=== PATIENT | male | born 1950 | race Caucasian/White ===

== ENCOUNTER → 2018-01-30 14:40 | Outpatient (CLI) | payer MEDICARE, SELFPAY ==
[2018-01-30 15:01] LABS: Absolute Lymphocyte Count 1.79 X10^3/ul (0.83-4.51); Basophil# 0.01 X10^3/uL; Basophil% 0.1 % (0-1); Eosinophil# 0.11 X10^3/uL; Eosinophils% 1.5 % (0-5); Hematocrit 45.7 % (40-54); Hemoglobin 15.2 g/dl (13.0-16.5); Lymphocyte # 1.79 X10^3/ul (4.0); Lymphocyte % 24.6 % (19-41); Mean Corp Hgb Conc 33.3 g/gl (32-36); Mean Corpuscular Hgb 29.6 pg (27.0-32.0); Mean Corpuscular Volume 88.9 fL (80-94); Mean Platelet Vol. 9.8 fl (6.2-12.0); Monocyte# 0.35 X10^3/uL; Monocyte% 4.8 % (0-10); Neutrophil # 5.01 X10^3/uL (2.7-7.7); Neutrophil % 68.9 % (47-70); Platelet Count 186 K/mm3 (150-450); RBC Distribution Width CV 13.7 % (11.6-14.6); RBC Distribution Width SD 44.7 fl (35.1-43.9); Red Blood Count 5.14 M/mm3 (4.6-6.2); White Blood Count 7.3 K/mm3 (4.4-11.0)
[2018-01-30 15:02] LABS: POSITIVE COUNT NO; POSITIVE DIFFERENTIAL NO; POSITIVE MORPHOLOGY NO
[2018-01-30 15:07] LABS: Erythrocyte Sedimentation Rate 17 mm/hr (0-20)
[2018-01-30 15:16] LABS: Anion Gap 5 (5-15); BUN 13 mg/dL (7-18); BUN/Creat Ratio 12.9 RATIO (10-20); Calcium,Total 8.4 mg/dL (8.5-10.1); Chloride 107 mmol/L (98-107); Creatinine, Serum 1.01 mg/dL (0.70-1.30); EST Glomerular Filtration Rate 78 mL/min (>60); Est Glom Filt Rate - Afr Amer 95 mL/min (>60); Glucose 102 mg/dL (74-106); Potassium 4.1 mmol/L (3.5-5.1); Sodium Level 141 mmol/L (136-145)
--- NOTE | 2018-01-30 17:00 | CT_ITS ---
CT Abdomen And Pelvis W/ Contrast INDICATION: LLQ PAIN, CHOLECYSTECTOMY, PARTIAL COLECTOMY D/T DIVERTICULITIS, ANAL FISSURE REPAIR COMPARISON: None TECHNIQUE: Axial CT imaging of the abdomen and pelvis with oral and intravenous contrast. Coronal and sagittal reformatted images. Radiation dose optimization technique applied. 100 mL of Isovue-300 were given intravenously. FINDINGS: Focal segmental atelectasis is noted at the left posterior lung base. Heart size is within normal limits. The left hemidiaphragm is elevated. The liver and spleen are normal in size. The gallbladder is surgically absent with mild intra-and extrahepatic biliary ductal dilatation. The adrenal glands and pancreas are grossly unremarkable. The kidneys enhance contrast symmetrically bilaterally and are without evidence of hydronephrosis. Small left cortical renal cyst is noted. Bowel loops are nondistended. Appendix is not seen. Postsurgical sutures are noted at the rectosigmoid. There is sigmoid diverticulosis without evidence of acute diverticulitis. Oral contrast material advances regularly throughout the nondistended small bowel loops and colon, seen at the level of the transverse colon at the time of the scan. No evidence of obstruction. Prostate gland is mildly heterogenous and measures 4.5 cm. Urinary bladder is decompressed. Bladder wall is mildly thickened. No evidence of free air or free fluid. The osseous structures demonstrate minimal lumbar scoliosis and early degenerative changes. Incidental note is made of a right-sided testicular hydrocele. CT/Abdomen/Pelvis WITH Contrast IMPRESSION: Sigmoid diverticulosis without evidence of acute diverticulitis at this time. No acute intra-abdominal pelvic pathology identified. at 1739 Reported and signed by: Zo Gomez MD Electronically Signed: Zo Gomez MD at 17:37 EDT Tel , Service support ,
--- NOTE | 2018-01-31 11:46 | EKG12_ITS ---
Test Reason : PRE-OP Blood Pressure : / mmHG Vent. Rate : 087 BPM Atrial Rate : 087 BPM P-R Int : 118 ms QRS Dur : 104 ms QT Int : 364 ms P-R-T Axes : 074 027 047 degrees QTc Int : 438 ms Normal sinus rhythm Possible Left atrial enlargement Borderline ECG Confirmed by MOISES MOONEY, DAVE ([id number]), book or script editor LEMUEL WASHINGTON ([id number]) on 02/03/2018 2:46:33 PM Referred By: Nilay Chino Confirmed By:DAVE DE LEON MD
== END ==
PROVIDERS: Family Provider Family Medicine; PCP Family Medicine; Visit Provider Surgery
DX: R10.32 Left lower quadrant pain (principal)
CPT/HCPCS: 36415; 74177; 80048; 85025; 85652; Q9967

== ENCOUNTER 2018-02-04 05:17 | Day surgery (SDC) | payer MEDICARE, SELFPAY ==
[2018-02-04] VITALS (9 sets, daily range): BP systolic 105–138; BP diastolic 67–86; PULSE 71–83; RESP 14–18; TEMP 36.1–36.6; O2SAT 94–98; BMI 28.5
--- NOTE | 2018-02-04 07:06 | PCM.DC.REC ---
Discharge Diet: No Restrictions Discharge Activity: Return to Normal Activity, May Not Drive - while you are taking narcotic pain medications. Do not drive, work with heavy equipment or sign legal documents for 24 hours after your surgery. Additional Activity Instructions:: Please eat a high-fiber diet and take a daily fiber supplementation. You may utilize 30 cc or 1 ounce of mineral oil in juice or food daily for 1 week. A sitz bath and warm soapy water every 4 hours or as needed for hygiene will be comfort. You may remove the Vaseline gauze tomorrow morning. Allergies/Adverse Reactions: Allergies No Known Allergies Allergy (Verified 01/28/18 13:23) Medications to take at Discharge aspirin 81 mg tablet,delayed release 81 mg PO DAILY 01/21/18 fluticasone 50 mcg/actuation nasal spray,suspension 2 spray INTRANASAL QDAY 01/21/18 hydrocortisone 2.5 % topical cream with perineal applicator 1 applic RC QD-BID PRN 01/21/18 lisinopril 10 mg tablet 10 mg PO QDAY 01/21/18 Citrucel 1 dose PO DAILY 01/28/18 Hydrocodone Bitart/Apap 5-325 [[place] 5MG-325MG] 1 tablet PO Q4H PRN PRN 4 Days #20 tablet 02/04/18 Metronidazole 250 mg PO TID #15 tab 02/04/18 The following prescriptions were given: Hydrocodone Bitart/Apap 5-325 [[place] 5MG-325MG] 1 tablet PO Q4H PRN PRN 4 Days #20 tablet PRN Reason: Pain Metronidazole 250 mg PO TID #15 tab Primary Care Physician: Abdoulaye Barber MD [Primary Care Provider] - Please Follow Up With: Nilay Chino MD - [phone] When: Plan to have a follow up approximately 3 weeks after surgery.
--- NOTE | 2018-02-04 07:15 | HEM_PTH ---
PATIENT: MEHRAN HALE LOC: [facility] [place] U#:[id number] AGE/SX: 67/M ROOM: RE02/04/[address]: Dr. Nilay Chino MD : 1950 BED: DIS: 02/04/2018 SPEC #: [id number] RECD: 02/04/18 08:10 STATUS: PEDRO JONH #: [id number] MARIE: 02/04/18 07:[address]: Nilay Chino DEPT: SURGICAL PATHOLOGY RECD BY: Tato Andrade ENTERED: 02/04/18 09:29 SP TYPE: HEMORRHOID OTHR DR: Dr. Abdoulaye Barber MD Tissues: HEMORRHOIDS Procedures: Surgery Specimen Level III HEADER OPERATION: Rectal exam under anesthesia, hemorrhoidectomy PRE-OP DIAGNOSIS: Grade III hemorrhoids TISSUE SUBMITTED: Hemorrhoids MICROSCOPIC DIAGNOSIS Hemorrhoids, hemorrhoidectomy: Submucosal vascular ectasia and thrombosis consistent with hemorrhoids. AM:jessica 02/05/18 MICROSCOPIC DESCRIPTION Slides are reviewed. GROSS DESCRIPTION Received in fixative is one container labeled with the patient's name and designated hemorrhoids. The specimen consists of two glistening fragments of garay mucosa with attached hemorrhagic submucosal tissue ranging in size from 2.6 to 4.5 cm in greatest dimension. No gross mass lesions are identified. Interventional Tech sections from both fragments are submitted in two cassettes. / AM:jessica 02/04/18 TC:5 CPT: 52745
[2018-02-04] MEDS: Bupivacaine 0.25% 30 ML Vial (07:19)
[2018-02-04] MEDS: BUPIVACAINE LIPOSOME/PF 20 ML VIAL OPERA.SITE (07:19)
[2018-02-04] MEDS: Dibucaine 30 GM Tube 1 APPLIC (07:57)
--- NOTE | 2018-02-04 08:02 | PCM.OPRPT ---
Problem List (1) Hemorrhoids Status: Acute Qualifiers: Report of Operation Date of Procedure: 02/04/18 Pre-Operative Diagnosis: Rectal bleeding, suspected grade 3 hemorrhoids Post-Operative Diagnosis: Grade 3 internal hemorrhoids, healed anterior fissure Surgery/Procedure Performed:: Examination under anesthesia. Extensive internal hemorrhoidectomy. Description of Surgical Findings:: Timeout and informed consent was obtained. 67-year-old gentleman was taken to the operating place prone on the table. 0.25% Marcaine was mixed with Exparel to total 40 cc. The perianal area was prepped. There was erythema excoriation around the anus. The locally she used as an anesthetic as he underwent monitored anesthesia care local anesthetic. In addition he received 2 g of cefotetan inspection revealed a remote fully healed anterior anal fissure. There was exuberant internal hemorrhoids both on the right and left lateral with friability and easy bleeding. Sequentially I placed an apical suture of 2-0 chromic I used harmonic scalpel to excise this and the excess external anal skin. I then approximated mucosa with a running locking 2-0 chromic. I placed an apical lzophc-[id number]-tqqlu suture of 0 chromic to secure the stalk. That was performed bilaterally in eradicated the vast majority of internal hemorrhoidal disease. Small amounts of remaining internal hemorrhoid was simply treated with harmonic scalpel. Hemostasis was intact. A vascular gauze saturated with dibucaine was placed. Sterile dressings placed. Sponge, instrument, needle counts reported the surgeon for correct. Specimens include the hemorrhoids. Drains none. Blood loss minimal. The specimens were submitted in formalin for analysis. No apparent complication. Nilay Chino M.D., F.A.C.S. Type of Anesthesia:: Local MAC Anesthesiologist: Rubia Romo
--- NOTE | 2018-02-04 08:09 | OP.PCM_ITS ---
Problem List (1) Hemorrhoids Status: Acute Qualifiers: Report of Operation Date of Procedure: 02/04/18 Pre-Operative Diagnosis: Rectal bleeding, suspected grade 3 hemorrhoids Post-Operative Diagnosis: Grade 3 internal hemorrhoids, healed anterior fissure Surgery/Procedure Performed:: Examination under anesthesia. Extensive internal hemorrhoidectomy. Description of Surgical Findings:: Timeout and informed consent was obtained. 67-year-old gentleman was taken to the operating place prone on the table. 0.25% Marcaine was mixed with Exparel to total 40 cc. The perianal area was prepped. There was erythema excoriation around the anus. The locally she used as an anesthetic as he underwent monitored anesthesia care local anesthetic. In addition he received 2 g of cefotetan inspection revealed a remote fully healed anterior anal fissure. There was exuberant internal hemorrhoids both on the right and left lateral with friability and easy bleeding. Sequentially I placed an apical suture of 2- 0 chromic I used harmonic scalpel to excise this and the excess external anal skin. I then approximated mucosa with a running locking 2-0 chromic. I placed an apical wzuapx-ts-hxaiv suture of 0 chromic to secure the stalk. That was performed bilaterally in eradicated the vast majority of internal hemorrhoidal disease. Small amounts of remaining internal hemorrhoid was simply treated with harmonic scalpel. Hemostasis was intact. A vascular gauze saturated with dibucaine was placed. Sterile dressings placed. Sponge, instrument, needle counts reported the surgeon for correct. Specimens include the hemorrhoids. Drains none. Blood loss minimal. The specimens were submitted in formalin for analysis. No apparent complication. Nilay Chino M.D., F.A.C.S. Type of Anesthesia:: Local MAC Anesthesiologist: Rubia Romo
== END 2018-02-04 09:39 | disposition home or self-care (01) ==
LOC: SDC 05:17 → AC 05:22
PROVIDERS: Family Provider Family Medicine; PCP Family Medicine; Visit Provider Surgery
PROC: (CPT 46260; principal; 2018-02-04 07:00)
DX: K64.2 Third degree hemorrhoids (principal); Z85.828 Personal history of other malignant neoplasm of skin; I10 Essential (primary) hypertension; Z87.891 Personal history of nicotine dependence; Z79.82 Long term (current) use of aspirin; Z79.899 Other long term (current) drug therapy; Z79.51 Long term (current) use of inhaled steroids
CPT/HCPCS: 46260; 88304; 93005; J7120; J2405

== ENCOUNTER 2018-02-07 05:00 | Emergency (ER) | payer MEDICARE, SELFPAY ==
[2018-02-07 05:01] VITALS: BP 142/98; PULSE 79; RESP 18; TEMP 36.3; O2SAT 97; BMI 29.5
--- NOTE | 2018-02-07 05:18 | ED.VISSUMM ---
- ER Visit Summary Date of Service: 02/07/18 Chief Complaint: Dizziness History of Present Illness: The patient is a 67 M who woke up early this morning and felt dizzy. He describes as a room spinning sensation. He did fall onto his bed because he was so dizzy. He denies a headache. He denies any chest pain. He does feel some slight nausea. He has never had anything like this before. Denies any weakness of his arms or legs. He did have a hemorrhoidectomy done on Saturday. He has been having some mild rectal plane and mild bleeding. He is currently on Flagyl as well. Physical Examination: Vital signs reviewed. HEENT exam unremarkable, except for bilateral nystagmus which does exacerbate symptoms. Heart is regular rate and rhythm without murmurs. Lungs are clear to auscultation. Abdomen is soft and nontender. Extremities reveal no edema. Skin exam normal. Neurologic exam normal. Test Results: Laboratory studies are unremarkable Emergency Department Course and Treatment: Patient was given Zofran, normal saline and meclizine. He feels better after this. This sounds like vertigo. I do not feel any imaging is necessary. I will treat him with meclizine and Zofran at home. He will follow-up with his PCP Treatment Plan: [] Disposition: Discharge Impression: Vertigo This note was generated with [employer] dictation software. It may contain incorrect words, spelling, and punctuation that were not noted in review of the chart prior to signing ED Disposition - Plan for ED Patient: Chief Complaint: Dizziness Referrals: Abdoulaye Barber MD [Primary Care Provider] -
[2018-02-07 05:53] LABS: Absolute Neutrophil Count 4.5 X10^3/uL (2.0-7.7); Basophil# 0.02 X10^3/uL; Basophil% 0.3 % (0-1); Eosinophil# 0.15 X10^3/uL; Eosinophils% 2.4 % (0-5); Hematocrit 42.9 % (40-54); Mean Corp Hgb Conc 32.6 g/gl (32-36); Mean Corpuscular Hgb 29.4 pg (27.0-32.0); Mean Corpuscular Volume 90.1 fL (80-94); Mean Platelet Vol. 9.9 fl (6.2-12.0); Monocyte# 0.44 X10^3/uL; Neutrophil % 71.3 % (47-70); Platelet Count 174 K/mm3 (150-450); RBC Distribution Width CV 13.9 % (11.6-14.6); RBC Distribution Width SD 45.9 fl (35.1-43.9); Red Blood Count 4.76 M/mm3 (4.6-6.2); White Blood Count 6.3 K/mm3 (4.4-11.0)
[2018-02-07] MEDS: 0.9% Normal Saline 1,000 ML 999 ML IV (05:57)
[2018-02-07] MEDS: Meclizine 12.5 MG Tablet 25 MG PO (05:57)
[2018-02-07] MEDS: Ondansetron 4 MG/2 ML Vial IV (05:57)
[2018-02-07 05:58] LABS: POSITIVE COUNT NO; POSITIVE DIFFERENTIAL NO; POSITIVE MORPHOLOGY NO
[2018-02-07 06:02] LABS: Anion Gap 4 (5-15); BUN 13 mg/dL (7-18); BUN/Creat Ratio 13.2 RATIO (10-20); Calcium,Total 8.5 mg/dL (8.5-10.1); Chloride 109 mmol/L (98-107); Creatinine, Serum 0.98 mg/dL (0.70-1.30); EST Glomerular Filtration Rate 81 mL/min (>60); Est Glom Filt Rate - Afr Amer 98 mL/min (>60); Estimated Creatinine Clearance 74.15 ml/min; Glucose 110 mg/dL (74-106); Potassium 3.5 mmol/L (3.5-5.1); Sodium Level 144 mmol/L (136-145)
--- NOTE | 2018-02-07 06:43 | ED.DEP ---
ED Disposition - Plan for ED Patient: Disposition: Home or Assisted Living Chief Complaint: Dizziness Instructions: ED BPV Vertigo Prescriptions: Ondansetron [Zofran Odt] 4 mg PO Q8H PRN PRN #10 tab PRN Reason: Nausea Meclizine HCl [Antivert] 25 mg PO 4X/DAY PRN PRN #20 tab PRN Reason: Dizziness Referrals: Abdoulaye Barber MD [Primary Care Provider] -
[2018-02-07 06:51] VITALS: BP 142/94; PULSE 69; RESP 15; O2SAT 98
== END 2018-02-07 06:51 | disposition home or self-care (01) ==
PROVIDERS: Emergency Provider Emergency Medicine; Family Provider Family Medicine; PCP Family Medicine
DX: R42 Dizziness and giddiness (principal); I10 Essential (primary) hypertension; Z87.19 Personal history of other diseases of the digestive system; Z79.2 Long term (current) use of antibiotics; Z79.82 Long term (current) use of aspirin; Z79.899 Other long term (current) drug therapy
CPT/HCPCS: 80048; 85025; 96374; 99284; J7030; A4216; J2405

== ENCOUNTER → 2018-05-07 09:33 | Outpatient (CLI) | payer MEDICARE, SELFPAY ==
[2018-05-07 10:58] LABS: PSA,Total- Diagnostic 3.76 ng/mL (0.0-4.0)
== END ==
PROVIDERS: Family Provider Family Medicine; PCP Family Medicine; Visit Provider Urology
DX: R97.20 Elevated prostate specific antigen [PSA] (principal)
CPT/HCPCS: 36415; 84153

== ENCOUNTER → 2018-08-21 08:09 | Outpatient (CLI) | payer MEDICARE, SELFPAY ==
--- NOTE | 2018-08-21 08:20 | CT_ITS ---
STUDY: CT SOFT TISSUE NECK WITH CONTRAST REASON FOR EXAM: Male, 68 years old. Diffuse neck pain. History of hypertension. RADIATION DOSAGE (If Supplied By Facility): CTDIvol = ( 19.90 ) mGy, DLP = ( 650.94 ) mGycm TECHNIQUE: The patient was scanned in a multi-detector CT scanner. High resolution transaxial imaging was performed following intravenous administration of 75 ml of Isovue 300 contrast material. Sagittal and coronal images were reconstructed. Individualized dose optimization techniques were used for this CT. COMPARISON: None. FINDINGS: Normal bilateral parotid glands. Normal bilateral dust collector spaces. Normal bilateral parapharyngeal spaces. Normal bilateral carotid spaces. Normal bilateral sublingual and submandibular glands and spaces. Normal visualized nasopharynx. Normal retropharyngeal space. Normal perivertebral space. Normal visualized bilateral faucial tonsils. The visualized tongue, tongue base and oropharynx are normal. The visualized cervical lymph nodes (levels I-) are within normal size limits, and maintain normal morphology. There is no demonstrated solid or cystic mass lesion. There is no abnormal contrast enhancement. Normal epiglottis, bilateral vallecula and hypopharynx. The pre-epiglottic and paraglottic adipose spaces are normal. Normal visualized bilateral piriform sinuses, aryepiglottic folds, vocal cords, and arytenoid-cricoid articulations. Normal subglottic trachea. Normal bilateral lobes of the thyroid gland. Normal visualized pulmonary apices. Small sized mucosal retention cyst in the right maxillary sinus. There is multilevel degenerative changes of the cervical spine. Great vessels of the neck are within normal limits. CT/Soft Tissue Neck WITH Contrast IMPRESSION: No acute findings. No evidence of abscess or bulky lymphadenopathy. Unremarkable salivary glands. Electronically Signed: Fede Urbano DO at 8:15 EST Tel , Service support ,
[2018-08-21 08:31] LABS: CREATININE FINGERSTICK 0.9 mg/dL (0.70-1.30)
== END ==
PROVIDERS: Family Provider Family Medicine; PCP Family Medicine; Referring Provider Otolaryngology; Visit Provider Otolaryngology
DX: M54.2 Cervicalgia (principal)
CPT/HCPCS: 70491; Q9967

== ENCOUNTER 2018-10-16 16:47 | Emergency (ER) | payer MEDICARE, SELFPAY ==
[2018-10-16 16:50] VITALS: BP 157/94; PULSE 72; RESP 14; TEMP 36.1; O2SAT 99; BMI 29.5
--- NOTE | 2018-10-16 17:14 | CT_ITS ---
STUDY: CT BRAIN WITHOUT CONTRAST REASON FOR EXAM: Male, 68 years old. Dizziness. RADIATION DOSAGE (If Supplied By Facility): CTDIvol = ( 44.99 ) mGy, DLP = ( 745.49 ) mGycm TECHNIQUE: Transaxial CT imaging of the brain was performed without administration of intravenous contrast material. Individualized dose optimization techniques were used for this CT. COMPARISON: None. FINDINGS: Normal soft tissue structures. Normal calvarium. Normal size ventricles and extra-axial spaces for the patient's age. Normal white matter tracts of the cerebral hemispheres. Normal basal ganglia and thalami. Normal brainstem. Normal cerebellum. There is no intracranial hemorrhage. There are no findings of an acute ischemic infarction. Normal visualized paranasal sinuses. CT/Brain/Head without Contrast IMPRESSION: Normal unenhanced CT scan of the brain. Electronically Signed: Lan Turner MD at 19:32 EST , Service support ,
--- NOTE | 2018-10-16 17:16 | ED.VISSUMM ---
- ER Visit Summary Date of Service: 10/16/18 Chief Complaint: Dizziness History of Present Illness: The patient is a 68 M who presents with dizziness for the past 3 weeks. Patient saw his ENT physician who did some positioning maneuvers and prescribed Flonase and meclizine. Patient states he does not feel any better. Patient describes his dizziness as a lightheaded. Patient denies any spinning sensation. Patient states it is worse with head movement and with laying down. Patient does admit to some tinnitus in both ears but worse on the right. Patient denies any fevers but admits to some subjective chills that have been intermittent. Patient admits to some nausea but denies any vomiting. Patient does admit to headache and neck pain that feels more like a pressure. Physical Examination: Vital signs are stable. Patient is afebrile. Patient is in no acute distress. Cranial nerves II through XII are intact. There are no focal motor or sensory deficits noted. Pupils are equal, round, and reactive to light bilaterally. Extraocular muscles are intact. There is no nystagmus noted. However, the patient did feel dizzy with extraocular movements. Tympanic membranes were clear bilaterally. Oral mucosa is pink and moist. Neck is supple. Trachea is midline. There is no JVD noted. Heart was regular rate and rhythm. Lungs are clear and equal bilateral. Abdomen is soft and nontender. The remaining physical exam is within normal limits. Test Results: CBC and basic metabolic profile were obtained and were within normal limits. CT scan of the brain was obtained. There is no acute intracranial abnormality noted. Emergency Department Course and Treatment: Patient was given IV fluids. Patient was given a dose of Benadryl here. Patient had no relief of his dizziness with this. Case was discussed with the hospitalist. He recommended discussing the case with the patient's ENT physician. Case was discussed with Dr. De Guzman who is covering for Dr. Leon. He recommended giving the patient a prescription for Valium and following up with Dr. Leon for outpatient MRI and vestibular rehab. Patient was given a prescription for Valium. Patient was instructed to follow-up in 5-7 days. Patient understood and was agreeable with the plan. All questions were answered. Disposition: Discharge home Impression: Dizziness This note was generated with [employer] software. It may contain incorrect words, spelling, and punctuation that were not noted in review of the chart prior to signing ED Disposition - Plan for ED Patient: Disposition: Home or Assisted Living Chief Complaint: Dizziness Diagnosis: Dizziness Instructions: ED Dizziness [facility] Prescriptions: Diazepam [Valium] 5 mg PO Q8H PRN PRN 3 Days #10 tab PRN Reason: Dizziness Referrals: Abdoulaye Barber MD [Primary Care Provider] -
[2018-10-16] MEDS: 0.9% Normal Saline 1,000 ML 1000 ML IV (17:36)
[2018-10-16 17:52] LABS: Absolute Lymphocyte Count 1.73 X10^3/ul (0.83-4.51); Absolute Neutrophil Count 7.4 X10^3/uL (2.0-7.7); Basophil# 0.02 X10^3/uL; Basophil% 0.2 % (0-1); Eosinophil# 0.04 X10^3/uL; Eosinophils% 0.4 % (0-5); Hematocrit 49.3 % (40-54); Hemoglobin 16.4 g/dl (13.0-16.5); Lymphocyte # 1.73 X10^3/ul (4.0); Lymphocyte % 17.5 % (19-41); Mean Corp Hgb Conc 33.3 g/gl (32-36); Mean Corpuscular Hgb 29.9 pg (27.0-32.0); Mean Platelet Vol. 9.9 fl (6.2-12.0); Monocyte# 0.64 X10^3/uL; Monocyte% 6.5 % (0-10); Neutrophil # 7.41 X10^3/uL (2.7-7.7); Neutrophil % 75.2 % (47-70); Platelet Count 176 K/mm3 (150-450); RBC Distribution Width CV 14.1 % (11.6-14.6); RBC Distribution Width SD 46.4 fl (35.1-43.9); Red Blood Count 5.48 M/mm3 (4.6-6.2); White Blood Count 9.9 K/mm3 (4.4-11.0)
[2018-10-16 17:54] LABS: POSITIVE COUNT NO; POSITIVE DIFFERENTIAL NO; POSITIVE MORPHOLOGY NO
[2018-10-16 18:00] LABS: Anion Gap 7 (5-15); BUN 12 mg/dL (7-18); BUN/Creat Ratio 12.4 RATIO (10-20); Calcium,Total 8.9 mg/dL (8.5-10.1); Chloride 103 mmol/L (98-107); Creatinine, Serum 0.96 mg/dL (0.70-1.30); EST Glomerular Filtration Rate 83 mL/min (>60); Est Glom Filt Rate - Afr Amer 100 mL/min (>60); Estimated Creatinine Clearance 74.67 ml/min; Glucose 99 mg/dL (74-106); Potassium 3.8 mmol/L (3.5-5.1); Sodium Level 142 mmol/L (136-145)
[2018-10-16 19:24] VITALS: BP 141/90; PULSE 80; RESP 14; O2SAT 98; BMI 29.5
--- NOTE | 2018-10-16 20:14 | PCM.HP.STD ---
History of Present Illness The patient is a 68 year old M [] Past Medical History Past Medical History (Chronic Problems): Chronic Problems (Last Reviewed 02/24/18 @ 08:49 by Marta Rosario) Hypertension (Chronic) Medical History: Medical History (Last Reviewed 02/24/18 @ 08:49 by Marta Rosario) Hemorrhoids (Acute) K64.9 Chest pain (Acute) R07.9 Hypertension (Chronic) I10 Allergies No Known Allergies Allergy (Verified 10/16/18 16:52) Home Medications: Ambulatory Orders Medication Instructions Recorded aspirin 81 mg tablet,delayed 81 mg PO DAILY 01/21/18 release fluticasone 50 mcg/actuation nasal 2 spray INTRANASAL QDAY 01/21/18 spray,suspension lisinopril 10 mg tablet 10 mg PO DAILY 01/21/18 Acetaminophen [Tylenol Extra 1,000 mg PO Q6H PRN PRN 10/16/18 Strength] MethylPREDNISolone DosePak [Medrol 4 mg PO UD 10/16/18 DosePak] Methylcellulose [Citrucel] 5 ml PO DAILY 10/16/18 Surgical History: Surgical History (Last Updated 02/24/18 @ 08:49 by Marta Rosario) H/O colonoscopy (Acute) Z98.890 2011 History of inguinal hernia repair (Acute) Z98.890, Z87.19 History of colon surgery (Acute) Z98.890 S/P laparoscopic cholecystectomy (Acute) Z90.49 S/P hemorrhoidectomy Z98.890, Z87.19 Surgical History: appendectomy, cholecystectomy, herniorrhaphy, - - Colon resection secondary to particular disease Psychiatric History: No pertinent psych hx Smoking Status: Never smoker Tobacco Use: Cigarettes - *Family History Maternal Family History: Family History (Last Reviewed 02/24/18 @ 08:49 by Marta Rosario) Mother Cancer History Items: Cancer - Lung cancer Paternal Family History: Family History (Last Reviewed 02/24/18 @ 08:49 by Marta Rosario) Mother Cancer History Items: No pertinent history - Physical Exam Vital Signs Temp Pulse Resp BP Pulse Ox 97 F L 80 14 141/90 H 98 10/16/18 16:50 10/16/18 19:24 10/16/18 19:24 10/16/18 19:24 10/16/18 19:24 Oxygen Delivery Method Room Air Weight: 90.718 kg Body Mass Index (BMI) 29.5 Laboratory Tests Past 24 Hrs 10/16/18 10/16/18 17:30 17:30 WBC 9.9 RBC 5.48 Hgb 16.4 Hct 49.3 MCV 90.0 MCH 29.9 MCHC 33.3 RDW 14.1 RDW Differential 46.4 H Plt Count 176 MPV 9.9 Immature Gran % (Auto) 0.200 Neut % (Auto) 75.2 H Lymph % (Auto) 17.5 L [place] % (Auto) 6.5 Eos % (Auto) 0.4 Baso % (Auto) 0.2 Absolute Neuts (auto) 7.4 Absolute Lymphs (auto) 1.73 Total Counted Not Reportable Sodium 142 Potassium 3.8 Chloride 103 Carbon Dioxide 32.0 Anion Gap 7 BUN 12 Creatinine 0.96 Estim Creat Clear Calc 74.67 Est GFR (MDRD) Af Amer 100 Est GFR (MDRD) Non-Af 83 BUN/Creatinine Ratio 12.4 Glucose 99 Calcium 8.9 Assessment/Plan All Active Problems (Last Reviewed 02/24/18 @ 08:49 by Marta Rosario) Hemorrhoids (Acute) H/O colonoscopy (Acute) History of inguinal hernia repair (Acute) History of colon surgery (Acute) S/P laparoscopic cholecystectomy (Acute) Chest pain (Acute)
[2018-10-16] MEDS: DiphenhydrAMINE 50 MG/ML Syringe 25 MG IV (20:29)
[2018-10-16 21:16] VITALS: BP 123/83; PULSE 78; RESP 16; O2SAT 95
== END 2018-10-16 21:23 | disposition home or self-care (01) ==
PROVIDERS: Emergency Provider Emergency Medicine; Family Provider Family Medicine; PCP Family Medicine
DX: R42 Dizziness and giddiness (principal); H93.13 Tinnitus, bilateral; R51 Headache; M54.2 Cervicalgia; R11.0 Nausea
CPT/HCPCS: 70450; 80048; 85025; 96361; 96374; 99283; J7030; A4216

== ENCOUNTER → 2018-10-23 07:04 | Outpatient (CLI) | payer MEDICARE, SELFPAY ==
[2018-10-16 16:50] VITALS: BMI 29.5
--- NOTE | 2018-10-23 07:17 | MRI_ITS ---
STUDY: MRI BRAIN WITH AND WITHOUT CONTRAST (ATTENTION INTERNAL AUDITORY CANALS - I.A.C.'s) REASON FOR EXAM: Male, 68 years old. dizziness, lightheaded x 4 wks, chronic tinnitus rt ear. TECHNIQUE: Standardized multiplanar fat and water weighted pulse sequences were obtained. 10 ml of Gadavist contrast material was administered intravenously for the contrast portion of the examination. COMPARISON: None. FINDINGS: Normal bilateral temporal bones. Normal bilateral internal auditory canals. There is no demonstrated intracanalicular or cisternal vestibular schwannoma (acoustic neuroma). There is no enhancement of the bilateral VIIth or VIIIth cranial nerves. Normal bilateral cochlea, vestibules and semicircular canals. Normal size of the ventricles and extra-axial spaces for the patient's age. Normal white matter tracts of the supratentorial brain. Normal bilateral basal ganglia. Normal thalami. Normal flow voids within the major intracranial circulation suggesting patency by spin echo criteria. Normal venous enhancement. There is no enhancing intra-axial or extra-axial abnormality. There is no extra-axial fluid accumulation. Normal sella turcica, pituitary gland, infundibular stalk, optic chiasm and hypothalamus. Normal tectal plate and pineal gland. Normal midbrain, lonnie and medulla. Normal cerebellum. Normal basal cisterns. No demonstrated orbital abnormality, within the constraints of a routine brain study. Normal visualized paranasal sinuses. Normal calvarium and skull base. Normal visualized soft tissue structures. Normal visualized upper cervical spine. MRI/Brain W/WO Contrast IMPRESSION: Normal unenhanced and enhanced MRI of the bilateral internal auditory canals (I.A.C's). Electronically Signed: Paola Pina MD at 8:06 EST Tel , Service support ,
== END ==
PROVIDERS: Family Provider Family Medicine; PCP Family Medicine; Referring Provider Otolaryngology; Visit Provider Otolaryngology
DX: R42 Dizziness and giddiness (principal)
CPT/HCPCS: 70553; A9585

== ENCOUNTER → 2018-11-14 16:18 | Outpatient (CLI) | payer MEDICARE, SELFPAY ==
[2018-11-14 15:12] VITALS: BMI 29.5
--- NOTE | 2018-11-14 15:15 | LES_PTH ---
PATIENT: MEHRAN HALE LOC: [facility] U#:[id number] AGE/SX: 75/M ROOM: RE11/14/[address]: Dr. Nilay Chino MD : 1950 BED: DIS: SPEC #: [id number] RECD: 11/14/18 16:12 STATUS: PEDRO JONH #: [id number] MARIE: 11/14/18 15:[address]: Nilay Chino DEPT: SURGICAL PATHOLOGY RECD BY: Tato Andrade ENTERED: 11/17/18 09:28 SP TYPE: Lesion OTHR DR: Dr. 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 AM:jessica 11/18/18 MICROSCOPIC DESCRIPTION Slides are reviewed. GROSS DESCRIPTION Received in fixative is one container labeled with the patient's name and designated right ear. The specimen consists of an irregular fragment of light garay soft tissue measuring 0.2 x 0.1 x 0.1 cm. The specimen is totally submitted in one cassette. / AM:jessica 11/17/18 TC:5 CPT: 52729
== END ==
PROVIDERS: Family Provider Family Medicine; PCP Family Medicine; Referring Provider Surgery; Visit Provider Surgery
DX: D48.5 Neoplasm of uncertain behavior of skin (principal)
CPT/HCPCS: 88305

== ENCOUNTER → 2018-11-18 09:35 | Outpatient (CLI) | payer MEDICARE, SELFPAY ==
[2018-11-14 15:12] VITALS: BMI 29.5
[2018-11-18 11:11] LABS: PSA,Total- Diagnostic 5.18 ng/mL (0.0-4.0)
== END ==
PROVIDERS: Family Provider Family Medicine; PCP Family Medicine; Referring Provider Urology; Visit Provider Urology
DX: R97.20 Elevated prostate specific antigen [PSA] (principal)
CPT/HCPCS: 36415; 84153

== ENCOUNTER 2018-12-14 09:34 | Emergency (ER) | payer MEDICARE, SELFPAY ==
[2018-11-14 15:12] VITALS: BMI 29.5
[2018-12-14 09:35] VITALS: BP 165/88; PULSE 92; RESP 16; TEMP 36.4; O2SAT 98; BMI 29.5
--- NOTE | 2018-12-14 10:16 | ED.VISSUMM ---
- ER Visit Summary Date of Service: 12/14/18 Chief Complaint: Allergic reaction History of Present Illness: The patient is a 68 M chief hypertension on lisinopril which she is been on for years. Recently was on fluoxetine for anxiety. On Saturday he started getting itching of his palm Saturday developed hives in his axilla chest and swelling of his lip. He is never had anything like this before. He denies any new soaps or colognes or detergents. He is on no other new medications. He denies feeling ill. He was seen in urgent care they told him to take Benadryl. He has been using children's Benadryl. However is not been improving. Physical Examination: Well-appearing older male. Vital signs are stable afebrile. H EENT exam unremarkable. Neck nontender no lymphadenopathy. Lungs clear to auscultation bilaterally. Heart regular rhythm no murmur. Abdomen soft nontender. Remedies moves all 4. He has had hives in both axilla. Rash along his neck that is red and blanches. Swelling of his lips mildly. Not his tongue. Posterior pharynx is unremarkable. No trouble swallowing or breathing. Neurologically is awake alert with no focal motor deficits. Test Results: None Emergency Department Course and Treatment: P.o. prednisone and Benadryl. Discharged home. Treatment Plan: This may or may not be a reaction to the lisinopril. I explained that to the patient and his . We will hold the lisinopril for now. He will be started on prednisone 40 mill grams a day for the next 7 days. Benadryl as needed. And follow-up with his primary care physician to be placed on a new antihypertensive medication. Disposition: Discharge Impression: Acute allergic reaction (concern for MELCHOR inhibitor reaction) This note was generated with [employer] dictation software. It may contain incorrect words, spelling, and punctuation that were not noted in review of the chart prior to signing ED Disposition - Plan for ED Patient: Referrals: Abdoulaye Barber MD [Primary Care Provider] -
--- NOTE | 2018-12-14 10:19 | ED.DEP ---
ED Disposition - Plan for ED Patient: Disposition: Home or Assisted Living Instructions: ED Allergic Reaction General Other Prescriptions: Prednisone [Deltasone] 40 mg PO DAILY 7 Days tab Referrals: Abdoulaye Barber MD [Primary Care Provider] - As soon as possible Additional Instructions: Stop your lisinopril for now. Discussed your primary care physician me and placed on a new blood pressure medication that is not in the same class as lisinopril (MELCHOR inhibitors). Prednisone 40 mg a day starting tomorrow. May stop 24-48 hours after rash is gone. Benadryl as needed for itching 25-50 mg up to 4 times a day.
[2018-12-14] MEDS: DiphenhydrAMINE 25 MG Capsule PO (10:22)
[2018-12-14] MEDS: predniSONE 20 MG Tablet 60 MG PO (10:22)
== END 2018-12-14 11:06 | disposition home or self-care (01) ==
LOC: ED 10:34
PROVIDERS: Emergency Provider Emergency Medicine; Family Provider Family Medicine; PCP Family Medicine
DX: T78.40XA Allergy, unspecified, initial encounter (principal); I10 Essential (primary) hypertension; Z79.899 Other long term (current) drug therapy; Z79.82 Long term (current) use of aspirin
CPT/HCPCS: 99283

== ENCOUNTER → 2019-01-21 14:47 | Outpatient (CLI) | payer MEDICARE, SELFPAY | PROVIDERS: Family Provider Family Medicine; PCP Family Medicine; Referring Provider Urology; Visit Provider Urology | DX: R97.20 Elevated prostate specific antigen [PSA] (principal) | CPT/HCPCS: 36415; 84153 ==

== ENCOUNTER 2019-03-15 09:05 | Emergency (ER) | payer MEDICARE, SELFPAY ==
[2019-03-15 09:07] VITALS: BP 161/91; PULSE 77; RESP 20; TEMP 36.6; O2SAT 96; BMI 29.5
--- NOTE | 2019-03-15 09:15 | RAD_ITS ---
STUDY: X-RAY - LEFT ELBOW REASON FOR EXAM: Male, [address] Kaye TECHNIQUE: 3 view(s) of the elbow. COMPARISON: None. FINDINGS: Normal visualized humerus, radius and ulna. There is degenerative arthrosis of the radiocapitellar and ulnotrochlear articulations. There is enthesopathy of the olecranon. There is also enthesopathy at the bilateral collateral ligaments of the elbow. The soft tissue structures are unremarkable. RAD/Elbow min 3 Views IMPRESSION: Degenerative change of the left elbow. No visualized acute fracture. If patient's pain or symptoms persist an MRI may be warranted to evaluate for any soft tissue injury. Electronically Signed: Shelby Babcock MD at 9:51 EDT Tel , Service support ,
[2019-03-15] MEDS: Naproxen 500 MG Tablet PO (09:30)
[2019-03-15] MEDS: HYDROcodone Bitartrate/Apap 5/325 Tablet PO (09:30)
--- NOTE | 2019-03-15 09:35 | ED.DCSUM_ITS ---
History of Present Illness Chief Complaint: Upper Extremity Injury Informant: Patient Occurred: Today Mechanism/Context: Injury Current Severity: Mild Maximum Severity: Severe Worsened by: Palpation or movement Relieved by: Better with rest Associated Symptoms: Loss of Funtion. Negative for: Parasthesia, Weakness Narrative: Patient is a 68-year-old [id number] male who presents with injury to his left elbow. He states he was working on his brakes prior to going to religion. He pulled on the ranch with his left upper extremity and felt a snap and pop which he localizes in the proximity of the left radial head. He is presently holding his left upper extremity adductor and internally rotated with the elbow flexed at 90 degrees. He denies paresthesia or anesthesia. He denies direct trauma. Prior similar symptoms: No Recent Illness/Hospitalization: No - Past Medical History (1) Hypertension Status: Chronic Past Medical History - Allergies and Home Meds Allergies/Adverse Reactions: Allergies lisinopril Allergy (Verified 03/15/19 09:10) Angioedema Primary Care Physician: Abdoulaye Barber MD [Primary Care Provider] - Surgical History: appendectomy, cholecystectomy, herniorrhaphy, - - Colon resection secondary to particular disease Lives: Spouse/ Significant Other Smoking Status: Former smoker Drugs: None - Family History Maternal Family History: Family History (Last Reviewed 11/19/18 @ 12:55 by Judy Quiroz) Mother Cancer Family History: Reports: Cancer - Lung cancer Paternal Family History: Family History (Last Reviewed 11/19/18 @ 12:55 by Judy Quiroz) Mother Cancer Family History: Reports: No pertinent history Review of Systems Musculoskeletal: Reports: Extremity Pain - Left elbow. Patient points to the region of over the radial head.. Denies: Myalgias, Arthralgias, Neck pain, Back pain, Swelling Skin: Denies: Rash, Wounds Neurological: Denies: Weakness, Parasthesia, Numbness Hematologic: Denies: Easy bruising, Easy bleeding Allergy: Denies: Uticaria, Swelling of the mouth Physical Exam Vital Signs/Narrative: Vital Signs Temp Pulse Resp BP Pulse Ox 03/15/19 09:07 98 F 77 20 H 161/91 H 96 Left Shoulder: Negative for: Abrasion, Contusion, Deformity, Edema, Hematoma, Limited ROM, - Left Humerus: Negative for: Abrasion, Contusion, Deformity, Edema, Hematoma, Limited ROM, - Left Elbow: Limited ROM. Negative for: Abrasion, Contusion, Deformity, Edema, Hematoma, - - Patient reluctant and hesitant to flex or extend. There is pain the patient over the radial head and pain is worse with supination pronation. There was no pain the patient over the lateral or medial epicondyle. There is no pain the patient over the olecranon process. Left Forearm: Negative for: Abrasion, Contusion, Deformity, Edema, Hematoma, Limited ROM, - Left Wrist: Negative for: Abrasion, Contusion, Deformity, Edema, Hematoma, Limited ROM, - - Radial pulses 2+. Left Hand: Negative for: Abrasion, Contusion, Deformity, Edema, Hematoma, Limited ROM, - Left Finger: Negative for: Abrasion, Contusion, Deformity, Edema, Hematoma, Limited ROM, - General: Well nourished, Well developed Head: Normocephalic, Atraumatic Eyes: Perrl, EOMI ENT: No Trauma, Moist Mucous Membranes Neck: Nontender, Full ROM Cardiovascular: Regular rate Respiratory: No distress Skin: Normal color, No rash, No Trauma. Negative for: Cyanosis, Diaphoresis, Jaundice Neurological: Alert, Oriented x3, Cranial nerves II-XII grossly intact, Normal Strength, Normal Sensation, - - Axillary, median, radial and ulnar function intact. Psychological: Normal affect Diagnostic/Tx/Re-eval Chest X-Ray - ED: Read by ED Physician, - - Three-view x-ray of the left elbow reveals no acute fracture. There is arthritic changes noted of the coronoid process. Negative anterior sail sign or posterior fat pad. - Medical Decision Making She received 500 mg Naprosyn and one Preston tablet for his discomfort. X-ray of the elbow was obtained to assess for fracture. Suspect radial head injury. With negative x-ray and negative anterior cell sign fat-pad patient has muscle skeletal injury. Will treat with sling and oral analgesia. We will have him follow-up with PCP in 1 week if not better. ED Disposition - Plan for ED Patient: Disposition: Home or Assisted Living Diagnosis: Unspecified sprain of left elbow, initial encounter Instructions: ED Sprain Elbow Prescriptions: Naproxen [Naprosyn] 500 mg PO BID #14 tab Referrals: Abdoulaye Barber MD [Primary Care Provider] - 1 Week if not improving
== END 2019-03-15 10:16 | disposition home or self-care (01) ==
PROVIDERS: Emergency Provider Emergency Medicine; Family Provider Family Medicine; PCP Family Medicine
DX: S53.402A Unspecified sprain of left elbow, initial encounter (principal); M19.022 Primary osteoarthritis, left elbow; X58.XXXA Exposure to other specified factors, initial encounter; Y93.9 Activity, unspecified; Y92.9 Unspecified place or not applicable; I10 Essential (primary) hypertension; Z79.82 Long term (current) use of aspirin; Z79.899 Other long term (current) drug therapy; Z87.891 Personal history of nicotine dependence
CPT/HCPCS: 73080; 99284

== ENCOUNTER 2019-10-05 07:19 | Emergency (ER) | payer MEDICARE, SELFPAY ==
[2019-10-05 07:20] VITALS: BP 142/85; PULSE 98; RESP 18; TEMP 36.8; O2SAT 99; BMI 29.5
--- NOTE | 2019-10-05 07:37 | ED.VIS.GEN ---
History of Present Illness Chief Complaint: Abd Pain Informant: Patient, Significant Other Onset: Month(s) - Onset approximately 1 month ago Context: Sudden Onset Timing: Intermittent Quality: Pain Location: Right side and sometimes moves to left Current Severity: - - Mild Maximum Severity: Moderate Worsened by: Nothing Relieved by: Nothing Associated Symptoms: No associated symptoms Narrative: Patient is 69-year-old male who presents with left lower quadrant bowel pain that has radiated to the left flank that started 1 month ago. The pain is not constant. There are no exacerbating, precipitating or alleviating factors. There is no associated nausea or vomiting. Patient reports 6 watery mushy stools since yesterday. 3 days ago he was placed on metronidazole and ciprofloxacin for presumed diverticulitis. He has a history of diverticulitis. He denies history of renal ureterolithiasis. He denies dysuria, frequency, urgency or hematuria presently. He states 1 month ago he had urinary symptoms. He did see urologist and was told he had prostatitis. He denied tender prostate on exam and denied testicular pain. He also denied tenesmus. 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 Denies: Visual changes - bilaterally, Blurred Vision - bilaterally, Diplopia ENT: Denies: Bilateral ear pain, Rhinorrhea, Sore throat Cardiovascular: Denies: Chest pain, Palpitations, Heart racing Respiratory: Denies: Dyspnea, Cough, Dyspnea on exertion, Orthopnea, Paroxysmal nocturnal dyspnea Gastrointestinal: Reports: Abdominal pain. Denies: Nausea, Vomiting, Diarrhea, Melena, Hematochezia Genitourinary: Denies: Dysuria, Hematuria, Frequency Musculoskeletal: Denies: Myalgias, Arthralgias, Neck pain, Back pain, Swelling, Extremity Pain Skin: Denies: Rash, Wounds Neurological: Denies: Headache, Weakness, Numbness Hematologic: Denies: Easy bruising, Easy bleeding Allergy: Denies: Uticaria Physical Exam Vital Signs/Narrative: Vital Signs Temp Pulse Resp BP Pulse Ox 10/05/19 07:20 98.3 F 98 18 142/85 H 99 Inital Vital Signs reviewed: Yes General: Well nourished, Well developed, No Acute Distress Head: Normocephalic, Atraumatic Eyes: Perrl, EOMI. Negative for: Pale conjunctiva, Scleral icterus ENT: Moist mucous membranes, No rhinorrhea, TM's clear Neck: Supple, Nontender, No lymphadenopathy, No JVD Cardiovascular: Regular rate, Regular rhythm, No murmurs, Normal S1, Normal S2 Respiratory: No distress, CTA bilaterally, Chest nontender Abdomen: Soft, Nondistended, Normal bowel sounds, No masses, Tender - Minimal/equivocal left lower quadrant abdominal pain. Negative for: Hepatomegaly, Splenomegaly, Ventral hernia, Inguinal hernia Back: Nontender, Normal Inspection. Negative for: CVA tenderness Extremities: Nontender, No edema, - - There is no asymmetry, discoloration or leg vein distention. There is no pain to palpation. Skin: Normal color, No rash, No Trauma. Negative for: Cyanosis, Diaphoresis, Jaundice Neurological: Alert, Oriented x3, Cranial nerves II-XII grossly intact, Normal Strength, Normal Sensation, Normal Gait Psychological: Normal affect, Normal Mood Diagnostic/Tx/Re-eval Impressions Abdomen/Pelvis CT 10/05/19 09:03 IMPRESSION: No acute abdominal or pelvic pathology. No hydronephrosis or renal stone. Electronically Signed: Dale Nicole, at 10:02 EST Tel , Service support , 10/05/19 09:03 Abdomen/Pelvis without Cont [CT] Stat Laboratory Results 10/05/19 10/05/19 10/05/19 07:34 07:34 08:05 WBC 6.4 RBC 5.37 Hgb 15.9 Hct 47.9 MCV 89.2 MCH 29.6 MCHC 33.2 RDW Std Deviation 43.8 RDW Coeff of [place] 13.5 Plt Count 171 MPV 9.7 Immature Gran % (Auto) 0.200 Neut % (Auto) 67.8 Lymph % (Auto) 22.8 [place] % (Auto) 6.7 Eos % (Auto) 2.0 Baso % (Auto) 0.5 Absolute Neuts (auto) 4.4 Absolute Lymphs (auto) 1.47 Nucleated RBC % 0 Sodium 143 Potassium 3.5 Chloride 108 H Carbon Dioxide 33.0 H Anion Gap 2 L BUN 9 Creatinine 1.04 Estim Creat Clear Calc 67.98 Est GFR (MDRD) Af Amer 91 Est GFR (MDRD) Non-Af 75 BUN/Creatinine Ratio 8.7 L Glucose 115 H Calcium 8.6 Urine Color Yellow Urine Clarity Clear Urine pH 6.0 Ur Specific [place] 1.025 Urine Protein Negative Urine Glucose (UA) Normal Urine Ketones Negative Urine Occult Blood 10 H Urine Nitrite Negative Urine Bilirubin Negative Urine Urobilinogen Normal Ur Leukocyte Esterase 25 H Urine RBC 0-5 SEEN Urine WBC 0-5 SEEN Ur Squamous Epith Cells 0 SEEN Urine Bacteria 0 SEEN Urine Mucus 0 SEEN CAT scan was reviewed by me and no obvious pathology noted. Formal read by radiologist revealed no evidence of renal ureterolithiasis and no intra-abdominal pathology noted. White count is normal. Renal function is normal. UA revealed leukoesterase however micro is insignificant was 0-5 RBCs and 0-5 WBCs with no bacteria. Patient was made aware of findings. He was instructed to discontinue antibiotics. He was informed the cause of his pain is unknown. - Rhythm Strip Rhythm Strip: Sinus Rhythm Rate: 88 Ectopy: PAC(s) - Medical Decision Making Patient presents with intermittent left lower quadrant abdominal pain. Because there is radiation to the left flank need to entertain possibility of ureterolithiasis. Suspect patient's diarrhea secondary to antibiotics he was placed for presumed diverticulitis. CBC was obtained to assess white count as well as H&H. Basic metabolic panel was obtained to assess renal function in the event a CT is needed and also to assess renal function since he is having diarrhea. UA was obtained to assess for evidence infection or blood that would raise possibility of ureterolithiasis. ED Disposition - Plan for ED Patient: Disposition: Home or Assisted Living Diagnosis: Left lower quadrant abdominal pain, Acute left flank pain Instructions: ABDOMINAL PAIN, Unkown Cause, (Male) Referrals: Abdoulaye Barber MD [Primary Care Provider] - 1 Week if not improving
[2019-10-05 07:42] LABS: Absolute Lymphocyte Count 1.47 X10^3/uL (0.83-4.51); Absolute Neutrophil Count 4.4 X10^3/uL (2.0-7.7); Basophil# 0.03 X10^3/uL; Basophil% 0.5 % (0-1); Eosinophil# 0.13 X10^3/uL; Hematocrit 47.9 % (40-54); Hemoglobin 15.9 g/dL (13.0-16.5); Lymphocyte # 1.47 X10^3/ul (4.0); Lymphocyte % 22.8 % (19-41); Mean Corp Hgb Conc 33.2 g/dL (32-36); Mean Corpuscular Hgb 29.6 pg (27.0-32.0); Mean Corpuscular Volume 89.2 fL (80-94); Mean Platelet Vol. 9.7 fl (6.2-12.0); Monocyte# 0.43 X10^3/uL; Monocyte% 6.7 % (0-10); NRBC Flagged by Analyzer 0 % (0-5); Neutrophil # 4.37 X10^3/uL (2.7-7.7); Neutrophil % 67.8 % (47-70); Platelet Count 171 K/mm3 (150-450); RBC Distribution Width CV 13.5 % (11.6-14.6); RBC Distribution Width SD 43.8 fl (35.1-43.9); Red Blood Count 5.37 M/mm3 (4.6-6.2); White Blood Count 6.4 K/mm3 (4.4-11.0)
[2019-10-05 07:54] LABS: Anion Gap 2 (5-15); BUN 9 mg/dL (7-18); BUN/Creat Ratio 8.7 RATIO (10-20); Calcium,Total 8.6 mg/dL (8.5-10.1); Chloride 108 mmol/L (98-107); Creatinine, Serum 1.04 mg/dL (0.70-1.30); EST Glomerular Filtration Rate 75 mL/min (>60); Est Glom Filt Rate - Afr Amer 91 mL/min (>60); Estimated Creatinine Clearance 67.98 ml/min; Glucose 115 mg/dL (74-106); Potassium 3.5 mmol/L (3.5-5.1); Sodium Level 143 mmol/L (136-145)
[2019-10-05 08:12] LABS: Bacteria 0 SEEN /hpf (None Seen); Mucous, Urine 0 SEEN /hpf (<or=2+); Squamous Epithelial Cells - UA 0 SEEN /hpf (0-5)
[2019-10-05 08:18] LABS: Color, Urine Yellow (Yellow); Glucose, Dipstick Normal (Normal); Ketone-Dipstick Negative (Negative); Leukocyte Esterase-Dipstick 25 /ul (Negative); Nitrite-Dipstick Negative (Negative); Occult Blood-Urine 10 /ul (Negative); Protein-Dipstick Negative (Negative); Specific Gravity, Urine 1.025 (1.002-1.030); Urine Bilirubin Dipstick Negative (Negative); Urine Clarity Clear (Clear); Urine Urobilinogen Normal (Normal)
[2019-10-05 08:24] LABS: Red Blood Cells-Urine 0-5 SEEN /hpf (0-5); White Blood Cells 0-5 SEEN /hpf (0-5)
--- NOTE | 2019-10-05 09:03 | CT_ITS ---
STUDY: CT ABDOMEN AND PELVIS WITHOUT CONTRAST REASON FOR EXAM: Male, 69 years old. Left flank pain RADIATION DOSAGE (If Supplied By Facility): CTDIvol = ( 8.76 ) mGy, DLP = ( 474.74 ) mGycm TECHNIQUE: Transaxial images were obtained from the dome of the diaphragm to the symphysis pubis without oral contrast, and without intravenous contrast. Sagittal and coronal images were reconstructed. Individualized dose optimization techniques were used for this CT. COMPARISON: CT abdomen and pelvis 01/30/2018. FINDINGS: Lack of intravenous contrast limits evaluation of abdominal and pelvic organs. There is left lower lobe consolidation similar to prior exam which may represent focal atelectasis. The lung bases are otherwise clear. The visualized portions of the heart are within normal limits. Normal liver. There are surgical clips in the gallbladder fossa consistent with a prior cholecystectomy. Normal spleen. Normal pancreas. Normal bilateral adrenal glands. Normal right kidney. There is a 2.2 x 2.1 cm left renal upper pole cyst. No hydronephrosis or renal stones Normal visualized stomach. Normal small intestine. There is a rectosigmoid anastomosis. There is no bowel wall thickening or obstruction. There are surgical clips in the region of the appendix consistent with a prior appendectomy. Normal abdominal aorta. Normal inferior vena cava. Normal retroperitoneum. Normal urinary bladder. There is enlargement of the prostate gland. Normal abdominal wall. There are diffuse degenerative changes of the visualized lumbar spine. There is mild levoscoliosis of the lumbar spine. CT/Abdomen/Pelvis without Cont IMPRESSION: No acute abdominal or pelvic pathology. No hydronephrosis or renal stone. Electronically Signed: Dale Nicole, at 10:02 EST Tel , Service support ,
[2019-10-05 10:18] VITALS: BP 138/80; PULSE 80; RESP 18; O2SAT 96
[2019-10-05 10:38] VITALS: BP 117/62; PULSE 72; RESP 15; O2SAT 98
== END 2019-10-05 10:39 | disposition home or self-care (01) ==
PROVIDERS: Emergency Provider Emergency Medicine; Family Provider Family Medicine; PCP Family Medicine
DX: R10.32 Left lower quadrant pain (principal); I10 Essential (primary) hypertension
CPT/HCPCS: 74176; 80048; 81001; 85025; 99283; A4216

== ENCOUNTER → 2019-10-16 08:34 | Outpatient (CLI) | payer MEDICARE, SELFPAY ==
[2019-10-16 07:58] VITALS: BMI 29.5
[2019-10-16 09:09] LABS: Erythrocyte Sedimentation Rate 9 mm/hr (0-20)
[2019-10-16 09:15] LABS: AST(SGOT) 13 U/L (15-37); Alanine Aminotransfer ALT/SGPT 25 U/L (16-61); Albumin, Serum 3.4 g/dL (3.2-5.0); Alkaline Phosphatase 78 U/L (45-117); Bilirubin, Direct 0.14 mg/dL (0.00-0.30); Globulin 3.9 g/dL (2.2-4.2); Lipase 114 U/L (73-393); Protein, Total 7.3 g/dL (6.4-8.2)
== END ==
PROVIDERS: Family Provider Family Medicine; PCP Family Medicine; Referring Provider Surgery; Visit Provider Surgery
DX: R10.32 Left lower quadrant pain (principal); Z12.5 Encounter for screening for malignant neoplasm of prostate
CPT/HCPCS: 36415; 80076; 83690; 84153; 85652; G0103

== ENCOUNTER 2019-10-19 05:15 | Day surgery (SDC) | payer MEDICARE, SELFPAY ==
[2019-10-16 07:58] VITALS: BMI 29.5
--- NOTE | 2019-10-16 09:51 | HP_ITS ---
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 Required: No Is patient in pain?: No Allergies lisinopril Allergy (Verified 10/16/19 07:57) Angioedema Medications aspirin 81 mg tablet,delayed release 81 mg PO DAILY 01/21/18 [History Confirmed 10/05/19] fluticasone propionate 50 mcg/actuation nasal spray,suspension 2 spray INTRANASAL QDAY 01/21/18 [History Confirmed 10/05/19] methylcellulose (laxative) 1,000 mg PO DAILY g 11/14/18 [History Confirmed 10/05/19] mineral oil 15 ml PO DAILY 11/14/18 [History Confirmed 10/05/19] Naproxen [Naprosyn] 500 mg PO BID #14 tab 03/15/19 [Rx Confirmed 10/05/19] Amlodipine Besylate 5 mg PO DAILY 10/05/19 [History Confirmed 10/05/19] PFSH Medical History Hemorrhoids (Acute) Chest pain (Acute) Hypertension (Chronic) Surgical History Hx of biopsy (Acute) S/P hemorrhoidectomy (Acute) H/O colonoscopy (Acute) History of inguinal hernia repair (Acute) History of colon surgery (Acute) S/P laparoscopic cholecystectomy (Acute) Family History Mother Cancer Social History (Updated 10/16/19 @ 09:51 by Nilay Chino MD) Smoking Status: Never smoker alcohol intake: never substance use type: does not use HPI HPI HPI: MEHRAN HALE, is a 69 M who presents to the office today for HPI HPI Surgical H&P: Yes HPI: MEHRAN HALE, is a 69 M who presents to the office today for surgical consultation regarding a left lower quadrant left midabdomen and left flank pain. Now for about 5 weeks the patient has had problems with left lower quadrant left midabdomen left flank pain. He thought that it felt similar to previous histories of diverticulitis. It is of note that I have previously assisted him April 15, 2012 with a laparoscopic sigmoid colectomy for recurrent diverticulitis. A 16 cm section of the sigmoid colon was removed and mobilization of the splenic flexure was performed. His last endoscopy would have been at that time as well. An appendectomy was performed at that time. No malignancy was identified. I have also previously assisted him with bilateral inguinal hernia repairs. With the onset of the pain he thought he had diverticulitis. Dr. Sanjay Farmer placed him on what sounds like ciprofloxacin and metronidazole. The patient took that for a week but because of the poor taste in his mouth and diarrhea he stopped it. He continues to have pain however it is improving. Because of the discomfort he went to the emergency room on October 05, 2019. He was evaluated by Dr. Cooper. At that time his CBC showed a normal white count of 6.4 with a hemoglobin 15.9 hematocrit 47.9 platelet count 171,000 with a completely normal shift. BUN and creatinine were normal. A noncontrasted CT was obtained which was not remarkable. The patient states that he can feel a knot in the left lower quadrant. His bowel habits have slowly been returning to normal. He has not noticed any bright red blood per rectum or melena. He has had some slight constipation. Of separate note is that the patient just within the last day or 2 developed some adenopathy of the left mid neck and supraclavicular area. He denies any sinus problems or nasal congestion ROS General General: No weight change, appetite, fatigue, colon cancer, breast cancer or weakness HEENT HEENT: Yes swollen glands; no difficulty swallowing, eye injury, eye surgery or hoarseness Endo Endocrine: No thyroid disease, diabetes mellitus, thyroid cancer, Hair loss, heat intolerance or cold intolerance Skin Skin: No rash or changing moles Breast Breast: No left breast lump, right breast lump, nipple discharge, breast pain, abnormal mammogram, abnormal US or breast enlargement Musc Musculoskeletal: No back problems, arthritis, rheumatoid arthritis, gout or joint pain Cardio Cardiovascular: Yes atrial fibrillation; no murmur, pacemaker, heart disease, high blood pressure, heart attack, heart stent, palpitations, shortness of breat with exertion or chest pain Psych Psychiatric: No depression, anxiety or hearing voices Resp Respiratory: No shortness of breath, No sleep apnea, No cough, No COPD, No asthma, No emphysema, No wheezing Gastro Gastrointestinal: Yes abdominal pain, No nausea or vomiting, No diarrhea, No constipation, No blood in stool, No acid reflux, No hemorrhoids, No ulcers, No gallbladder problem, No black,tarry stools Luis Daniel Hematologic: No blood thinners, No blood disorders, No bleeding, No anemia, No blood clots Neuro Neurologic: No system reviewed and no additional complaints, except as docu, No as per HPI, No abnormal walking, No abnormal hearing, No abnormal movements, No abnormal speech, No behavioral changes, No burning sensations, No confusion, No seizure-like activity, No unsteadiness, No dizziness, No localized weakness, No frequent falls, No headache(s), No lack of coordination, No loss of vision, No memory loss, No numbness, No other visual disturbances, No radiating pain, No restless legs, No sensory deficit, No fainting, No tingling, No tremor(s), No weakness, No other Exam Const General: cooperative, healthy appearing, comfortable, anxious Nutritional Appearance: average body habitus Orientation: alert, awake, oriented x3 HENMT Other: Neck is supple, rubbery 1.5 cm lymph node left mid neck nontender no erythema Eyes General: appearance normal, both eyes and all related structures Chest Chest palpation & inspection: normal inspection of the chest Breast Palpation: No nipple discharge Resp Effort & Inspection: normal respiratory effort Auscultation: clear to auscultation bilaterally Cardio Rate: regular rate Rhythm: regular rhythm Heart Sounds: no murmurs GI Inspection: normal to inspection Palpation: soft, no hepatosplenomegaly Other: Hyperactive bowel sounds, no tinkles or rushes Other: Well-healed bilateral groin incisions, no palpable hernias. Not the site of the patient's knot-like feeling Skin Other: The left flank does not demonstrate any rash or vesicular lesion Neuro Cognition: normal cognition Extrem General: no calf tenderness bilaterally Psych Affect: anxious affect Assessment & Plan Problems 1. Left lower quadrant abdominal pain R10.32 Plan 69-year-old gentleman with left midabdomen left lower quadrant left flank pain of undetermined etiology. Certainly by his history he correlates the discomfort similar to remote bouts of diverticulitis prior to his laparoscopic sigmoid colectomy. Imaging without oral contrast unfortunate does not demonstrate any signs that would correlate with that. He was placed on a appropriate course of antibiotics nearly 5 weeks ago and although the patient is improving he still has a sense that there is a knot in the left lower quadrant. On clinical examination I cannot detect any mass or hernia or tenderness. I recommend we obtain some liver function tests and lipase for the potential possible tail of the pancreas pancreatitis though not visualized on CT. Recommend that we obtain an ESR looking for potential source of residual inflammation. The patient states he is due for screening PSA. I have proposed with the patient a colonoscopy with possible biopsy or polypectomy as indicated. Very careful inspection of the colon will be pursued and if need be biopsies obtained. At this point with the patient now 5 weeks plus into this I do not think that a repeat CT scan with oral contrast at this moment is indicated. The patient seems to be slowly clinically improved. I am wondering whether this not like sensation that he describes which she does admit has been there for multiple years. He may have had an episode of diverticulitis that resolved with the clear liquid diet antibiotics and bowel rest. I appreciate the opportunity of assisting with her surgical care and we will try to assist with a diagnosis. His most recent colonoscopy was been prior to his laparoscopic sigmoid colectomy of April 2012 CC: Dr. Abdoulaye Chino M.D., F.A.C.S. Orders Orders: Colonoscopy Today R10.32 Lipase Today R10.32 Liver Profile Today R10.32 Erythrocyte Sed Rate Today R10.32 PSA Serial Monitor Today R10.32 Coding Level of Care Code Off vis,new,level 4 Diagnoses Left lower quadrant abdominal pain R10.32 ??Abdominal location: left lower quadrant 10/16/19 0951 <Electronically signed by Nilay rucker MD> Date _ Nilay Chino MD I have re-examined the patient. There are no clinical changes since date of exam.
[2019-10-19] VITALS (9 sets, daily range): BP systolic 84–154; BP diastolic 65–103; PULSE 82–96; RESP 16; TEMP 36.2–36.4; O2SAT 91–100; BMI 28.2
--- NOTE | 2019-10-19 | COLBX_PTH ---
PATIENT: MEHRAN HALE LOC: EN U#:[id number] AGE/SX: 69/M ROOM: RE10/19/[address]: Dr. Nilay Chino MD : 1950 BED: DIS: 10/19/2019 SPEC #: [id number] RECD: 10/19/19 07:24 STATUS: PEDRO JONH #: [id number] MARIE: 10/19/19 00:[address]: Nilay Chino DEPT: SURGICAL PATHOLOGY RECD BY: Herb Iverson ENTERED: 10/19/19 07:58 SP TYPE: COLON BX RAEGAN DR: Dr. Abdoulaye Barber MD Tissues: A - COLON BIOPSY B - Sigmoid colon biopsy Procedures: Surgery Specimen Level IV HEADER OPERATION: Colonoscopy (MOD) PRE-OP DIAGNOSIS: LLQ pain, change in bowel habits TISSUE SUBMITTED: A - Random colon biopsy, B - Polyp vs granuloma tissue at anastomosis rectosigmoid MICROSCOPIC DIAGNOSIS A. Colon, random biopsy: Fragments of colonic mucosa, no pathologic diagnosis. B. Rectosigmoid polyp, biopsy: Fragments of colonic mucosa with granulation tissue reaction. Negative for adenomatous changes. TOMAS:jessica 10/20/19 MICROSCOPIC DESCRIPTION Slides are reviewed. GROSS DESCRIPTION A - Received in fixative is one container labeled with the patient's name and designated random colon biopsy. The specimen consists of multiple irregular fragments of light garay soft tissue that in aggregate measure 1.5 x 0.6 x 0.1 cm. The specimen is totally submitted in one cassette. B - Received in fixative is one container labeled with the patient's name and designated rectosigmoid polyp. The specimen consists of multiple irregular fragments of light garay soft tissue that in aggregate measure 0.6 x 0.5 x 0.1 cm. The specimen is totally submitted in one cassette. / AM:jessica 10/19/19 TC:5 CPT: 75465 x2
[2019-10-19] MEDS: Lactated Ringers 1,000 ML 100 ML IV (06:17)
--- NOTE | 2019-10-19 06:57 | OP.COLON_ITS ---
Patient Name: Trell Merida Procedure Date: 10/19/2019 5:57 AM Date of : 1950 Age: 69 Procedure: Colonoscopy Indications: Abdominal pain in the left upper quadrant Providers: Nilay Chino MD Referring MD: Abdoulaye Barber Medicines: Midazolam 4.5 mg IV, Meperidine 100 mg IV Patient Profile: Last Colonoscopy: more than 3 years ago. Complications: No immediate complications. Procedure: Pre-Anesthesia Assessment: - Prior to the procedure, a History and Physical was performed, and patient medications and allergies were reviewed. The patient's tolerance of previous anesthesia was also reviewed. The risks and benefits of the procedure and the sedation options and risks were discussed with the patient. All questions were answered, and informed consent was obtained. Prior Anticoagulants: The patient has taken no previous anticoagulant or antiplatelet agents. ASA Grade Assessment: II - A patient with mild systemic disease. After reviewing the risks and benefits, the patient was deemed in satisfactory condition to undergo the procedure. After I obtained informed consent, the scope was passed under direct vision. Throughout the procedure, the patient's blood pressure, pulse, and oxygen saturations were monitored continuously. The pediatric colonoscope was introduced through the anus and advanced to the cecum, identified by appendiceal orifice and ileocecal valve. The colonoscopy was performed without difficulty. The patient tolerated the procedure well. The quality of the bowel preparation was good. The ileocecal valve and the appendiceal orifice were photographed. Moderate Sedation: Moderate (conscious) sedation was personally administered by the endoscopist. The following parameters were monitored: oxygen saturation, heart rate, blood pressure, and response to care. Total physician intraservice time was 15 minutes. Scope In: 6:34:53 AM Scope Withdrawal Time 0 hours 9 minutes 25 seconds Scope Out: 6:48:33 AM Total Procedure Duration Time 0 hours 13 minutes 40 seconds Findings: The digital rectal exam findings include non-thrombosed external hemorrhoids, non-thrombosed internal hemorrhoids, internal hemorrhoids that prolapse with straining, but spontaneously regress to the resting position (Grade II) and enlarged prostate. A 7 mm polyp was found in the recto-sigmoid colon. The polyp was sessile. The polyp was removed with a hot snare. Resection and retrieval were complete. Multiple diverticula were found in the entire colon. There was evidence of a prior end-to-end colo-colonic anastomosis in the recto-sigmoid colon. This was patent. Random colonic biopsies obtained for possible microcytic colitis Impression: - Non-thrombosed external hemorrhoids, non-thrombosed internal hemorrhoids, internal hemorrhoids that prolapse with straining, but spontaneously regress to the resting position (Grade II) and enlarged prostate found on digital rectal exam. - One 7 mm polyp at the recto-sigmoid colon, removed with a hot snare. Resected and retrieved. Possible granuloma related to anastomosis - Diverticulosis in the entire examined colon. - Patent end-to-end colo-colonic anastomosis. Random biopsies pending Recommendation: - Discharge patient to home. - Resume previous diet. - Continue present medications. - Use Prilosec (omeprazole) 40 mg PO daily as patient is having left mid abdomen and upper quadrant and flank pain. High anxiety, possible peptic disease.. - Repeat colonoscopy in 5 years for surveillance based on pathology results. - Telephone my office for pathology results in 1 week. Procedure Code(s): --- Professional --- 69592, Colonoscopy, flexible; with removal of tumor(s), polyp(s), or other lesion(s) by snare technique 86470, 59, Moderate sedation services provided by the same physician or other qualified health animal care specialist performing the diagnostic or therapeutic service that the sedation supports, requiring the presence of an independent trained observer to assist in the monitoring of the patient's level of consciousness and physiological status; initial 15 minutes of intraservice time, patient age 5 years or older Diagnosis Code(s): --- Professional --- D12.7, Benign neoplasm of rectosigmoid junction K64.1, Second degree hemorrhoids K64.4, Residual hemorrhoidal skin tags Z98.0, Intestinal bypass and anastomosis status R10.12, Left upper quadrant pain N40.0, Benign prostatic hyperplasia without lower urinary tract symptoms K57.30, Diverticulosis of large intestine without perforation or abscess without bleeding CPT copyright 2017 [employer]. All rights reserved. The codes documented in this report are preliminary and upon clerical supervisor review may be revised to meet current compliance requirements. Nilay Chino MD 10/19/2019 6:56:23 AM This report has been signed electronically. Number of Addenda: 0 Note Initiated On: 10/19/2019 5:57 AM
== END 2019-10-19 08:16 | disposition home or self-care (01) ==
LOC: EN 05:16 → AC 05:17
PROVIDERS: Family Provider Family Medicine; PCP Family Medicine; Referring Provider Family Medicine; Visit Provider Surgery
PROC: 0DJD8ZZ Inspection of Lower Intestinal Tract, Via Natural or Artificial Opening Endoscopic (ICD-10-PCS; CPT 45378; principal; 2019-10-19 06:25)
DX: K63.5 Polyp of colon (principal); K64.4 Residual hemorrhoidal skin tags; K64.1 Second degree hemorrhoids; K57.30 Diverticulosis of large intestine without perforation or abscess without bleeding; N40.0 Benign prostatic hyperplasia without lower urinary tract symptoms; Z98.0 Intestinal bypass and anastomosis status; I10 Essential (primary) hypertension; Z90.49 Acquired absence of other specified parts of digestive tract; Z79.82 Long term (current) use of aspirin; Z79.899 Other long term (current) drug therapy
CPT/HCPCS: 45385; 88305; 99152; 99153; J7120

== ENCOUNTER → 2020-08-23 14:06 | Outpatient (CLI) | payer MEDICARE, SELFPAY ==
[2020-04-14 08:19] VITALS: BMI 28.2
== END ==
PROVIDERS: PCP Family Medicine; Referring Provider Nurse Practitioner Adult Health; Visit Provider Nurse Practitioner Adult Health
DX: R31.9 Hematuria, unspecified (principal)
CPT/HCPCS: 87086

== ENCOUNTER 2020-10-25 12:20 | Emergency (ER) | payer MEDICARE, SELFPAY ==
[2020-04-14 08:19] VITALS: BMI 28.2
[2020-10-25 12:20] VITALS: BP 153/98; PULSE 98; RESP 16; TEMP 36.6; O2SAT 98; BMI 29.5
--- NOTE | 2020-10-25 12:47 | EKG12_ITS ---
Test Reason : CP Blood Pressure : / mmHG Vent. Rate : 089 BPM Atrial Rate : 089 BPM P-R Int : 114 ms QRS Dur : 102 ms QT Int : 364 ms P-R-T Axes : 067 011 051 degrees QTc Int : 442 ms Normal sinus rhythm Normal ECG Confirmed by MOISES MOONEY, DAVE ([id number]), food editor LIZZY JOHNSON ([id number]) on 10/27/2020 11:29:39 AM Referred By: EVAN Confirmed By:DAVE DE LEON MD
[2020-10-25 12:58] LABS: Absolute Lymphocyte Count 1.47 X10^3/uL (0.83-4.51); Absolute Neutrophil Count 4.5 X10^3/uL (2.0-7.7); Basophil# 0.03 X10^3/uL; Basophil% 0.5 % (0-1); Eosinophil# 0.15 X10^3/uL; Eosinophils% 2.3 % (0-5); Hematocrit 48.9 % (40-54); Hemoglobin 16.3 g/dL (13.0-16.5); Lymphocyte # 1.47 X10^3/ul (4.0); Lymphocyte % 22.1 % (19-41); Mean Corp Hgb Conc 33.3 g/dL (32-36); Mean Corpuscular Hgb 29.7 pg (27.0-32.0); Mean Corpuscular Volume 89.1 fL (80-94); Mean Platelet Vol. 9.9 fl (6.2-12.0); Monocyte# 0.47 X10^3/uL; Monocyte% 7.1 % (0-10); NRBC Flagged by Analyzer 0 % (0-5); Neutrophil # 4.51 X10^3/uL (2.7-7.7); Neutrophil % 67.8 % (47-70); Platelet Count 196 K/mm3 (150-450); RBC Distribution Width CV 13.1 % (11.6-14.6); RBC Distribution Width SD 42.9 fl (35.1-43.9); Red Blood Count 5.49 M/mm3 (4.6-6.2); White Blood Count 6.6 K/mm3 (4.4-11.0)
--- NOTE | 2020-10-25 12:58 | ED.VIS.GEN ---
History of Present Illness Chief Complaint: Chest Pain Informant: Patient Narrative: 70-year-old male with a history of hypertension states for the past 2 weeks has had a pain left upper chest into left shoulder region. He states it is a sharp ache. Nothing seems to make it better or worse. He reports that he was waiting to see if it would resolve because he felt that it was a muscle. He states that he is short of breath when he carries things up stairs but that is unchanged has been going on for years. No prior heart issues that he is aware of. - Past Medical History (1) History of diverticulitis Status: Chronic (2) Hypertension Status: Chronic Past Medical History - Allergies and Home Meds Allergies/Adverse Reactions: Allergies lisinopril Allergy (Verified 10/25/20 12:23) Angioedema Primary Care Physician: Abduolaye Barber MD [Primary Care Provider] - Surgical History: appendectomy, cholecystectomy, herniorrhaphy, - - Colon resection secondary to particular disease Smoking Status: Former smoker - Quit x40 years ago Drugs: None - Family History Maternal Family History: Family History (Last Reviewed 04/14/20 @ 08:09 by Ange Olmedo) Mother Cancer Family History: Reports: Cancer Paternal Family History: Family History (Last Reviewed 04/14/20 @ 08:09 by Ange Olmedo) Mother Cancer Family History: Reports: No pertinent history Review of Systems General: Denies: Chills, Fever, Sweats Eyes: Denies: Visual changes - bilaterally, Diplopia ENT: Denies: Rhinorrhea, Sore throat Cardiovascular: Reports: Chest pain. Denies: Palpitations Respiratory: Denies: Dyspnea, Cough, Dyspnea on exertion Gastrointestinal: Denies: Abdominal pain, Nausea, Vomiting, Diarrhea, Melena, Hematochezia Genitourinary: Denies: Dysuria, Hematuria, Frequency Musculoskeletal: Reports: Extremity Pain. Denies: Back pain Skin: Denies: Rash, Wounds Neurological: Denies: Headache, Weakness, Numbness Physical Exam Vital Signs/Narrative: Vital Signs Temp Pulse Resp BP Pulse Ox 10/25/20 12:20 97.8 F 98 16 153/98 H 98 Inital Vital Signs reviewed: Yes General: Well nourished, Well developed, No Acute Distress Head: Normocephalic, Atraumatic Eyes: Perrl, EOMI ENT: Moist mucous membranes, No rhinorrhea Neck: Supple, Nontender Cardiovascular: Regular rate, Regular rhythm, No murmurs Respiratory: No distress, CTA bilaterally, Chest nontender Abdomen: Soft, Nontender, Nondistended, Normal bowel sounds Back: Nontender, Normal Inspection Extremities: Nontender, No edema Skin: Normal color, No rash Neurological: Alert, Oriented x3, Cranial nerves II-XII grossly intact, Normal Strength, Normal Sensation Psychological: Normal affect, Normal Mood Diagnostic/Tx/Re-eval Laboratory Last Values WBC 6.6 K/mm3 (4.4-11.0) 10/25/20 12:35 RBC 5.49 M/mm3 (4.6-6.2) 10/25/20 12:35 Hgb 16.3 g/dL (13.0-16.5) 10/25/20 12:35 Hct 48.9 % (40-54) 10/25/20 12:35 MCV 89.1 fL (80-94) 10/25/20 12:35 MCH 29.7 pg (27.0-32.0) 10/25/20 12:35 MCHC 33.3 g/dL (32-36) 10/25/20 12:35 RDW Std Deviation 42.9 fl (35.1-43.9) 10/25/20 12:35 RDW Coeff of Adrian 13.1 % (11.6-14.6) 10/25/20 12:35 Plt Count 196 K/mm3 (150-450) 10/25/20 12:35 MPV 9.9 fl (6.2-12.0) 10/25/20 12:35 Immature Gran % (Auto) 0.200 % (0.0-0.9) 10/25/20 12:35 Neut % (Auto) 67.8 % (47-70) 10/25/20 12:35 Lymph % (Auto) 22.1 % (19-41) 10/25/20 12:35 [place] % (Auto) 7.1 % (0-10) 10/25/20 12:35 Eos % (Auto) 2.3 % (0-5) 10/25/20 12:35 Baso % (Auto) 0.5 % (0-1) 10/25/20 12:35 Absolute Neuts (auto) 4.5 X10^3/uL (2.0-7.7) 10/25/20 12:35 Absolute Lymphs (auto) 1.47 X10^3/uL (0.83-4.51) 10/25/20 12:35 Nucleated RBC % 0 % (0-5) 10/25/20 12:35 Sodium 139 mmol/L (136-145) 10/25/20 12:35 Potassium 3.8 mmol/L (3.5-5.1) 10/25/20 12:35 Chloride 104 mmol/L (98-107) 10/25/20 12:35 Carbon Dioxide 30.0 mmol/L (21.0-32.0) 10/25/20 12:35 Anion Gap 5 (5-15) 10/25/20 12:35 BUN 13 mg/dL (7-18) 10/25/20 12:35 Creatinine 0.96 mg/dL (0.70-1.30) 10/25/20 12:35 Estim Creat Clear Calc 72.62 ml/min 10/25/20 12:35 Est GFR (MDRD) Af Amer 100 mL/min (>60) 10/25/20 12:35 Est GFR (MDRD) Non-Af 83 mL/min (>60) 10/25/20 12:35 BUN/Creatinine Ratio 13.6 RATIO (10-20) 10/25/20 12:35 Glucose 91 mg/dL (74-106) 10/25/20 12:35 Calcium 8.9 mg/dL (8.5-10.1) 10/25/20 12:35 Troponin I < 0.015 ng/mL (<0.045) 10/25/20 12:35 - Rhythm Strip Ectopy: None - EKG demonstrates a normal sinus rhythm at a rate of 89. There are no concerning features of ACS or ectopy. - Medical Decision Making My impression of the single view chest x-ray is no acute process. Troponin is negative. This represents 2 weeks of symptoms. Based on his story and his heart score is low I think is reasonable to discharge the patient home. He is to call his doctor to arrange outpatient stress testing return if worsening or concerns ED Disposition - Plan for ED Patient: Disposition: Home or Assisted Living Diagnosis: Chest pain Instructions: ED Pain, Acute, Uncertain Cause Referrals: Abdoulaye Barber MD [Primary Care Provider] - As soon as possible (call to discuss cardiac stress testing)
[2020-10-25 13:16] LABS: Anion Gap 5 (5-15); BUN 13 mg/dL (7-18); BUN/Creat Ratio 13.6 RATIO (10-20); Calcium,Total 8.9 mg/dL (8.5-10.1); Chloride 104 mmol/L (98-107); Creatinine, Serum 0.96 mg/dL (0.70-1.30); EST Glomerular Filtration Rate 83 mL/min (>60); Est Glom Filt Rate - Afr Amer 100 mL/min (>60); Estimated Creatinine Clearance 72.62 ml/min; Glucose 91 mg/dL (74-106); Potassium 3.8 mmol/L (3.5-5.1); Sodium Level 139 mmol/L (136-145)
--- NOTE | 2020-10-25 13:18 | RAD_ITS ---
STUDY: X-RAY CHEST REASON FOR EXAM: Male, 70 years old. CHEST PAIN, LEFT ARM PAIN X 2 WEEKS TECHNIQUE: Single AP portable view of the chest. COMPARISON: Comparison is made with prior study dated 01/23/2016. FINDINGS: EKG electrodes are seen. Stable elevation of the left hemidiaphragm with the stable pleural parenchymal changes at the left lung base. Normal size heart. Normal mediastinum and lisseth. Normal visualized pulmonary arteries. There is atherosclerotic calcification of the aortic arch with tortuosity. Normal visualized thoracic spine. Normal visualized ribs, clavicles, and shoulders. There is no demonstrated abnormality of the visualized soft tissue structures of the upper abdomen. RAD/Chest 1 View (Portable) IMPRESSION: Stable elevation of the left hemidiaphragm with stable pleural parenchymal changes at the left lung base. Electronically Signed: Mateo Minaya, at 13:55 EST , Service support ,
[2020-10-25 13:54] VITALS: BP 134/98; PULSE 76; RESP 17; O2SAT 98
== END 2020-10-25 14:09 | disposition home or self-care (01) ==
PROVIDERS: Emergency Provider Emergency Medicine; PCP Family Medicine
DX: R07.9 Chest pain, unspecified (principal); I10 Essential (primary) hypertension; Z87.19 Personal history of other diseases of the digestive system; Z79.899 Other long term (current) drug therapy; Z87.891 Personal history of nicotine dependence
CPT/HCPCS: 71045; 80048; 84484; 85025; 93005; 99284; A4216

== ENCOUNTER → 2021-04-10 08:33 | Outpatient (CLI) | payer MEDICARE, SELFPAY ==
[2021-04-10 08:01] VITALS: BMI 29.5
[2021-04-10 08:50] LABS: Absolute Lymphocyte Count 1.17 X10^3/uL (0.83-4.51); Absolute Neutrophil Count 4.1 X10^3/uL (2.0-7.7); Basophil# 0.02 X10^3/uL; Basophil% 0.4 % (0-1); Eosinophil# 0.07 X10^3/uL; Eosinophils% 1.2 % (0-5); Hematocrit 47.3 % (40-54); Hemoglobin 15.6 g/dL (13.0-16.5); Lymphocyte # 1.17 X10^3/ul (0.83-4.51); Lymphocyte % 20.7 % (19-41); Mean Corpuscular Hgb 30.1 pg (27.0-32.0); Mean Corpuscular Volume 91.3 fL (80-94); Mean Platelet Vol. 9.5 fl (6.2-12.0); Monocyte% 5.3 % (0-10); NRBC Flagged by Analyzer 0 % (0-5); Neutrophil # 4.09 X10^3/uL (2.7-7.7); Neutrophil % 72.2 % (47-70); Platelet Count 162 K/mm3 (150-450); RBC Distribution Width CV 14.2 % (11.6-14.6); RBC Distribution Width SD 47.7 fl (35.1-43.9); Red Blood Count 5.18 M/mm3 (4.6-6.2); White Blood Count 5.7 K/mm3 (4.4-11.0)
[2021-04-10 08:53] LABS: Erythrocyte Sedimentation Rate 8 mm/hr (0-20)
--- NOTE | 2021-04-10 16:37 | CT_ITS ---
INDICATION: ABDOMINAL PAIN EXAMINATION: CT Abdomen And Pelvis W/ Contrast Injection TECHNIQUE: Helically acquired images were obtained of the abdomen and pelvis after IV contrast. A radiation dose optimization technique was used for this scan. IV Contrast dosage and agent: Oral and amp;amp; IV Readi-CAT and amp;amp; 100mL Isovue-300 Oral contrast: yes. COMPARISON: 10/05/2019. FINDINGS: Visualized lung bases: Unremarkable Liver: Unremarkable Gallbladder: Status post cholecystectomy with evidence of reservoir effect. Spleen: Unremarkable Pancreas: Unremarkable Adrenal Glands: Unremarkable Kidneys: 2.7 cm simple cyst in left upper pole. Vasculature: Unremarkable GI Tract: Scattered diverticula throughout the colon without evidence of inflammation. The appendix is not visualized. Lymphadenopathy: None Peritoneum: No ascites. Bladder: Unremarkable Reproductive organs: The prostate is enlarged and there are radiation markers present. Bones/Soft tissues: There are diffuse degenerative changes of the spine. CT/Abdomen/Pelvis WITH Contrast IMPRESSION: No acute abnormalities in the abdomen or pelvis. Prostatomegaly. Correlate with PSA levels. Diverticulosis. Electronically Signed: Sanjay Brooks MD at 18:30 EDT Tel , Service support ,
== END ==
PROVIDERS: Physician Assistant; PCP Family Medicine; Referring Provider Surgery; Visit Provider Surgery
DX: R10.32 Left lower quadrant pain (principal)
CPT/HCPCS: 36415; 74177; 85025; 85652

== ENCOUNTER 2021-11-27 07:12 | Outpatient (CLI) | payer MEDICARE, SELFPAY ==
--- NOTE | 2021-11-27 07:14 | CT_ITS ---
STUDY: CT PELVIS WITH CONTRAST REASON FOR EXAM: Male, 71 years old. Right groin pain x 2 months. RADIATION DOSAGE (If Supplied By Facility): CTDIvol = ( 28.205 ) mGy, DLP = ( 1452.49 ) mGycm TECHNIQUE: Transaxial imaging of the pelvis was performed without oral contrast. Oral and amp; IV Readi-CAT and amp; 100mL Isovue-300 was administered intravenously. Individualized dose optimization techniques were used for this CT. COMPARISON: Comparison is made with prior study dated 04/10/2021. FINDINGS: The bladder is only partially distended with diffuse bladder wall thickening. The prostate is enlarged. It measures 4.7 cm x 4.8 cm. 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 There is enlargement of the bilateral seminal vesicles. Normal visualized small intestine. Normal visualized colon. There is no pelvic fluid. There is no pelvic lymphadenopathy or mass lesion. Normal visualized pelvic arteries. There is a left inguinal hernia containing fat. Normal osseous structures. CT/Pelvis WITH IV Contrast IMPRESSION: Small left inguinal hernia containing fat. Prostatic enlargement with indentation of the bladder base. Seminal vesicles are enlarged. 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 Bladder wall thickening. Electronically Signed: Mateo Minaya MD at 10:50 EST ,
[2021-11-27 07:56] LABS: CREATININE FINGERSTICK 0.9 mg/dL (0.70-1.30); EGFR FINGERSTICK > 60.0000 mL/min (>60)
== END 2021-11-27 23:59 | disposition home or self-care (01) ==
LOC: CT 07:13
PROVIDERS: PCP Family Medicine; Referring Provider Surgery; Visit Provider Surgery
DX: R10.31 Right lower quadrant pain (principal)
CPT/HCPCS: 72193; Q9967

== ENCOUNTER 2021-11-29 10:48 | Day surgery (SDC) | payer MEDICARE, SELFPAY ==
--- NOTE | 2021-11-28 09:29 | EKG12_ITS ---
Test Reason : PREOP Blood Pressure : / mmHG Vent. Rate : 098 BPM Atrial Rate : 098 BPM P-R Int : 126 ms QRS Dur : 102 ms QT Int : 334 ms P-R-T Axes : 073 014 035 degrees QTc Int : 426 ms Normal sinus rhythm Nonspecific T wave abnormality Confirmed by MOISES MOONEY, DAVE ([id number]), editorial assistant ELIA LUJAN ([id number]) on 11/29/2021 11:49:15 AM Referred By: Dakotah aSuceda Confirmed By:DAVE DE LEON MD
[2021-11-28 09:58] LABS: Hematocrit 47.2 % (40-54); Hemoglobin 15.6 g/dL (13.0-16.5); Mean Corp Hgb Conc 33.1 g/dL (32-36); Mean Corpuscular Hgb 30.1 pg (27.0-32.0); Mean Corpuscular Volume 91.1 fL (80-94); Mean Platelet Vol. 9.6 fl (6.2-12.0); Platelet Count 178 K/mm3 (150-450); RBC Distribution Width CV 13.7 % (11.6-14.6); RBC Distribution Width SD 46.5 fl (35.1-43.9); Red Blood Count 5.18 M/mm3 (4.6-6.2); White Blood Count 6.5 K/mm3 (4.4-11.0)
[2021-11-29] VITALS (13 sets, daily range): BP systolic 127–168; BP diastolic 76–107; PULSE 66–88; RESP 16–18; TEMP 36.1–36.8; O2SAT 94–100; BMI 29.0
[2021-11-29] MEDS: Lactated Ringers 1,000 ML 30 ML IV (11:39)
[2021-11-29] MEDS: Cefazolin 2 GM in 0.9% Normal Saline 100 ML IV (12:26)
--- NOTE | 2021-11-29 13:00 | PROS_PTH ---
PATIENT: MEHRAN HALE LOC: [facility] [place] U#:[id number] AGE/SX: 71/M ROOM: RE11/29/[address]: Dr. Dakotah Sauceda MD : 1950 BED: DIS: 11/30/2021 SPEC #: [id number] RECD: 11/29/21 15:11 STATUS: PEDRO BORJA #: [id number] MARIE: 11/29/21 13:[address]: Dakotah Sauceda DEPT: SURGICAL PATHOLOGY RECD BY: Lissy Bryan ENTERED: 11/30/21 07:37 SP TYPE: TURP OTHR DR: Dr. Abdoulaye Barber MD Tissues: Prostate, NOS Procedures: Surgery Specimen Level IV HEADER OPERATION: Cysto, TUR prostate, Olympus, litholapaxy of bladder stone PRE-OP DIAGNOSIS: BPH with lower urinary tract symptoms, calculus in bladder, frequency of micturition, dysuria TISSUE SUBMITTED: Prostate tissue MICROSCOPIC DIAGNOSIS Prostate tissue, TUR: Benign prostatic hyperplasia, glandular and stromal type. Focal mild chronic inflammation. TOMAS:jessica 12/01/2021 MICROSCOPIC DESCRIPTION Slides are reviewed. GROSS DESCRIPTION Received is one container labeled with the patient's name and designated prostate tissue. The specimen consists of multiple irregular fragments of pink-garay, rubbery, soft tissue that in aggregate weigh 12.1 gm and measure in aggregate 4.5 x 4.5 x 1 cm. Multiple metallic clips are also noted. Online Marketing Director tissue is submitted in ten cassettes. / TOMAS:jessica 11/30/2021 TC:5 CPT: 88563
--- NOTE | 2021-11-29 13:53 | HP.PCM_ITS ---
HPI - General HPI Narrative MEHRAN HALE, is a 71 M who presents for a TURP and removal of bladder stones COUNTS INCLUDE 234 BEDS AT THE [facility] Medical History (Updated 11/27/21 @ 09:49 by Elina Figueroa) Abdominal pain Anal pain Back pain Cancer Chest pain COVID Former smoker Hemorrhoids History of anal fissures History of diverticulitis History of irregular heartbeat History of stress test Hx of vertigo Hypertension Prostate disease Shortness of breath on exertion Wears dentures Wears glasses Home Medications methylcellulose (laxative) 1,000 mg PO DAILY g 11/14/18 [History Last Taken 12/13/18] amlodipine 5 mg PO DAILY 10/05/19 [History Last Taken 11/29/21] Diltiazem 2% ointment (compound) #1 ea 04/14/20 [Rx Last Taken Unknown] Diltiazem 2% ointment (compound) #1 ea 04/14/20 [Rx Last Taken Unknown] Hydrocortisone 2.5% / Lidocaine 5% ointment (cmpd) #1 ea 04/14/20 [Rx Last Taken Unknown] Hydrocortisone 2.5%/lidocaine 5% suppository (cmpd) #1 ea 04/14/20 [Rx Last Taken Unknown] meloxicam 15 mg tablet 15 mg PO PRN PRN 04/10/21 [History Last Taken Unknown] ciprofloxacin HCl [Cipro] 500 mg PO BID #10 tab 11/29/21 [Rx Last Taken Unknown] Allergy/AdvReac Type Severity Reaction Status Date / Time lisinopril Allergy Angioedema Verified 11/29/21 11:17 Family History Mother Cancer Surgical History (Updated 11/27/21 @ 09:42 by Elina Figueroa) H/O colonoscopy History of colon surgery History of inguinal hernia repair Hx of biopsy Hx of bladder repair surgery S/P hemorrhoidectomy S/P laparoscopic cholecystectomy Social History Smoking Status: Former smoker alcohol intake: never substance use type: does not use Vital Signs Vital Signs Vital Signs: 11/29/21 11:19 Temperature 98.2 F Temperature Source Temporal Pulse Rate 83 Respiratory Rate 16 Respiratory Pattern Normal Blood Pressure 168/94 H Blood Pressure Mean 118 Blood Pressure Source Monitor Blood Pressure Position Semi-Fowlers Blood Pressure Location Right Arm Pulse Ox 97 Oxygen Delivery Method Room Air Weight Weight: 89 kg Body Mass Index (BMI) 29.0 Results Lab / Micro Data Result Diagrams: 11/28/21 09:43 Micro: Microbiology 11/28/21 09:37 Interface Orders SARS-CoV-2 Antigen (Rapid) - Final
--- NOTE | 2021-11-29 13:54 | OP.PCM_ITS ---
Report of Operation Date of Procedure: 11/29/21 Pre-Operative Diagnosis: BPH and bladder stones Post-Operative Diagnosis: same Surgery/Procedure Performed:: turp and cystolithalopaxy Description of Surgical Findings:: In the preoperative setting I discussed with the patient how the surgery would be done with expect afterwards. We discussed how a prostate resection is done and we discussed the risk of the surgery including, bleeding, infection, retrograde ejaculation, changes with ejaculation or intercourse,. We discussed the possibility that the resection of the prostate may not alleviate his urinary symptoms. We discussed the small risk of developing scar tissue along the urethral channel and strictures. We also discussed the chance of the prostate could grow back and he may need further surgery or treatment in the future for prostate problems. Patient was taken back to the operating room, timeout procedure was performed, he was identified and marked and placed on the operating room table. He underwent general anesthesia. The urethra and genitals were prepped and draped in usual sterile fashion. Went into the bladder using a 24 [place] cystoscope. We used the laser bridge through the scope for continuous irrigation. Then using the scope the stone in the bladder was trapped against the back wall. The stone measured < 2,5cm in size. The stone was then removed and evacuated from the bladder. He was placed in dorsolithotomy position. Penis and testicles were prepped and draped in usual sterile fashion. Went into the bladder using the visual obturator with a resectoscope. Once inside the bladder identified the right and left ureteral orifice. I then identified the prostate and the anatomy of the prostate. I marked out the area of the sphincter and the verumontanum was identified. I then proceeded with the prostate resection first resected the median lobe. And then resected the right lobe of the prostate. Then to resect the left lobe of the prostate. I then resected the apical tissue of the prostate. This was a complete resection of all obstructive tissue to improve voiding and relieve obstruction. I then made sure that there was no injury to the sphincter or the verumontanum was still intact. At the end of the resection all the chips were Ellik out of the bladder. I then identified the left and right ureteral orifice and these were confirmed to be in good position and efflu crystal and not injured. The resectoscope was removed, a 22 [place] Citizen catheter was placed into the bladder on continuous irrigation. And the urine was fairly light pink color and draining normally. He was taken back to the PACU in good condition. Surgeon: Komal Type of Anesthesia: General Admit VTE Documentation VTE Present on Admission: No VTE Mechan Device Prophylaxis: SCD's VTE Pharm Prophylaxis ordered?: No
--- NOTE | 2021-11-29 13:54 | PCM.DC ---
Discharge Instructions Diet Discharge Diet: No restrictions Activity Discharge Activity: Return to Normal Activity and May Not Drive (while taking narcotic pain medications.) Dressing / Incision Call your doctor if you observe: Fever of 101 or Higher Follow Up Care Please Follow Up With: Dakotah Sauceda MD When: Call [phone] for an appointment Test Results: Test results from this visit will be discussed in further detail at your follow-up appointment, if applicable. Discharge Plan Admission Primary Reason for Your Visit: turp and removal bladder stone Attending Provider: Dakotah Sauceda Primary Care Provider: Abdoulaye Barber Discharge Orders/Prescriptions Prescriptions: New ciprofloxacin HCl [Cipro] 500 mg tablet 500 mg PO BID Qty: 10 RF: 0 Continued Citrucel Sugar Free powder 1,000 mg PO DAILY RF: 0 (DME) hydrocortisone suppository See Rx Instructions .ROUTE .MEDSUPPLY Qty: 1 RF: 0 (DME) diltiazem HCl ointment See Rx Instructions .ROUTE .MEDSUPPLY Qty: 1 RF: 0 (DME) hydrocortisone ointment See Rx Instructions .ROUTE .MEDSUPPLY Qty: 1 RF: 0 meloxicam 15 mg tablet 15 mg PO PRN PRN (Reason: Pain) RF: 0 amlodipine 5 MG tablet 5 mg PO DAILY RF: 0 Discontinued tamsulosin [Flomax] 0.4 mg Capsule 0.4 mg PO DAILY RF: 0 No Action (DME) diltiazem HCl ointment See Rx Instructions .ROUTE .MEDSUPPLY Qty: 1 RF: 0 Referrals / Follow Up: Dakotah Sauceda MD [STAFF PHYSICIAN] - Abdoulaye Barber MD [Primary Care Provider] - Disposition Disposition (needs filled in before D/C Order can be placed): Home, Self Care
[2021-11-29] MEDS: Meclizine HCl 25 MG Tablet PO (14:28)
[2021-11-29] MEDS: Scopolamine 1mg/72hr Patch 1 PATCH TD (18:48)
[2021-11-29] MEDS: Ondansetron 4 MG/2 ML Vial IV (19:56)
[2021-11-29] MEDS: Ciprofloxacin 500 MG Tablet PO (22:27)
[2021-11-30] VITALS: BP 117/78; PULSE 84; RESP 16; TEMP 36.8; O2SAT 96
[2021-11-30 03:31] VITALS: BP 114/77; PULSE 87; RESP 16; TEMP 37; O2SAT 96
--- NOTE | 2021-11-30 07:38 | PCM.PN.GU ---
Subjective Subjective DOING WELL S/P TURP Objective Data Objective Data Vital Signs: Vital Signs Temp Pulse Resp BP Pulse Ox 98.6 F 87 16 114/77 96 11/30/21 03:31 11/30/21 03:31 11/30/21 03:31 11/30/21 03:31 11/30/21 03:31 Oxygen Flow Rate (L/min) 2 Oxygen Delivery Method Room Air Weight: 89 kg Body Mass Index (BMI) 29.0 Intake & Output: Intake and Output for Last 24 Hours 11/28/21 11/29/21 11/30/21 23:59 23:59 23:59 Intake Total 110 / 110 Output Total 2225 / 2225 800 / 800 Balance -2115 / -2115 -800 / -800 Lab / Micro Data Result Diagrams: 11/28/21 09:43 Micro: Microbiology 11/28/21 09:37 Interface Orders SARS-CoV-2 Antigen (Rapid) - Final
[2021-11-30 08:20] VITALS: BP 122/80; PULSE 80; RESP 18; TEMP 36.9; O2SAT 96
[2021-11-30] MEDS: Ciprofloxacin 500 MG Tablet PO (08:22)
== END 2021-11-30 11:35 | disposition home or self-care (01) ==
LOC: SDC 10:53 → AC 13:51 → MS3 14:05
PROVIDERS: Anesthesiology; PCP Family Medicine; Referring Provider Urology; Visit Provider Urology
PROC: (CPT 52601; principal; 2021-11-29 12:50)
DX: N21.0 Calculus in bladder (principal); N40.0 Benign prostatic hyperplasia without lower urinary tract symptoms; I10 Essential (primary) hypertension; Z87.891 Personal history of nicotine dependence; Z86.16 Personal history of COVID-19; Z87.19 Personal history of other diseases of the digestive system; Z79.899 Other long term (current) drug therapy
CPT/HCPCS: 52601; 52317; 00910; 36415; 85027; 87426; 88305; 93005; C9803; J7120; J2405

== ENCOUNTER 2022-01-30 16:37 | Outpatient (CLI) | payer MEDICARE, SELFPAY ==
--- NOTE | 2022-01-30 16:38 | MRI_ITS ---
STUDY: MRI LUMBAR SPINE WITHOUT CONTRAST REASON FOR EXAM: Male, 71 years old. Pain TECHNIQUE: Standardized fat and water weighted pulse sequences were obtained in the sagittal and axial planes. COMPARISON: None FINDINGS: Normal lumbar lordosis. Minimal lumbar levoscoliosis. Normal conus medullaris. T11/12 through L5/S1 discs are degenerated. Mild degenerative spurring noted about the T11/12 disc space. T12-L1: Normal endplates. Large marginal osteophytes. No annular bulging or disc extrusion. Normal central canal and bilateral lateral recesses. Normal bilateral intervertebral neural foramina. L1-2: Normal endplates. Moderate disc space narrowing with marginal osteophytes. Mild flattening of the ventral aspect of the thecal sac by broad-based annular bulge which mildly narrows the inferior neural foramina. L2-3: Moderate disc space narrowing with large marginal osteophytes. Mild flattening of the ventral aspect of the thecal sac by broad-based annular bulging. Posterior annular fissure at this level. The inferior neural foramina are narrowed bilaterally at this level by the annular bulge and posterior lateral osteophytes, and with asymmetric encroachment upon the right neural foramen by asymmetric facet hypertrophy. L3-4: Minimal disc space narrowing with minimal endplate degenerative changes. Small-moderate marginal osteophytes. Mild flattening the ventral aspect of the thecal sac and narrowing of the inferior neural foramina at this level by broad-based annular bulging and posterior osteophytes. L4-5: Mild disc space narrowing with marginal osteophytes and minimal endplate degenerative changes. Mild flattening of the ventral aspect of the thecal sac and narrowing of the inferior neural foramina by broad-based annular bulging. There is minimal central disc protrusion at this level, mildly indenting the ventral aspect of the thecal sac. The lateral aspects of the thecal sac are effaced and the lateral recesses are moderately narrowed at this level by ligamentum flavum hypertrophy and facet hypertrophy. L5-S1: L5/S1 disc space is relatively preserved. No significant annular at this level. There is asymmetric narrowing of the left neural foramen at this level by asymmetric ligamentum flavum hypertrophy and asymmetric left-sided facet hypertrophy. Visualized upper sacrum is unremarkable. The psoas muscles are symmetric. Visualized abdominal aorta is normal in caliber. No endplate destruction or paraspinal soft tissue swelling is identified. No critical thecal sac stenosis is identified. The nerve roots within the cauda equina do not appear abnormally thickened or clumped. No abnormal epidural fluid collection is identified. MRI/Spine Lumbar (Routine) IMPRESSION: Multilevel degenerative disc disease and facet hypertrophy. Small central disc protrusion at the L4/5 level. No acute fracture. No critical thecal sac stenosis. Electronically Signed: Elvis Rojas MD at 1:17 EDT ,
== END 2022-01-30 23:59 | disposition home or self-care (01) ==
LOC: MRI 16:38
PROVIDERS: PCP Family Medicine; Visit Provider Orthopaedic Surgery
DX: M51.36 Other intervertebral disc degeneration, lumbar region (principal)
CPT/HCPCS: 72148

== ENCOUNTER 2022-12-05 18:51 | Emergency (ER) | payer MEDICARE, SELFPAY ==
[2022-12-05 18:52] VITALS: BP 165/92; PULSE 97; RESP 16; TEMP 36.2; O2SAT 97; BMI 28.3
--- NOTE | 2022-12-05 19:11 | EKG12_ITS ---
Test Reason : CP Blood Pressure : / mmHG Vent. Rate : 093 BPM Atrial Rate : 093 BPM P-R Int : 122 ms QRS Dur : 102 ms QT Int : 368 ms P-R-T Axes : 067 006 056 degrees QTc Int : 457 ms Normal sinus rhythm Normal ECG Confirmed by MOISES MOONEY, DAVE ([id number]), greeting card editor ELIA LUJAN ([id number]) on 12/07/2022 12:39:54 PM Referred By: PL Confirmed By:DAVE DE LEON MD
[2022-12-05 19:26] VITALS: RESP 17; O2SAT 94; O2SAT 99
--- NOTE | 2022-12-05 19:31 | RAD_ITS ---
STUDY: X-RAY CHEST REASON FOR EXAM: Male, 72 years old. Chest pain. TECHNIQUE: Single AP portable view of the chest. COMPARISON: October 25, 2020 FINDINGS: Stable elevated left hemidiaphragm with associated atelectasis. The lungs are otherwise clear. There is no demonstrated pleural abnormality. Normal size heart. Normal mediastinum and lisseth. Normal visualized pulmonary arteries. Normal visualized aortic arch and descending thoracic aorta. No osseous changes. There is no demonstrated abnormality of the visualized soft tissue structures of the upper abdomen. RAD/Chest 1 View (Portable) IMPRESSION: No acute cardiopulmonary disease or interval change. Electronically Signed: Orestes Zamudio DO at 19:44 EST ,
[2022-12-05 19:35] LABS: Absolute Lymphocyte Count 2.18 X10^3/uL (0.83-4.51); Absolute Neutrophil Count 6.5 X10^3/uL (2.0-7.7); Basophil# 0.03 X10^3/uL; Basophil% 0.3 % (0-1); Eosinophil# 0.09 X10^3/uL; Hemoglobin 15.9 g/dL (13.0-16.5); Lymphocyte # 2.18 X10^3/ul (0.83-4.51); Lymphocyte % 23.6 % (19-41); Mean Corp Hgb Conc 33.1 g/dL (32-36); Mean Corpuscular Hgb 29.7 pg (27.0-32.0); Mean Corpuscular Volume 89.6 fL (80-94); Mean Platelet Vol. 9.6 fl (6.2-12.0); Monocyte% 4.3 % (0-10); NRBC Flagged by Analyzer 0 % (0-5); Neutrophil # 6.52 X10^3/uL (2.7-7.7); Neutrophil % 70.5 % (47-70); Platelet Count 203 K/mm3 (150-450); RBC Distribution Width CV 13.8 % (11.6-14.6); RBC Distribution Width SD 45.1 fl (35.1-43.9); Red Blood Count 5.36 M/mm3 (4.6-6.2); White Blood Count 9.3 K/mm3 (4.4-11.0)
[2022-12-05 20:03] LABS: Troponin-I HS 3 pg/mL (3.0-78.0)
[2022-12-05 20:04] LABS: Anion Gap 5 (5-15); BUN 18 mg/dL (7-18); BUN/Creat Ratio 18.3 RATIO (10-20); Calcium,Total 8.9 mg/dL (8.5-10.1); Chloride 105 mmol/L (98-107); Creatinine, Serum 0.98 mg/dL (0.70-1.30); EST Glomerular Filtration Rate 80 mL/min (>60); Est Glom Filt Rate - Afr Amer 97 mL/min (>60); Estimated Creatinine Clearance 69.14 ml/min; Glucose 116 mg/dL (74-106); Potassium 5.4 mmol/L (3.5-5.1); Sodium Level 139 mmol/L (136-145)
--- NOTE | 2022-12-05 20:14 | EDS_ITS ---
HPI History of Present Illness Chief Complaint: Chest Pain Narrative Narrative: 72-year-old male, who denies significant past medical history except hypertension, presents with chest pain that he has been having intermittently for the last 3 days. He states his symptoms began on Saturday where he had very brief, fleeting episodes, few times on Saturday. Saturday, he had them again. However, today, since 4 PM, 4 hours ago, he must of had 10-12 episodes of very sharp, stabbing, fleeting pain in his left chest. He denies any fevers or chills. No nausea or vomiting. No diaphoresis. No pain on exertion. He cannot say when the pain will come and go, but he does state that he has not had them in the last 30 to 45 minutes. He denies any leg swelling. No history of coronary artery disease. Non-smoker. Once again, no exacerbating or alleviating factors. [facility] Medical History Abdominal pain Anal pain Back pain Cancer Chest pain COVID Former smoker Hemorrhoids History of anal fissures History of diverticulitis History of irregular heartbeat History of stress test Hx of vertigo Hypertension Prostate disease Shortness of breath on exertion Wears dentures Wears glasses Home Medications methylcellulose (laxative) (Citrucel Sugar Free oral powder) 1,000 mg PO DAILY 11/14/18 [History Last Taken 12/13/18] amlodipine 5 mg tablet 5 mg PO DAILY 10/05/19 [History Last Taken 11/29/21] acetaminophen 500 mg tablet (Tylenol Extra Strength) 1,000 mg PO Q6H PRN 01/15/22 [History Last Taken Unknown] meloxicam 15 mg tablet mg PO 01/15/22 [History Last Taken Unknown] tizanidine 4 mg tablet mg PO 01/15/22 [History Last Taken Unknown] tramadol 50 mg tablet mg PO 03/28/22 [History Last Taken Unknown] Allergy/AdvReac Type Severity Reaction Status Date / Time lisinopril Allergy Angioedema Verified 12/05/22 18:54 Family History Mother Cancer Brother Cancer Surgical History H/O colonoscopy History of colon surgery History of inguinal hernia repair Hx of biopsy Hx of bladder repair surgery S/P hemorrhoidectomy S/P laparoscopic cholecystectomy Social History Smoking Status: Former smoker alcohol intake: never substance use type: does not use ROS ROS ED ROS Narrative Constitutional: No fever, no chills. HEENT: No sore throat. No neck pain. No loss of vision. No rhinorrhea. Cardiovascular: Left-sided, sharp and stabbing, fleeting chest pain. More frequent today, in the last 4 hours. No palpitations. No pedal edema. Respiratory: No cough, no shortness of breath. Abdominal: No abdominal pain. No nausea. No vomiting. Genitourinary: No dysuria. No hematuria. Musculoskeletal: No myalgias. No arthralgias. Neurologic: No headaches. No dizziness. No lightheadedness. Skin: No rash. No change in color. Psychiatric: No depression. No anxiety. EXAM Physical Exam Narrative Exam Narrative: Afebrile. Vital signs noted. HEENT: Normocephalic. Atraumatic. PERRL, EOMI. Neck soft and supple. No point tenderness or step off. Cardiovascular: Regular rate and rhythm. No murmurs, rubs, or gallops appreciated. Respiratory: No tachypnea. Lungs clear to auscultation bilaterally. Gastrointestinal: Abdomen soft, nontender, with normoactive bowel sounds. No rebound or guarding. Neurological: Awake. Alert. Nonfocal, nonlateralizing. Skin: No rash. Normal color. No pallor. Musculoskeletal: No pedal edema. Full range of motion extremities. Const Vital Signs: 12/05/22 18:52 12/05/22 19:26 12/05/22 19:26 Temperature 97.2 F L Temperature Source Temporal Pulse Rate 97 Respiratory Rate 16 17 Blood Pressure 165/92 H Blood Pressure Mean 116 Pulse Ox 97 99 94 Oxygen Delivery Method Room Air Room Air Room Air Heart Score History: Slightly/Non-Suspicious ECG: Normal Age: >/= 65 years Risk Factors: 1 or 2 Risk Factors Troponin: </= Normal Limit Score: 3 MDM MDM MDM Narrative Medical decision making narrative: Nursing protocol was instituted for chest pain. In the differential diagnosis is acute coronary syndrome/STEMI versus non-STEMI, and PE, versus chest wall pain. PE is low on the differential as his pulse ox is 97% on room air, and he denies any DVT or PE risk factors. He is not tachycardic. Also in the differential diagnosis is pneumonia as he states in the past he has had an occasional cough, and he sneezed prior to arrival. EKG was obtained and interpreted by myself which demonstrates normal sinus rhythm at 93 bpm without ectopy or acute ST changes. No STEMI. I reviewed his chest x-ray and see no evidence of pneumonia or pneumothorax. I reviewed the radiology report which confirms my interpretation. I reviewed his laboratory work. CBC demonstrates normal white count of 9.3, hemoglobin 15.9 with hematocrit 48.0. Platelet count normal at 203. Potassium is elevated at 5.4, but this is moderately hemolyzed. This will be repeated. Glucose appropriately elevated at 116 with a normal anion gap of 5. Initial high-sensitivity troponin is 3. He will undergo a 2-hour troponin to look for delta troponin. This is very atypical chest pain for coronary artery disease. I feel that as long as his second troponin is negative for negative delta troponin that he would be able to be discharged to follow-up with his primary care provider. I reviewed his repeat troponin and it is 3, for a delta troponin of 0. Disposition is discharged home in stable condition. Return instructions were reviewed. Lab Data Attestation: I reviewed the patient's lab results. Labs: Laboratory Results - last 24 hr 12/05/22 12/05/22 12/05/22 19:25 19:25 19:25 WBC 9.3 RBC 5.36 Hgb 15.9 Hct 48.0 MCV 89.6 MCH 29.7 MCHC 33.1 RDW Std Deviation 45.1 H RDW Coeff of Adrian 13.8 Plt Count 203 MPV 9.6 Immature Gran % (Auto) 0.300 Neut % (Auto) 70.5 H Lymph % (Auto) 23.6 [place] % (Auto) 4.3 Eos % (Auto) 1.0 Baso % (Auto) 0.3 Absolute Neuts (auto) 6.5 Absolute Lymphs (auto) 2.18 Nucleated RBC % 0 Sodium 139 Potassium 5.4 H Chloride 105 Carbon Dioxide 29.0 Anion Gap 5 BUN 18 Creatinine 0.98 Estim Creat Clear Calc 69.14 Est GFR (MDRD) Af Amer 97 Est GFR (MDRD) Non-Af 80 BUN/Creatinine Ratio 18.3 Glucose 116 H Calcium 8.9 Troponin I High Sens 3 12/05/22 21:17 WBC RBC Hgb Hct MCV MCH MCHC RDW Std Deviation RDW Coeff of Adrian Plt Count MPV Immature Gran % (Auto) Neut % (Auto) Lymph % (Auto) [place] % (Auto) Eos % (Auto) Baso % (Auto) Absolute Neuts (auto) Absolute Lymphs (auto) Nucleated RBC % Sodium Potassium 3.9 Chloride Carbon Dioxide Anion Gap BUN Creatinine Estim Creat Clear Calc Est GFR (MDRD) Af Amer Est GFR (MDRD) Non-Af BUN/Creatinine Ratio Glucose Calcium Troponin I High Sens 3 Radiography Diagnostic Testing: Clinical Impression(s) from Imaging Studies Chest X-Ray 12/05/22 19:31 IMPRESSION: No acute cardiopulmonary disease or interval change. Electronically Signed: Orestes Zamudio DO at 19:44 EST Reading Location ID and State: [address] [place] [address] Tel [phone], Service support , Discharge Plan Triage Chief Complaint: Chest Pain ED Provider: Cuba Saldana Dx/Rx/DC Orders Clinical Impression: Chest pain, Hypertension Instructions: ED Chest Pain, Uncertain Cause, ED Hypertension, Established Prescriptions: No Action Citrucel Sugar Free powder 1,000 mg PO DAILY tizanidine 4 mg tablet PO meloxicam 15 mg tablet PO acetaminophen [Tylenol Extra Strength] 500 mg tablet 1,000 mg PO Q6H PRN tramadol 50 mg tablet PO amlodipine 5 MG tablet 5 mg PO DAILY Primary Care Provider: Abdoulaye Barber Referrals: Abdoulaye Barber MD [Primary Care Provider] - 1-2 Days if not improving Disposition Disposition: Home, Self Care
[2022-12-05 21:41] LABS: Potassium 3.9 mmol/L (3.5-5.1); Troponin-I HS 3 pg/mL (3.0-78.0)
[2022-12-05 22:15] VITALS: BP 140/78; PULSE 88; O2SAT 98; O2SAT 99
== END 2022-12-05 22:15 | disposition home or self-care (01) ==
PROVIDERS: Emergency Provider Emergency Medicine; PCP Family Medicine; Visit Provider Emergency Medicine
DX: R07.9 Chest pain, unspecified (principal); I10 Essential (primary) hypertension; Z87.891 Personal history of nicotine dependence; Z79.899 Other long term (current) drug therapy
CPT/HCPCS: 71045; 80048; 84132; 84484; 85025; 93005; 99283; A4216

== ENCOUNTER 2023-10-18 21:29 | Emergency (ER) | payer MEDICARE, SELFPAY ==
[2023-10-18 21:30] VITALS: BP 165/94; PULSE 79; RESP 16; TEMP 36.6; O2SAT 96; BMI 29.9
--- OUTSIDE RECORDS SUMMARY | 2023-10-18 22:22 | XMS RPT_ITS | CCD ---
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 Name Role Phone No, Physician Unavailable Unavailable LUIS DANIEL HICKEY Unavailable Unavailab le NO, PHYSICIAN Unavailable Unavailable No, Physician Primary Care Provider Unavailabl Crow Choi MD Primary Care Provider [phone] Crow Greenberg MD Primary Care Provider CROW GREENBERG Attending Unavailable CROW GREENBERG Primary Care Unavailable CROW GREENBERG Primary Care Unavailable ELOINA ZAIDI Attending Unavailable CROW GREENBERG Primary Care Unavailable CROW GREENBERG Referring Unavailable CROW GREENBERG Primary Care Unavailable CROW GREENBERG Primary Care Unavailable Allergies Allergy Classification Reported Allergen(s) Allergy Type Date of Onset Reaction(s) Facility (5 sources) Lisinopril; Translations: [LISINOPRIL] Drug Allergy 12-24-2018 [facility] Medications Current Medications Medication Drug Class(es) Dates Sig (Normalized) Sig (Original) aspirin 81 mg chewable tablet (2 sources) Nonsteroidal Anti-inflammatory Drug aspirin 81 mg chewable tablet Chew and Swallow 81 mg. 0 Active fluorouracil 5 mg/ml topical cream (2 sources) Nucleoside Metabolic Inhibitor Start: 09-18-2022 End: 12-20-2022 Fluorouracil 0.5 % cream Apply to affected area once daily. 0 09/18/2022 12/20/2022 Discontinued Completed/Discontinued Medications Medication Drug Class(es) Dates Sig (Normalized) Sig (Original) acetaminophen 325 mg oral tablet (1 source) Start: 05-05-2018 End: 05-05-2018 acetaminophen (TYLENOL) tablet 975 mg amLODIPine 5 mg oral tablet (5 sources) Dihydropyridine Calcium Channel Bob Start: 12-20-2022 take 1 tablet by mouth once daily amLODIPine (NORVASC) 5 mg tablet Take 1 tablet by mouth once daily. 90 tablet 3 12/20/2022 Active Problems Active Problems Problem Classification Problem Date Documented Date Episodic/Chronic Abdominal pain (5 sources) Left lower quadrant pain; Translations: [Left lower quadrant pain] 10-27-2019 Episodic Anxiety disorders (3 sources) Generalized anxiety disorder; Translations: [Generalized anxiety disorder] Onset: 09-30-2023 Chronic Disorders of lipid metabolism (2 sources) Hyperlipidemia; Translations: [Hyperlipidemia, unspecified] Onset: 09-30-2023 Chronic Diverticulosis and diverticulitis (4 sources) Diverticulosis of colon; Translations: [Diverticulosis of large intestine without perforation or abscess without bleeding] 04-04-2006 Chronic Essential hypertension (7 sources) Benign essential hypertension; Translations: [Essential (primary) hypertension] Onset: 08-29-2007 08-29-2007 Chronic Hyperplasia of prostate (4 sources) Benign prostatic hyperplasia; Translations: [Benign prostatic hyperplasia without lower urinary tract symptoms] Onset: 05-05-2015 05-05-2015 Chronic Inflammation; infection of eye (except that caused by tuberculosis or sexually transmitteddisease) (1 source) Hordeolum externum of upper eyelid of left eye; Translations: [Hordeolum externum left upper eyelid] 06-01-2023 Episodic Lymphadenitis (3 sources) Cervical lymphadenitis; Translations: [Nonspecific lymphadenitis, unspecified] Onset: 05-05-2018 Episodic Nonmalignant breast conditions (1 source) Pain of breast; Translations: [Mastodynia] Episodic Nonspecific chest pain (3 sources) Non-cardiac chest pain; Translations: [Other chest pain] Onset: 05-05-2018 Episodic Other connective tissue disease (1 source) Pain in axilla; Translations: [Pain in left upper arm] Episodic Past or Other Problems Problem Classification Problem Date Documented Da te Episodic/Chronic Abdominal hernia (4 sources) Bilateral inguinal hernia; Translations: [Bilateral inguinal hernia, without obstruction or gangrene, not specified as recurrent] Onset: 11-20-2013 11-20-2013 Episodic Other ear and sense organ disorders (4 sources) Tinnitus; Translations: [Tinnitus, unspecified ear] Onset: 08-07-2016 08-07-2016 Episodic Results Test Name Value Interpretation Reference Range Facil ity Vital Signs Date Time Vital Sign Value Performing Clinician Faci lity 06-01-2023 09:21-0400 Body temperature 96.91 [degF] Timbo Charles MD Work Phone: [facility] 06-01-2023 09:21-0400 Body weight 90.27 kg Timbo Charles MD Work Phone: [facility] 06-01-2023 09:21-0400 Diastolic blood pressure 72 mm[Hg] Timbo Charles MD Work Phone: [facility] 06-01-2023 09:21-0400 Heart rate 90 /min Timbo Charles MD Work Phone: [facility] 06-01-2023 09:21-0400 Respiratory rate 16 /min Timbo Charles MD Work Phone: [facility] 06-01-2023 09:21-0400 SaO2% (BldA) [Mass fraction] 96 % Timob Charles MD Work Phone: [facility] 06-01-2023 09:21-0400 Systolic blood pressure 122 mm[Hg] Timbo Charles MD Work Phone: [facility] 12-20-2022 08:02-0500 Body weight 88.45 kg Crow Greenberg MD Work Phone: [facility] 12-20-2022 08:02-0500 Diastolic blood pressure 74 mm[Hg] Crow Greenberg MD Work Phone: [facility] 12-20-2022 08:02-0500 Heart rate 78 /min Crow Greenberg MD Work Phone: [facility] 12-20-2022 08:02-0500 Respiratory rate 16 /min Crow Greenberg MD Work Phone: [facility] 12-20-2022 08:02-0500 Systolic blood pressure 120 mm[Hg] Crow Greenberg MD Work Phone: [facility] 09-18-2022 15:52-0500 Body weight 89 kg Crow Greenberg MD Work Phone: [facility] 09-18-2022 15:52-0500 Diastolic blood pressure 80 mm[Hg] Crow Greenberg MD Work Phone: [facility] 09-18-2022 15:52-0500 Heart rate 74 /min Crow Greenberg MD Work Phone: [facility] 09-18-2022 15:52-0500 Respiratory rate 16 /min Crow Greenberg MD Work Phone: [facility] 09-18-2022 15:52-0500 Systolic blood pressure 124 mm[Hg] Crow Greenberg MD Work Phone: [facility] 05-05-2018 03:30-0400 BP Diastolic 85 mm[Hg] [facility] 05-05-2018 03:30-0400 BP Systolic 140 mm[Hg] [facility] 05-05-2018 03:30-0400 Pulse (Heart Rate) 66 /min [facility] 05-05-2018 03:30-0400 Pulse Oximetry 97 % [facility] 05-05-2018 03:30-0400 Respiratory Rate 18 /min [facility] 05-04-2018 22:24-0400 BMI (Body Mass Index) 29.53 kg/m2 [facility] 05-04-2018 22:24-0400 Body Temperature 98.1 [degF] [facility] 05-04-2018 22:24-0400 Height 175.3 cm [facility] 05-04-2018 22:24-0400 Weight 90.72 kg [facility] Encounters Encounter Date Encounter Type Care Provider Facility Start: 09-30-2023 End: 09-30-2023 ambulatory CROW GREENBERG Facility:[facility] Start: 09-14-2023 End: 09-14-2023 [facility] Start: 06-18-2023 End: 06-19-2023 [facility] Start: 06-01-2023 End: 06-01-2023 ambulatory [facility] Start: 06-01-2023 End: 06-01-2023 Patient encounter procedure Timbo Charles MD Work Phone: [facility] Procedures Date Procedure Procedure Detail Performing Clinician Start: 03-29-2021 Adult depression scr eening assessment Crow Greenberg MD Work Phone: Start: 10-19-2019 Colonoscopy Crow fajardo MD Work Phone: Plan of Treatment Date Care Activity Detail Author Start: 11-02-2031 Urine microalbumin profile DTAP,TDAP,TD (4 - Td or Tdap) [facility] Start: 10-19-2029 Colonoscopy COLONOSCOPY [facility] Start: 10-19-2029 COLORECTAL CANCER SCREENING COLORECTAL CANCER SCREENING [facility] Start: 03-14-2027 LIPID SCREEN LIPID SCREEN [facility] Start: 03-14-2025 DIABETES SCREEN DIABETES SCREEN [facility] Start: 06-01-2024 BP CONTROLLED (<130/80) BP CONTROLLED (<130/80) [facility] Start: 12-21-2023 ANNUAL PCP TEAM CHRONIC DISEASE VISIT ANNUAL PCP TEAM CHRONIC DISEASE VISIT [facility] Start: 12-21-2023 BP CONTROLLED (<130/80) BP CONTROLLED (<130/80) [facility] Start: 09-18-2023 ANNUAL PCP TEAM CHRONIC DISEASE VISIT ANNUAL PCP TEAM CHRONIC DISEASE VISIT [facility] Start: 06-23-2023 End: 08-23-2023 Comprehensive metabolic 2000 panel - Serum or Plasma COMP METABOLIC PANEL Lab Routine Essential hypertension, benign Hyperlipidemia, unspecified hyperlipidemia type Expected: 06/23/2023 (Approximate), Expires: 08/23/2023 [facility] Work Phone: Immunizations Immunization Date Immunization Notes Care Provider Fa cility 08-27-2022 influenza, high-dose , quadrivalent vaccine (FLUZONE HIGH DOSE QUADRIVALENT) Crow Greenberg MD Work Phone: [facility] 11-02-2021 tetanus toxoid, reduced diphtheria toxoid, and acellular pertussis vaccine, adsorbed Crow Greenberg MD Work Phone: [facility] 08-07-2021 influenza, high-dose , quadrivalent vaccine (FLUZONE HIGH DOSE QUADRIVALENT) Crow Greenberg MD Work Phone: [facility] 07-22-2020 influenza, high dose seasonal, preservative-free Crow Greenberg MD Work Phone: [facility] 07-22-2020 influenza, high-dose , quadrivalent vaccine (FLUZONE HIGH DOSE QUADRIVALENT) Crow Greenberg MD Work Phone: [facility] 07-11-2019 influenza, high dose seasonal, preservative-free Crow Greenberg MD Work Phone: [facility] 07-15-2018 influenza, high dose seasonal, preservative-free Crow Greenberg MD Work Phone: [facility] 06-27-2017 influenza, high dose seasonal, preservative-free Crow Greenberg MD Work Phone: [facility] 07-08-2016 influenza, high dose seasonal, preservative-free Crow Greenberg MD Work Phone: [facility] 06-23-2014 influenza, seasonal, injectable Crow Greenberg MD Work Phone: [facility] 06-17-2013 influenza virus vaccine, unspecified formulation Crow Greenberg MD Work Phone: [facility] 04-04-2012 tetanus toxoid, reduced diphtheria toxoid, and acellular pertussis vaccine, adsorbed Crow Greenberg MD Work Phone: [facility] 06-22-2009 hepatitis B vaccine, adult dosage Crow Greenberg MD Work Phone: [facility] 02-08-2009 hepatitis B vaccine, adult dosage Crow Greenberg MD Work Phone: [facility] 12-30-2008 hepatitis B immune globulin Crow Greenberg MD Work Phone: [facility] 06-30-2007 influenza virus vaccine, unspecified formulation Crow Greenberg MD Work Phone: [facility] 10-14-2001 diphtheria and tetan us toxoids, adsorbed for pediatric use Crow Greenberg MD Work Phone: [facility] Work Phone: Payers Date Payer Category Payer Medicare [employer] MEDICARE [employer] MEDICARE PPO [id number] 2021-Present [phone] [address] [address] [place] [address] PPO [id number] 2017 Medicare [id number] 2017 Medicare [id number] Social History Date Type Detail Facility Start: 05-04-2018 End: 09-18-2022 Tobacco smoking status NHIS Former smoker [facility] Sex Assigned At Not on file [facility] Start: 05-04-2018 End: 09-18-2022 Tobacco use and exposure Never used [facility] Start: 05-04-2018 End: 06-01-2023 Alcohol intake Current non-drinker of alcohol (finding) [facility] End: 10-14-1987 History of tobacco use Current smoker [facility] End: 10-14-1987 History of tobacco use Cigarette Smoker [facility] Start: 11-02-2020 End: 09-12-2022 History SDOH Alcohol Frequency 1 [facility] Start: 11-02-2020 History SDOH Alcohol Std Drinks 98 [facility] Start: 11-02-2020 End: 09-12-2022 History SDOH Social Connections Phone 5 [facility] Start: 11-02-2020 End: 09-12-2022 History SDOH Social Connections Adventism 3 [facility] Start: 11-02-2020 End: 09-12-2022 History SDOH Physical Activity DPW 2 [facility] Start: 11-02-2020 End: 09-12-2022 History SDOH Financial 4 [facility] Start: 11-02-2020 Education 12 [facility] Start: 1950 Sex Assigned At Male [facility] Start: 09-18-2022 End: 11-09-2022 Cigarettes smoked current (pack per day) - Reported 1 [facility] Start: 09-12-2022 History SDOH Alcohol Std Drinks 0 [facility] Start: 09-12-2022 End: 11-09-2022 Social connection and isolation panel [facility] Do you belong to any clubs or organizations such as sikhism groups, unions, fraternal or athletic groups, or school groups? Yes [facility] Are you now , , , , never or living with a partner? [facility] How often to you hav e a drink containing alcohol? Never [facility] How many standard dr inks containing alcohol do you have on a typical day? Patient does not drink [facility] How hard is it for y ou to pay for the very basics like food, housing, medical care, and heating Not very hard [facility] Do you feel stress - tense, restless, nervous, or anxious, or unable to sleep at night because your mind is troubled all the time - these days [OSQ] Not at all [facility] (I/We) worried wheth er (my/our) food would run out before (I/we) got money to buy more. Never true [facility] In the past 12 month s, was there a time when you were not able to pay the mortgage or rent on time? No [facility] Start: 11-02-2020 Gender identity Identifies as male gender (finding) [facility] Start: 11-02-2020 Sexual orientation Heterosexual (clare bueno) [facility] Medical Equipment Procedure Code Equipment Code Equipment Origin al Text Equipment Identifier Dates Mesh Srg Pariete x 8cm Marco Antonio Rnd - [id number] Start: 02-10-2014 Clinical Notes 05-05-2015 to 09-30-2023 Timbo Charles MD - 06/01/2023 9:34 AM Ragini Greenberg MD - 12/20/2022 8:40 AM Elly Greenberg MD - 09/18/2022 3:40 PM EST Note Date & Type Note Facility 09-30-2023 Note HNO ID: [id number] Author: Eloina Zaidi APRN.SCRUBBER OPERATOR Service: ? Author Type: Nurse Practitioner Type: Progress Notes Filed: 09/30/2023 8:38 AM Note Text: This is a 73 year old male who presents today with: Patient presents with: Recheck: Routine and lab follow up HISTORY OF PRESENT ILLNESS: Mehran Merida is a 73 year old male. Patient presents with: Recheck: Routine and lab follow up 9 Month Follow up HTN: BP controlled on amlodipine 5 mg daily. Not checking blood pressure at home. Denies chest pain, palpitations, dizziness, or edema. Mood: Stable, no increased sadness, anxiety, or SI/HI. Due for labs in March. 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 Sauceda [facility] REM LESION FACE,EAR,EYEL <5MM 12/18/2006 Exc. right apical ear lesion REM LESION TRUNK,ARM,LEG 0.6 -1.0CM 01/29/2007 Exc. right upper arm SC lesion RPR 1ST INGUN HRNA AGE 5 YRS/> REDUCIBLE 02/10/2014 right RPR UMBILICAL HERNIA < 5 YRS REDUCIBLE 12/02/1998 Hernia repair, umbilical ALLERGIES Lisinopril MEDICATIONS Current Outpatient Medications Medication Sig Amoxicillin 500 mg tablet Take 1 tablet by mouth two times a day for 10 days. loratadine (CLARITIN ORAL) Take by mouth. amLODIPine (NORVASC) 5 mg tablet Take 1 tablet by mouth once daily. methylcellulose, with sugar, (CITRUCEL) oral powder Take 1 teaspoonful by mouth once daily. No current facility-administered medications for this visit. FAMILY HISTORY Problem Relation Age of Onset Cancer Mother lung Prostate Cancer Brother other (healthy [Other]) Father Social History Tobacco Use Smoking status: Former Packs/day: 1.00 Years: 20.00 Additional pack years: 0.00 Total pack years: 20.00 Types: Cigarettes Quit date: 10/14/1987 Years since quittin.9 Smokeless tobacco: Never Vaping Use Vaping Use: Never used Substance Use Topics Alcohol use: No Drug use: No REVIEW OF SYSTEMS GENERAL: No weight loss, malaise or fevers/chills HEENT: Negative for frequent or significant headaches, No changes in hearing or vision. NECK: Negative for lumps, goiter, pain and significant neck swelling RESPIRATORY: Negative for cough, hemoptysis, wheezing, dyspnea or shortness of breath CARDIOVASCULAR: Negative for chest pain, leg swelling, orthopnea, or palpitations GI: No nausea, vomiting, or diarrhea/constipation. No hematochezia/melena. No heartburn or reflux symptoms. : No history of dysuria, frequency or incontinence MUSCULOSKELETAL: Negative for joint pain or swelling. SKIN: Negative for lesions, rash, and itching ENDOCRINE: Negative for cold or heat intolerance, polyuria, polydipsia and goiter NEURO: No history of headaches, syncope, paralysis, seizures or tremors MOOD: Negative for depression, anxiety, or suicidal ideation. EXAM: BP 132/80 (BP Site: Right Arm, BP Position: Sitting, BP Cuff Size: Large Adult) Pulse 88 Resp 18 Wt 90.7 kg (200 lb) BMI 29.53 kg/m? PHYSICAL EXAM: General Appearance: Well appearing, alert, in no acute distress, well-hydrated, well nourished. Skin: Skin color, texture, turgor normal, no suspicious rashes or lesions. Head: Normocephalic, no masses, lesions, tenderness or abnormalities. Eyes: Anicteric sclera. Extraocular movements are intact. Lungs: Lungs clear to auscultation. No wheezing, rhonchi, rales. Heart: RRR without murmur, gallop, or rubs. No ectopy. Extremities: No deformities, edema, skin discoloration, clubbing or cyanosis. Good capillary refill. Peripheral Pulses: Normal, Capillary refill <2secs, strong peripheral pulses, Pulses palpable. Neurologic: Gait normal. Sensation grossly intact. Component Latest Ref Rng AND Units 06/18/2023 Protein, Total 6.3 - 8.0 g/dL 7.1 Albumin 3.9 - 4.9 g/dL 4.0 Calcium 8.5 - 10.2 mg/dL 9.4 Bilirubin, Total 0.2 - 1.3 mg/d (more content not included)... [facility] 09-14-2023 Note HNO ID: [id number] Author: Timbo Charles MD Service: ? Author Type: Physician Type: Progress Notes Filed: 09/14/2023 8:25 AM Note Text: Patient presents with: Sore Throat: x 5 days, some nasal congestion HPI: Feeling sore throat for 5 days, had a URI for a few days before that. Positive symptoms: Sore throat, Nasal Congestion, Negative symptoms: Cough, Fever, Vomiting, Diarrhea, OTC: Lozenges, salt water, tylenol MEDICATIONS: Current Outpatient Medications Medication Sig loratadine (CLARITIN ORAL) Take by mouth. amLODIPine (NORVASC) 5 mg tablet Take 1 tablet by mouth once daily. methylcellulose, with sugar, (CITRUCEL) oral powder Take 1 teaspoonful by mouth once daily. No current facility-administered medications for this visit. ALLERGIES: ALLERGIES Allergen Reactions Lisinopril Hives Possible acute reaction to Lisinopril. Hives disappeared once medication was stopped. VITALS: BP 132/82 Pulse 86 Temp 36.1 ?C (96.9 ?F) Resp 16 Wt 91.2 kg (201 lb) SpO2 95% BMI 29.68 kg/m? PHYSICAL EXAM: GEN: mildly ill appearing HEENT: PERRL, EOMI, conjunctiva clear Ears: canals clear. TMs without erythema, bulge, or effusion Sinuses: non-tender frontal sinus, non-tender maxillary sinuses Throat: moist mucous membranes, mild erythema, no exudate Neck: supple, no thyromegaly, no lymphadenopathy HEART: regular rate and rhythm, no murmurs LUNGS: clear to auscultation, no wheezes or crackles, no increased WOB ASSESSMENT/PLAN: 1. Streptococcal pharyngitis - ICD9: 034.0, ICD10: J02.0 (primary diagnosis) 2. Sore throat - ICD9: 462, ICD10: J02.9 - Alere Strep Test positive - Discussed supportive care treatment with as needed analgesia. - Contagious disease precautions discussed- including considered contagious until on antibiotics for 24 hours - STREP A MOLECULAR (POC) - AMOXICILLIN 500 MG TABLET Timbo Charles MD [facility] 06-01-2023 Note HNO ID: [id number] Author: Timbo Charles MD Service: ? Author Type: Physician Type: Progress Notes Filed: 06/01/2023 9:47 AM Note Text: Patient presents with: Eye Problem: left upper eyelid swollen and red x 10 days HPI: Eye Lesion: Location: left upper outer eyelid Duration: 1 1/2 weeks Pruritis/Pain: painful Change: getting larger and more painful Drainage/blister/pustule/ulcerat ion: swollen. No drainage. Treatment: warm compress MEDICATIONS: amLODIPine (NORVASC) 5 mg tablet Take 1 tablet by mouth once daily. methylcellulose, with sugar, (CITRUCEL) oral powder Take 1 teaspoonful by mouth once daily. loratadine (CLARITIN ORAL) Take by mouth. sulfamethoxazole-trimethoprim (BACTRIM DS) 800-160 mg per tablet Take 1 tablet by mouth twice daily for 7 days. ofloxacin (OCUFLOX) 0.3 % ophthalmic solution Use 2 Drops in the left eye every 4 hours for 7 days. ALLERGIES: ALLERGIES Allergen Reactions Lisinopril Hives Possible acute reaction to Lisinopril. Hives disappeared once medication was stopped. VITALS: BP 122/72 Pulse 90 Temp 36.1 ?C (96.9 ?F) Resp 16 Wt 90.3 kg (199 lb) SpO2 96% BMI 29.39 kg/m? PHYSICAL EXAM: GEN: pleasant, no acute distress, alert HEENT: No pre-auricular lymph nodes EYES: PERRL, EOMI, sclera clear. 1cm raised erythematous papule lateral upper eyelid with 2 pustules just below the lash line. NECK: supple, no lymphadenopathy, no thyromegaly ASSESSMENT/PLAN: 1. Hordeolum externum of left upper eyelid - ICD9: 373.11, ICD10: H00.014 Probable staph stye which is bordering on abscess. - SULFAMETHOXAZOLE 800 MG-TRIMETHOPRIM 160 MG TABLET - OFLOXACIN 0.3 % EYE DROPS - ABSCESS AND WOUND CULTURE WITH GRAM STAIN Continue warm compress. His eye doctor is out of town, but he will follow up with him next week. He will follow up sooner with signs of worsening infection such as increasing redness, pain, swelling, or fever/malaise. Timbo Charles MD [facility] 06-01-2023 History of Presen t illness Narrative Patient presents with: Eye Problem: left upper eyelid swollen and red x 10 days HPI: Eye Lesion: Location: left upper outer eyelid Duration: 1 1/2 weeks Pruritis/Pain: painful Change: getting larger and more painful Drainage/blister/pustule/ulcerat ion: swollen. No drainage. Treatment: warm compress MEDICATIONS: amLODIPine (NORVASC) 5 mg tablet Take 1 tablet by mouth once daily. methylcellulose, with sugar, (CITRUCEL) oral powder Take 1 teaspoonful by mouth once daily. loratadine (CLARITIN ORAL) Take by mouth. sulfamethoxazole-trimethoprim (BACTRIM DS) 800-160 mg per tablet Take 1 tablet by mouth twice daily for 7 days. ofloxacin (OCUFLOX) 0.3 % ophthalmic solution Use 2 Drops in the left eye every 4 hours for 7 days. ALLERGIES: ALLERGIES Allergen Reactions Lisinopril Hives Possible acute reaction to Lisinopril. Hives disappeared once medication was stopped. VITALS: BP 122/72 Pulse 90 Temp 36.1 C (96.9 F) Resp 16 Wt 90.3 kg (199 lb) SpO2 96% BMI 29.39 kg/m PHYSICAL EXAM: GEN: pleasant, no acute distress, alert HEENT: No pre-auricular lymph nodes EYES: PERRL, EOMI, sclera clear. 1cm raised erythematous papule lateral upper eyelid with 2 pustules just below the lash line. NECK: supple, no lymphadenopathy, no thyromegaly ASSESSMENT/PLAN: 1. Hordeolum externum of left upper eyelid - ICD9: 373.11, ICD10: H00.014 Probable staph stye which is bordering on abscess. - SULFAMETHOXAZOLE 800 MG-TRIMETHOPRIM 160 MG TABLET - OFLOXACIN 0.3 % EYE DROPS - ABSCESS AND WOUND CULTURE WITH GRAM STAIN Continue warm compress. His eye doctor is out of town, but he will follow up with him next week. He will follow up sooner with signs of worsening infection such as increasing redness, pain, swelling, or fever/malaise. Timbo Charles MD documented in this encounter [facility] 12-20-2022 Note HNO ID: [id number] Author: Crow Greenberg MD Service: ? Author Type: Physician Type: Progress Notes Filed: 12/20/2022 9:04 AM Note Text: Chief Complaint Patient presents with: Follow Up: Medication follow up HPI Mehran Merida is a 72 year old male who presents here today for follow up. Follow up on anxiety and depression. Started on Paxil 10 mg daily in Dec however he only took it about a week because he was clenching his teeth during the night and waking up with jaw pain. He stated after stopping the medication that improved. He is not doing any counseling. Feels he is doing ok without any medication, not interested in trying or using any other medications. Stress level has improved. HTN: BP controlled on amlodipine 5 mg daily Breast: left; sensitivity improved. No further issues. Was seen in ER recently for left chest sharp pain; evaluation was normal; symptoms resolved. Past medical history, appointments, medications, allergies reviewed. 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 Sauceda [facility] REM LESION FACE,EAR,EYEL <5MM 12/18/2006 Exc. right apical ear lesion REM LESION TRUNK,ARM,LEG 0.6 -1.0CM 01/29/2007 Exc. right upper arm SC lesion RPR 1ST INGUN HRNA AGE 5 YRS/> REDUCIBLE 02/10/2014 right RPR UMBILICAL HERNIA < 5 YRS REDUCIBLE 12/02/1998 Hernia repair, umbilical Family History FAMILY HISTORY Problem Relation Age of Onset Cancer Mother lung Prostate Cancer Brother other (healthy [Other]) Father Patient Allergies ALLERGIES Allergen Reactions Lisinopril Hives Possible acute reaction to Lisinopril. Hives disappeared once medication was stopped. Current Medications Current Outpatient Medications on File Prior to Visit Medication Sig Fluorouracil 0.5 % cream Apply to affected area once daily. PARoxetine (PAXIL) 10 mg tablet Take 1 tablet by mouth once daily. amLODIPine (NORVASC) 5 mg tablet TAKE 1 TABLET EVERY DAY methylcellulose, with sugar, (CITRUCEL) oral powder Take 1 teaspoonful by mouth once daily. No current facility-administered medications on file prior to visit. Social History Social History Tobacco Use Smoking status: Former Packs/day: 1.00 Years: 20.00 Pack years: 20.00 Types: Cigarettes Quit date: 10/14/1987 Years since quittin.2 Smokeless tobacco: Never Vaping Use Vaping Use: Never used Substance Use Topics Alcohol use: No Drug use: No EXAM: BP 120/74 Pulse 78 Resp 16 Wt 88.5 kg (195 lb) BMI 28.80 kg/m? General Appearance: Well appearing, alert, in no acute distress, well-hydrated, well nourished.. Lungs: Lungs clear to auscultation. No wheezing, rhonchi, rales.. Heart: RRR without murmur, gallop, or rubs. No ectopy. Health Maintenance List ABDOMINAL AORTIC ANEURYSM SCREENING Never done BP CONTROLLED (<130/80) Never done SHINGRIX VACCINE(1 of 2) Never done PNEUMOCOCCAL: 65+(1 - PCV) Never done COVID-19 VACCINE(3 - Booster for Moderna series) due on 04/05/2021 ADVANCE DIRECTIVE DISCUSSION due on 10/14/2022 DEPRESSION ASSESSMENT due on 10/14/2022 HEPATITIS C SCREENING due on 03/15/2023 ANNUAL PCP TEAM CHRONIC DISEASE VISIT due on 09/18/2023 DIABETES SCREEN due on 03/14/2025 LIPID SCREEN due on 03/14/2027 COLORECTAL CANCER SCREENING due on 10/19/2029 DTAP,TDAP,TD(4 - Td or Tdap) due on 11/02/2031 INFLUENZA Completed Data reviewed none ASSESSMENT/PLAN: 1. Essential hypertension, benign - ICD9: 401.1, ICD10: I10 (primary diagnosis) - good control - Continue current medication(s) - Recommended regular aerobic exercise. - Recommend home blood pressure monitoring, to bring results in on next visit - Goal of BP <140/90 - COMP METABOLIC PANEL 2. Hyperlipidemia, unspecified hyperlipidemia type - ICD9: 272.4, ICD10: E78.5 Check labs (more content not included)... [facility] 12-20-2022 History of Presen t illness Narrative Chief Complaint Patient presents with: Follow Up: Medication follow up HPI Mehran Merida is a 72 year old male who presents here today for follow up. Follow up on anxiety and depression. Started on Paxil 10 mg daily in Sep however he only took it about a week because he was clenching his teeth during the night and waking up with jaw pain. He stated after stopping the medication that improved. He is not doing any counseling. Feels he is doing ok without any medication, not interested in trying or using any other medications. Stress level has improved. HTN: BP controlled on amlodipine 5 mg daily Breast: left; sensitivity improved. No further issues. Was seen in ER recently for left chest sharp pain; evaluation was normal; symptoms resolved. Past medical history, appointments, medications, allergies reviewed. 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 Sauceda [facility] REM LESION FACE,EAR,EYEL <5MM 12/18/2006 Exc. right apical ear lesion REM LESION TRUNK,ARM,LEG 0.6 -1.0CM 01/29/2007 Exc. right upper arm SC lesion RPR 1ST INGUN HRNA AGE 5 YRS/> REDUCIBLE 02/10/2014 right RPR UMBILICAL HERNIA < 5 YRS REDUCIBLE 12/02/1998 Hernia repair, umbilical Family History FAMILY HISTORY Problem Relation Age of Onset Cancer Mother lung Prostate Cancer Brother other (healthy [Other]) Father Patient Allergies ALLERGIES Allergen Reactions Lisinopril Hives Possible acute reaction to Lisinopril. Hives disappeared once medication was stopped. Current Medications Current Outpatient Medications on File Prior to Visit Medication Sig Fluorouracil 0.5 % cream Apply to affected area once daily. PARoxetine (PAXIL) 10 mg tablet Take 1 tablet by mouth once daily. amLODIPine (NORVASC) 5 mg tablet TAKE 1 TABLET EVERY DAY methylcellulose, with sugar, (CITRUCEL) oral powder Take 1 teaspoonful by mouth once daily. No current facility-administered medications on file prior to visit. Social History Social History Tobacco Use Smoking status: Former Packs/day: 1.00 Years: 20.00 Pack years: 20.00 Types: Cigarettes Quit date: 10/14/1987 Years since quittin.2 Smokeless tobacco: Never Vaping Use Vaping Use: Never used Substance Use Topics Alcohol use: No Drug use: No EXAM: BP 120/74 Pulse 78 Resp 16 Wt 88.5 kg (195 lb) BMI 28.80 kg/m General Appearance: Well appearing, alert, in no acute distress, well-hydrated, well nourished.. Lungs: Lungs clear to auscultation. No wheezing, rhonchi, rales.. Heart: RRR without murmur, gallop, or rubs. No ectopy. Health Maintenance List ABDOMINAL AORTIC ANEURYSM SCREENING Never done BP CONTROLLED (<130/80) Never done SHINGRIX VACCINE(1 of 2) Never done PNEUMOCOCCAL: 65+(1 - PCV) Never done COVID-19 VACCINE(3 - Booster for Moderna series) due on 04/05/2021 ADVANCE DIRECTIVE DISCUSSION due on 10/14/2022 DEPRESSION ASSESSMENT due on 10/14/2022 HEPATITIS C SCREENING due on 03/15/2023 ANNUAL PCP TEAM CHRONIC DISEASE VISIT due on 09/18/2023 DIABETES SCREEN due on 03/14/2025 LIPID SCREEN due on 03/14/2027 COLORECTAL CANCER SCREENING due on 10/19/2029 DTAP,TDAP,TD(4 - Td or Tdap) due on 11/02/2031 INFLUENZA Completed Data reviewed none ASSESSMENT/PLAN: 1. Essential hypertension, benign - ICD9: 401.1, ICD10: I10 (primary diagnosis) - good control - Continue current medication(s) - Recommended regular aerobic exercise. - Recommend home blood pressure monitoring, to bring results in on next visit - Goal of BP <140/90 - COMP METABOLIC PANEL 2. Hyperlipidemia, unspecified hyperlipidemia type - ICD9: 272.4, ICD10: E78.5 Check labs in 6 months - COMP METABOLIC PANEL - LIPID PANEL BASIC 3. EVERETT (generalized anxiety disorder) - ICD9: 300.02, ICD10: F41.1 Stable off meds Follow up in 6 months I agree with the Chief Complaint, ROS, and Past Histories independently gathered by the clinical technical support agent and the remaining scribed note accurately describes my personal service to the patient. Medical Decision Making: Problems: Moderate: 2+ stable chronic illnesses Data: Unique test(s) ordered: 2 Risk: Moderate: Drug management Medical Decision Making Level: 4 - Moderate Crow Greenberg MD The documentation for this note was completed by Key Boswell Ma acting as scribe for Crow Greenberg MD. December 20, 2022 8:03 AM. Key Bowsell Ma documented in this encounter [facility] 09-18-2022 History of Presen t illness Narrative Chief Complaint Patient presents with: 6 Month Exam HPI Mehran Merida is a 72 year old male who presents here today for 6 month follow up. No bowel, Gi, or urinary concerns. Follows with Urologist Dr. Sauceda. Had TURP and Cystolitholapaxy done in Nov 2021. Pain: chronic back, follows with Dr. Ramires with [facility]. No longer on Tramadol. The pain has improved. He had a nerve block done which helped. HTN: Does not check BP at home. Denies any chest pains, dizziness, or SOB. Taking Norvasc 5 mg daily. Derm: is using Fluorouracil cream on the head to treat some AK spots. Pain: Left side abdomen that goes around to the left side back, sharp pain with movements, dull ache all other times. Feels like he has some swelling to the lower left rib area. Been constant x 1 month, states he gets episodes of this off and on but it usually resolves but this time it has not. Hx of diverticulitis. No diverticulitis sx, no bleeding, diarrhea. He denies any urinary or bowel issues, no n/v. No fevers. Has been taking tylenol or ibuprofen occ. Pain: left armpit that goes across the left side chest, the nipple is hard and sensitive all the time. He states that he had issues with this earlier this year and it got better, and has now returned. Skin is very sensitive, can't stand wearing a shirt at times. No lumps to the breast or under the armpit. The area does itch at times. It did not bother him all summer, just started up again about a month ago. Stress: Increased, states that he has been feeling down some with dealing with all that his is going through, she has severe chronic anxiety. Is on medication and doing counseling. He is not doing any counseling. He denies feeling depressed or hopeless. He states between his son, daughter, and he has a lot of stress because of their stress. He was on paxil in the past for a short time that he thinks did help him. Vertigo: off and on, had a bout of this last . Past medical history, appointments, medications, allergies reviewed. 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 Sauceda [facility] REM LESION FACE,EAR,EYEL <5MM 12/18/2006 Exc. right apical ear lesion REM LESION TRUNK,ARM,LEG 0.6 -1.0CM 01/29/2007 Exc. right upper arm SC lesion RPR 1ST INGUN HRNA AGE 6 YRS/> REDUCIBLE 02/10/2014 right RPR UMBILICAL HERNIA < 5 YRS REDUCIBLE 12/02/1998 Hernia repair, umbilical Family History FAMILY HISTORY Problem Relation Age of Onset Cancer Mother lung Prostate Cancer Brother other (healthy [Other]) Father Patient Allergies ALLERGIES Allergen Reactions Lisinopril Hives Possible acute reaction to Lisinopril. Hives disappeared once medication was stopped. Current Medications Current Outpatient Medications on File Prior to Visit Medication Sig traMADol (ULTRAM) 50 mg tablet take 1 tablet by mouth every 6 hours if needed for pain for 15 DAYS amLODIPine (NORVASC) 5 mg tablet TAKE 1 TABLET EVERY DAY methylcellulose, with sugar, (CITRUCEL) oral powder Take 1 teaspoonful by mouth once daily. No current facility-administered medications on file prior to visit. Social History Social History Tobacco Use Smoking status: Former Packs/day: 1.00 Years: 20.00 Pack years: 20.00 Types: Cigarettes Quit date: 10/14/1987 Years since quittin.9 Smokeless tobacco: Never Vaping Use Vaping Use: Never used Substance Use Topics Alcohol use: No Drug use: No EXAM: BP 124/80 Pulse 74 Resp 16 Wt 89 kg (196 lb 3.2 oz) BMI 28.97 kg/m General Appearance: Well appearing, alert, in no acute distress, well-hydrated, well nourished. and Overweight. Breast: left; no lumps or masses, no swollen glands, no drainage from nipple Back: tenderness to the left lower rib cage area and left side back Lungs: Lungs clear to auscultation. No wheezing, rhonchi, rales.. Heart: RRR without murmur, gallop, or rubs. No ectopy. Abdomen: Normal abdominal exam, Abdomen soft. Bowel sounds normal. No masses, organomegaly. Tenderness on palpation to the left side rib cage. Armpit: left; no lumps or masses, no drainage, no swollen glands Health Maintenance List ABDOMINAL AORTIC ANEURYSM SCREENING Never done BP CONTROLLED (<130/80) Never done SHINGRIX VACCINE(1 of 2) Never done PNEUMOCOCCAL: 65+(1 - PCV) Never done COVID-19 VACCINE(3 - Booster for Moderna series) due on 04/05/2021 DEPRESSION ASSESSMENT Never done INFLUENZA(1) due on 06/14/2022 HEPATITIS C SCREENING due on 03/15/2023 ANNUAL PCP TEAM CHRONIC DISEASE VISIT due on 03/15/2023 DIABETES SCREEN due on 03/14/2025 LIPID SCREEN due on 03/14/2027 COLORECTAL CANCER SCREENING due on 10/19/2029 DTAP,TDAP,TD(4 - Td or Tdap) due on 11/02/2031 ADVANCE DIRECTIVE DISCUSSION Completed Data reviewed None ASSESSMENT/PLAN: 1. Essential hypertension, benign - ICD9: 401.1, ICD10: I10 (primary diagnosis) - good control - Continue current medication(s) - Recommended regular aerobic exercise. - Recommend home blood pressure monitoring, to bring results in on next visit - Goal of BP <130/80 2. Nipple pain - ICD9: 611.71, ICD10: N64.4 Continue to monitor Follow up in 1 month to see how it is doing 3. Armpit pain, left - ICD9: 729.5, ICD10: M79.622 Continue to monitor F/u in 1 month to see how it is doing 4. Left lower quadrant abdominal pain - ICD9: 789.04, ICD10: R10.32 - possibly stress related - Continue to monitor, see if improves with Paxil 5. EVERETT (generalized anxiety disorder) - ICD9: 300.02, ICD10: F41.1 Start Paxil 10 mg daily Recommend counseling Follow up in 1 month. I agree with the Chief Complaint, ROS, and Past Histories independently gathered by the clinical technical support agent and the remaining scribed note accurately describes my personal service to the patient. Medical Decision Making: Problems: Low: Stable chronic illness Moderate: New problem with uncertain prognosis Risk: Moderate: Drug management Medical Decision Making Level: 4 - Moderate Crow Greenberg MD The documentation for this note was completed by Key Boswell Ma acting as scribe for Crow Greenberg MD. September 18, 2022 3:54 PM. Key Boswell Ma documented in this encounter [facility] 04-23-2022 Miscellaneous Notes Faxed recent PSA result to Dr. Sauceda, per B[facility] request. 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 Diverticulitis 02/19/2012 08/07/2016 Unspecified hemorrhoids without mention of compl ication 08/19/2009 08/07/2016 Anal fissure 07/25/2009 08/07/2016 Actinic keratosis 01/04/2009 08/07/2016 Other seborrheic keratosis 01/04/200908/07 SOLAR LENGINES///DYSCHROMIA OTHER 01/04/2009 08/07/2016 Other chronic dermatitis due to solar radiation 01/04/2009 08/07/2016 Dermatophytosis of groin and perianal area 02/0108/07/2016 Dermatophytosis of the body 02/02/200807/15 Contact dermatitis and other eczema due to other specified agent 02/02/2008 08/07/2016 Calcaneal spur 01/26/2008 08/07/2016 Pain in limb 01/26/2008 08/07/2016 Contact dermatitis and other eczema due to drugs and medicines in contact with skin 12/18/2007 08/07/2016 Dermatitis due to animal (cat) (dog) dander 03/200808/07/2016 Contact dermatitis and other eczema, due to unspecified cause 12/18/2007 08/07/2016 Unspecified pruritic disorder 12/18/2007 XEROSIS///SEBACEOUS GLAND DIS NEC 12/18/2007 08/07/2016 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/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 Other premature beats 11/27/2005 12/11/2018 Overview: start B-bob 10/19 Diarrhea 08/07/2016 documented as of this encounter (statuses as of 09/18/2022) [facility] History of Past illness Narrative* Problem Noted Date Resolved Date Dysuria 05/05/2015 08/07/2016 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, 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 Diverticulitis 02/19/2012 08/07/2016 Unspecified hemorrhoids without mention of compl ication 08/19/2009 08/07/2016 Anal fissure 07/25/2009 08/07/2016 Actinic keratosis 01/04/2009 08/07/2016 Other seborrheic keratosis 01/04/200908/07 SOLAR LENGINES///DYSCHROMIA OTHER 01/04/2009 08/07/2016 Other chronic dermatitis due to solar radiation 01/04/2009 08/07/2016 Dermatophytosis of groin and perianal area 02/0108/07/2016 Dermatophytosis of the body 02/02/200807/15 Contact dermatitis and other eczema due to other specified agent 02/02/2008 08/07/2016 Calcaneal spur 01/26/2008 08/07/2016 Pain in limb 01/26/2008 08/07/2016 Contact dermatitis and other eczema due to drugs and medicines in contact with skin 12/18/2007 08/07/2016 Dermatitis due to animal (cat) (dog) dander 03/200808/07/2016 Contact dermatitis and other eczema, due to unspecified cause 12/18/2007 08/07/2016 Unspecified pruritic disorder 12/18/2007 XEROSIS///SEBACEOUS GLAND DIS NEC 12/18/2007 08/07/2016 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/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 Other premature beats 11/27/2005 12/11/2018 Overview: start B-bob 10/19 Diarrhea 08/07/2016 documented as of this encounter (statuses as of 12/20/2022) [facility] History of Past illness Narrative* Problem Noted Date Diagnosed Date Resolved Date Dysuria 05/05/2015 08/07/2016 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, lateral 4 12/11/2018 Diverticulitis 02/19/2012 08/07/2016 Unspecified hemorrhoids with out mention of complication 08/19/2009 08/07/2016 Anal fissure 07/25/2009 08/07/2016 Actinic keratosis 01/04/2009 08/07/2016 Other seborrheic keratosis 01/04/2009 1 SOLAR LENGINES///DYSCHROMIA OTHER 01/04/2009 08/07/2016 Other chronic dermatitis due to solar radiation 01/04/2009 08/07/2016 Dermatophytosis of groin and perianal area 02/02/2008 08/07/2016 Dermatophytosis of the body 02/02/2008 08/07/2016 Contact dermatitis and other eczema due to other specified agent 02/02/2008 08/07/2016 Calcaneal spur 01/26/2008 08/07/2016 Pain in limb 01/26/2008 08/07/2016 Contact dermatitis and other eczema due to drugs and medicines in contact with skin 12/18/2007 08/07/2016 Dermatitis due to animal (cat) (dog) dander 12/18/2007 08/07/2016 Contact dermatitis and other eczema, due to unspecified cause 12/18/2007 08/07/2016 Unspecified pruritic disorder 12/18/2007 08/07/2016 XEROSIS///SEBACEOUS GLAND DIS NEC 12/18/2007 08/07/2016 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/09/2006 08/07/2016 Other premature beats 11/27/20052018 Overview: start B-bob 10/19 Diarrhea 08/07/2016 documented as of this encounter (statuses as of 06/01/2023) [facility] Essential hypertension, benign- Primary Nipple pain Mastodynia Armpit pain, left Left lower quadrant abdominal pain EVERETT (generalized anxiety disorder) Generalized anxiety disorder [facility] Essential hypertension, benign- Primary Hyperlipidemia, unspecified hyperlipidemia type EVERETT (generalized anxiety disorder) Generalized anxiety disorder [facility] Diagnosis Hordeolum externum of left upper eyelid- Primary Hordeolum externum documented in this encounter [facility] Discharge Instructions * Luis Daniel Hickey MD - 05/05/2018 Formatting of this note may be different from the original. Chest Pain: Care Instructions Your Care Instructions There are many things that can cause chest pain. Some are not serious and will get better on their own in a few days. But some kinds of chest pain need more testing and treatment. Your doctor may have recommended a follow-up visit in the next 8 to 12 hours. If you are not getting better, you may need more tests or treatment. Even though your doctor has released you, you still need to watch for any problems. The doctor carefully checked you, but sometimes problems can develop later. If you have new symptoms or if your symptoms do not get better, get medical care right away. If you have worse or different chest pain or pressure that lasts more than 5 minutes or you passed out (lost consciousness), call 911 or seek other emergency help right away. A medical visit is only one step in your treatment. Even if you feel better, you still need to do what your doctor recommends, such as going to all suggested follow-up appointments and taking medicines exactly as directed. This will help you recover and help prevent future problems. How can you care for yourself at home? Rest until you feel better. Take your medicine exactly as prescribed. Call your doctor if you think you are having a problem with your medicine. Do not drive after taking a prescription pain medicine. When should you call for help? Call 911 if: ? You passed out (lost consciousness). ? You have severe difficulty breathing. ? You have symptoms of a heart attack. These may include: Chest pain or pressure, or a strange feeling in your chest. Sweating. Shortness of breath. Nausea or vomiting. Pain, pressure, or a strange feeling in your back, neck, jaw, or upper belly or in one or both shoulders or arms. Lightheadedness or sudden weakness. A fast or irregular heartbeat. After you call 911, the filling machine operator may tell you to chew 1 adult-strength or 2 to 4 low-dose aspirin. Wait for an ambulance. Do not try to drive yourself. ?Call your doctor today if: ? You have any trouble breathing. ? Your chest pain gets worse. ? You are dizzy or lightheaded, or you feel like you may faint. ? You are not getting better as expected. ? You are having new or different chest pain. Where can you learn more? Log into your personal health record on https://Tallyfyt.Simparel and enter A120 in the Education box to learn more about Chest Pain: Care Instructions. Current as of: September 02, 2017 Content Version: 11.6 6598-0173 [employer] Care instructions adapted under license by your healthcare professional. If you have questions about a medical condition or this instruction, always ask your healthcare professional. [employer] disclaims any warranty or liability for your use of this information. Swollen Lymph Nodes: Care Instructions Your Care Instructions Lymph nodes are small, pittman-shaped glands throughout the body. They help your body fight germs and infections. Lymph nodes often swell when there is a problem such as an injury, infection, or tumor. The nodes in your neck, under your chin, or behind your ears may swell when you have a cold or sorethroat. An injury or infection in a leg or foot can make the nodes in your groin swell. Sometimes medicine can make lymph nodes swell, but this is rare. Treatment depends on what caused your nodes to swell. Usually the nodes return to normal size without a problem. Follow-up care is a erwin part of your treatment and safety. Be sure to make and go to all appointments, and call your doctor if you are having problems. It's also a good idea to know your test resultsand keep a list of the medicines you take. How can you care for yourself at home? Take your medicines exactly as prescribed. Call your doctor if you think you are having a problem with your medicine. Avoid irritation. Do not squeeze or pick at the lump. Do not stick a needle in it. Prevent infection. Do not squeeze, drain, or puncture a painful lump. Doing this can irritate or inflame the lump, push any existing infection deeper into the skin, or cause severe bleeding. Get extra rest. Slow down just a little from your usual routine. Drink plenty of fluids, enough so that your urine is light yellow or clear like water. If you have kidney, heart, or liver disease and have to limit fluids, talk with your doctor before you increase the amount of fluids you drink. Take an fiuk-hoc-fqgujnj pain medicine, such as acetaminophen (Tylenol), ibuprofen (Advil, Motrin),or naproxen (Aleve). Read and follow all instructions on the label. Do not take two or more pain medicines at the same time unless the doctor told you to. Many pain medicines have acetaminophen, which is Tylenol. Too much acetaminophen (Tylenol) can be harmful. When should you call for help? Call your doctor now or seek immediate medical care if: ? You have worse symptoms of infection, such as: Increased pain, swelling, warmth, or redness. Red streaks leading from the area. Pus draining from the area. A fever. ?Watch closely for changes in your health, and be sure to contact your doctor if: ? Your lymph nodes do not get smaller or do not return to normal. ? You do not get better as expected. Where can you learn more? Log into your personal health record on https://Tallyfyt.Simparel and enter A919 in the Education box to learn more about Swollen Lymph Nodes: Care Instructions. Current as of: August 31, 2017 Content Version: 11.6 9632-5547 [employer] Care instructions adapted under license by your healthcare professional. If you have questions about a medical condition or this instruction, always ask your healthcare professional. [employer] disclaims any warranty or liability for your use of this information. 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 Pt ambulatory with steady gait after declining wheelchair. Pt is alert and oriented x 4, respirations even and unlabored, skin is pink/warm/dry. No additional needs or concerns at this time. Pt ambulated to bathroom with this RN. No complications noted. Pt ambulated to bathroom with this RN. No complications noted. Formatting of this note may be different from the original. PCP - Physician No Chief Complaint Patient presents with Pain with breathing Chest Pain HPI 67-year-old male presents complaint of having and not the right side of his neck and when he takes inspiration he has a sharp pain shooting from this not down across his entire chest. It also hurts worse when he lies down and feels a little short of breath but he knows it is worse with deep breath.. Said no recent fevers or chills no symptoms like this before. No headache no blurred vision he denies particular sore throat no cough or sputum reduction. Does have some low back pain between cutting down trees this week. He was riding a lawnmower prior to the onset noticing this not. No abdominal pain nausea vomiting or diarrhea no numbness or weakness or tingling of his extremities. He is not on any anticoagulation he presents for evaluation Review of Systems All systems reviewed negative except as mentioned above. Past Medical History Past Medical History: Diagnosis Date Hypertension Past Surgical History Past Surgical History: Procedure Laterality Date CHOLECYSTECTOMY COLECTOMY HEMORRHOID SURGERY HERNIA REPAIR SALIVARY GLAND SURGERY Family History History reviewed. No pertinent family history. Social History Social History Social History Marital status: Spouse name: N/A Number of children: N/A Years of education: N/A Occupational History Not on file. Social History Main Topics Smoking status: Former Smoker Smokeless tobacco: Never Used Alcohol use No Drug use: No Sexual activity: Not on file Other Topics Concern Not on file Social History Narrative No narrative on file Allergies No Known Allergies Medications Mehran Merida Home Medication Instructions Prior to Surgery RONALDO:[id number] Printed on:05/04/18 6314 Medication Information Take last dose on Take the morning of surgery Comment(s) aspirin 81 mg chewable tablet Chew and Swallow 81 mg. fluticasone (FLONASE) 50 mcg/actuation nasal spray 2 sprays. lisinopril (PRINIVIL,ZESTRIL) 10 MG tablet TAKE 1 TABLET EVERY DAY methylcellulose oral powder Take by mouth. Physical Exam Initial Vital Signs BP (!) 165/94 (BP Location: Right arm, Patient Position: Sitting) Pulse 70 Temp 98.1 ?F (36.7 ?C) Resp 18 Ht 5' 9 Wt 90.7 kg (200 lb) SpO2 98% BMI 29.53 kg/m Vital Signs During ED Visit (as charted by nursing) Patient Vitals for the past 24 hrs: BP Temp Pulse Resp SpO2 Height Weight 05/04/18 2224 (!) 165/94 98.1 ?F (36.7 ?C) 70 18 98 % 5' 9 90.7 kg (200 lb) Physical Exam Constitutional: He appears well-developed and well-nourished. No distress. HENT: Head: Normocephalic and atraumatic. Right Ear: External ear normal. Left Ear: External ear normal. Nose: Nose normal. Mouth/Throat: Oropharynx is clear and moist. No oropharyngeal exudate. Eyes: Conjunctivae and EOM are normal. Pupils are equal, round, and reactive to light. Right eye exhibits no discharge. Left eye exhibits no discharge. No scleral icterus. Neck: Normal range of motion. Neck supple. There is a single 1 cm anterior chain mobile, tender lymph node right side. No stridor or wheeze or swelling no erythema no crepitus. Cardiovascular: Normal rate, regular rhythm and normal heart sounds. Exam reveals no gallop and no friction rub. No murmur heard. Pulmonary/Chest: Effort normal and breath sounds normal. No respiratory distress. He has no wheezes. He has no rales. Abdominal: Soft. Bowel sounds are normal. He exhibits no distension. There is no tenderness. There is no rebound and no guarding. Musculoskeletal: Normal range of motion. He exhibits no edema. Neurological: He is alert. No cranial nerve deficit. He exhibits normal muscle tone. Coordination normal. Skin: Skin is warm and dry. He is not diaphoretic. Psychiatric: He has a normal mood and affect. His behavior is normal. Nursing note and vitals reviewed. IMPRESSION/ ED COURSE Patient came in was evaluated as noted. He has a isolated mobile tender right cervical lymph node for the last day. Given his complaint of chest pain rating from this a CT angiogram of neck and CT dissection study was performed and is negative rapid strep seen is negative. D-dimer was weakly positive this was not tore a pain rating from this area is neck. But CT negative above troponin negative BMP unremarkable. CBC unremarkable. Suspect viral cervical lymphadenitis. Recommend warm compress only. Tylenol for pain or peripheral pain patient vomiting stronger and days not have any pain with laying down now after having had the Tylenol. He is safe for discharge. FINAL DIAGNOSIS SNOMED CT(R) 1. Cervical lymphadenitis CERVICAL LYMPHADENITIS 2. Non-cardiac chest pain NON-CARDIAC CHEST PAIN Labs Reviewed BASIC METABOLIC PANEL - Abnormal; Notable for the following: Result Value Glucose 101 (*) All other components within normal limits Narrative: The eGFR should be used for monitoring renal function only and not for medication dosing. D-DIMER, QUANTITATIVE - Abnormal; Notable for the following: D-Dimer 0.53 (*) All other components within normal limits Narrative: A D-dimer concentration of <0.5 micrograms per milliliter FEU is considered a low probability for pulmonary embolus (PE) and deep venous thrombosis (DVT). Results of this test should always be interpreted in conjunction with the patient's medical history,clinical presentation, and other findings. Clinical diagnosis should not be based on the results of the D-dimer alone. RAPID STREP SCREEN - Normal TROPONIN - Normal STREP A CULTURE, THROAT CBC AND DIFFERENTIAL Narrative: The following orders were created for panel order CBC w/ Diff. Procedure Abnormality Status --------- ------ CBC Auto Differential[[id number]] Final result Please view results for these tests on the individual orders. CBC WITH AUTO DIFFERENTIAL Radiographic Imaging (if any) During ED Visit CT Dissection With Pelvis Final Result 1. No acute abnormality. There is no evidence of aortic aneurysm or dissection. No evidence of pulmonary embolism. 2. Chronic surgical findings as otherwise noted. SZD/rlc Workstation ID: [id number] CT Angiogram Neck Preliminary Result 1. No hemodynamically significant cervical carotid or vertebral arterial stenosis or occlusion. No dissection or aneurysm. BDZ/hff Workstation ID: [id number] Medications Ordered/Given During ED Visit Medications sodium chloride (PF) (NS) flush 5 mL (not administered) sodium chloride 0.9% (NS) bolus 500 mL (not administered) sodium chloride 0.9% (NS) (not administered) Procedures Luis Daniel Hickey MD 05/05/18 0403 Associated Order(s): ECG 12-LEAD EKG 12-lead Date/Time: 05/04/2018 11:45 PM Performed by: LUIS DANIEL HICKEY Authorized by: EMERGENCY, TRIAGE PROTOCOL Interpreted by ED attending physician Previous ECG: no previous ECG available Rhythm: sinus rhythm BPM: 72 Conduction: incomplete RBBB ST Segments: ST segments normal T Flattening: V2 normal TX interval normal QRS interval normal QT interval Other findings: low voltage Clinical impression: non-specific ECG and low voltage Pt c/o knot to right side of neck, pt sts it hurts when I take a deep breath down my neck and into my chest pt denies SOB or diff breathing. Pt sts started this evening. Pt is c/o knot to R side of neck this beginning this afternoon. 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 Pt reporting pain from neck to chest when taking a deep breath. Pt reporting chest tightness with deep breath as well. 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 Pt denies difficulty swallowing. Pt is a/o x3. RR Non labored.in this encounter (unrecognized sect ion and content) No Status Records FoundNo Status Records Found INFORMATION SOURCE (unrecogn ized section and content) DATE CREATED AUTHOR AUTHOR'S MADAN ATION 09/30/2023 [facility] Source Comments (unrecognize d section and content) In the event this informatio n is protected by the Federal Confidentiality of Alcohol and Drug Abuse Patient Records regulations: The Federal rules restrict any use of the information to criminally investigate or prosecute any alcohol or drug abuse patient.[facility] the event this information is protected by the Federal Confidentiality of Alcohol and Drug Abuse Patient Records regulations: The Federal rules restrict any use of the information to criminally investigate or prosecute any alcohol or drug abuse patient.[facility] the event this information is protected by the Federal Confidentiality of Alcohol and Drug Abuse Patient Records regulations: The Federal rules restrict any use of the information to criminally investigate or prosecute any alcohol or drug abuse patient.[facility] the event this information is protected by the Federal Confidentiality of Alcohol and Drug Abuse Patient Records regulations: The Federal rules restrict any use of the information to criminally investigate or prosecute any alcohol or drug abuse patient.[facility] Reason for Visit (unrecogniz ed section and content) Reason Comments 6 Month Exam Reason Comments Follow Up Medication follow up Reason Comments Eye Problem left upper eyelid sw ollen and red x 10 days Care Teams (unrecognized sec tion and content) 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 This clinical summary was aggregated from multiple sources. Caution should be exercised in using it in the provision of clinical care. This summary normalizes information from multiple sources, and as a consequence, information in this document may materially change the coding, format and clinical context of patient data. In addition, data may be omitted in some cases. CLINICAL DECISIONS SHOULD BE BASED ON THE PRIMARY CLINICAL RECORDS. [facility]. provides no warranty or guarantee of the accuracy or completeness of information in this document.
--- NOTE | 2023-10-18 22:25 | EDS_ITS ---
HPI History of Present Illness Chief Complaint: Chest Pain Informant: patient and spouse/S.O. Narrative Narrative: Patient is a 73-year-old male with past medical history of hypertension. He states that over the past 3 days he has been having intermittent chest d iscomfort which she states occurs in the left lower chest he will also feel pain along the right and left shoulder blades and slightly around the left sided flank/abdomen. He states the pain can come on while at rest or with activity. He states it is more sharp in nature he denies any nausea vomiting diaphoresis or shortness of breath associated with this. He states the pain seems to be in multiple locations and that it does not radiate. He states the pain will last anywhere from a few seconds approximately 10 minutes and then resolved. He states that since it has been recurrent he decided to come in for evaluation [facility] Medical History Abdominal pain Anal pain Back pain Cancer Chest pain COVID Former smoker Hemorrhoids History of anal fissures History of diverticulitis History of irregular heartbeat History of stress test Hx of vertigo Hypertension Prostate disease Shortness of breath on exertion Wears dentures Wears glasses Home Medications methylcellulose (laxative) (Citrucel Sugar Free oral powder) 1,000 mg PO DAILY 11/14/18 [History Last Taken 12/13/18] amlodipine 5 mg tablet 5 mg PO DAILY 10/05/19 [History Last Taken 11/29/21] acetaminophen 500 mg tablet (Tylenol Extra Strength) 1,000 mg PO Q6H PRN pain 01/15/22 [History Last Taken Unknown] Allergy/AdvReac Type Severity Reaction Status Date / Time lisinopril Allergy Angioedema Verified 10/18/23 21:31 Family History Mother Cancer Brother Cancer Surgical History H/O colonoscopy History of colon surgery History of inguinal hernia repair Hx of biopsy Hx of bladder repair surgery S/P hemorrhoidectomy S/P laparoscopic cholecystectomy Social History Smoking Status: Former smoker alcohol intake: never substance use type: does not use ROS ROS ED Constitutional Constitutional ED: Denies chills or fever(s) Eyes Eyes: Denies change in vision ENT ENT ED: Denies sore throat Cardiovascular Cardiovascular: Reports chest pain; Denies palpitations or racing heartbeat Respiratory/Chest Respiratory/Chest: Denies cough or dyspnea Gastrointestinal Gastrointestinal: Denies abdominal pain, diarrhea, nausea or vomiting Genitourinary Genitourinary ED: Denies dysuria or hematuria Musculoskeletal Musculoskeletal: Denies myalgias Integumentary Denies rash Neurologic Neurologic: Denies headache(s) Hematologic/Lymphatic Hematologic/Lymphatic: Denies easy bleeding or easy bruising EXAM Physical Exam Const Vital Signs: 10/18/23 21:30 10/18/23 22:40 10/18/23 22:40 Temperature 98 F Temperature Source Temporal Pulse Rate 79 80 Respiratory Rate 16 16 Blood Pressure 165/94 H 158/99 H Blood Pressure Mean 117 118 Pulse Ox 96 95 95 Oxygen Delivery Method Room Air Room Air Room Air 10/18/23 23:53 10/19/23 01:30 Temperature Temperature Source Pulse Rate 77 67 Respiratory Rate 14 19 H Blood Pressure 138/89 H 138/89 H Blood Pressure Mean 105 105 Pulse Ox 96 99 Oxygen Delivery Method Room Air Positive well nourished and well developed General Appearance ED: well developed HEENT HEENT Narrative: Normocephalic atraumatic Eyes PERRL and EOMs intact bilaterally General Eye ED: Negative for scleral icterus Neck supple Chest Wall palpation of chest normal Chest Narrative: No bony deformity or crepitance noted Resp normal respiratory effort and clear to auscultation bilaterally Cardio regular rate and regular rhythm Rate: other Other Details: Heart is regular rate and rhythm without murmurs rubs or gallops Radial and carotid pulses are equal and symmetric GI normal to inspection, nondistended, normoactive bowel sounds, non-tender, non- distended and no masses GI Narrative: No voluntary guarding or rigidity No pulsatile mass or fluid wave Auscultation: normoactive bowel sounds Palpation: soft Back/Spine no CVA tenderness Extremity normal to inspection Extremity Narrative: No asymmetric edema no pitting edema negative Homans' sign bilaterally Neuro oriented x3, CN's II-XII intact bilaterally and no sensory deficits noted Sensorium / Orientation: alert Motor Exam: strength 5/5 throughout Psych mental status grossly normal Skin no rashes or lesions noted Skin Narrative: No overlying soft tissue changes to suggest trauma or infection General Skin Exam: Negative for jaundice MDM MDM MDM Narrative Medical decision making narrative: Patient presented to the ER mildly hypertensive but has a past medical history of this and otherwise with stable vitals. He reported atypical chest pain over the last few days that was intermittent in nature. Differential diagnosis is for acute coronary syndrome versus cardiac arrhythmia versus pneumonia versus ac [place] kidney injury versus electrolyte abnormality. Basic blood work was obtained which revealed no clinically significant findings with stable normal troponins. Chest x-ray also revealed no acute lung pathology. Patient remained hemodynamically stable in the ER and was chest pain-free on evaluation and therefore as he has had atypical chest pain with a negative workup I do not feel he needs to be evaluated further in the hospital and can follow-up on an outpatient basis. History & Record Review Discussion w/independent historian: Patient and Significant other Lab Data Attestation: I reviewed the patient's lab results. Labs: Laboratory Results - last 24 hr 10/18/23 10/19/23 22:22 00:14 WBC 7.9 RBC 5.07 Hgb 14.9 Hct 45.7 MCV 90.1 MCH 29.4 MCHC 32.6 RDW Std Deviation 45.8 H RDW Coeff of Adrian 13.8 Plt Count 196 MPV 9.5 Immature Gran % (Auto) 0.400 Neut % (Auto) 58.2 Lymph % (Auto) 30.2 [place] % (Auto) 7.2 Eos % (Auto) 3.4 Baso % (Auto) 0.6 Absolute Neuts (auto) 4.6 Absolute Lymphs (auto) 2.39 Nucleated RBC % 0 D-Dimer Quant (PE/DVT) 0.33 Sodium 142 Potassium 3.8 Chloride 108 H Carbon Dioxide 32.0 Anion Gap 2 L BUN 12 Creatinine 0.97 Estim Creat Clear Calc 68.84 Est GFR (MDRD) Af Amer 98 Est GFR (MDRD) Non-Af 81 BUN/Creatinine Ratio 12.4 Glucose 95 Calcium 8.7 Magnesium 2.3 Troponin I High Sens 6 5 Radiography Diagnostic Testing: Clinical Impression(s) from Imaging Studies Chest X-Ray 10/18/23 22:52 IMPRESSION: No evidence of acute cardiopulmonary disease. Electronically Signed: Chava Grady DO at 23:32 EST , Chest x-ray as interpreted by the emergency medicine physician reveals no acute infiltrate pneumothorax pleural effusion or widening of the mediastinum Discharge Plan Triage Chief Complaint: Chest Pain ED Provider: Magdi Israel Dx/Rx/DC Orders Clinical Impression: Nonspecific chest pain, History of diverticulitis, Hypertension Instructions: ED Chest Pain, Uncertain Cause Prescriptions: No Action Citrucel Sugar Free powder 1,000 mg PO DAILY acetaminophen [Tylenol Extra Strength] 500 mg tablet 1,000 mg PO Q6H PRN (Reason: pain) amlodipine 5 MG tablet 5 mg PO DAILY Primary Care Provider: Abdoulaye Barber Referrals: Abdoulaye Barber MD [Primary Care Provider] - Activity Restrictions/Additional Instructions: Your workup revealed no signs of active cardiac damage or lung pathology. Continue all your home medications as directed by your doctor and follow-up with them to discuss potential cardiology referral or further outpatient testing and return to the ER should you have any further concerns Disposition Disposition: Home, Self Care Discharge Date/Time: 10/19/23 01:30
[2023-10-18 22:35] LABS: Absolute Lymphocyte Count 2.39 X10^3/uL (0.83-4.51); Absolute Neutrophil Count 4.6 X10^3/uL (2.0-7.7); Basophil# 0.05 X10^3/uL; Basophil% 0.6 % (0-1); Eosinophil# 0.27 X10^3/uL; Eosinophils% 3.4 % (0-5); Hematocrit 45.7 % (40-54); Hemoglobin 14.9 g/dL (13.0-16.5); Lymphocyte # 2.39 X10^3/ul (0.83-4.51); Lymphocyte % 30.2 % (19-41); Mean Corp Hgb Conc 32.6 g/dL (32-36); Mean Corpuscular Hgb 29.4 pg (27.0-32.0); Mean Corpuscular Volume 90.1 fL (80-94); Mean Platelet Vol. 9.5 fl (6.2-12.0); Monocyte# 0.57 X10^3/uL; Monocyte% 7.2 % (0-10); NRBC Flagged by Analyzer 0 % (0-5); Neutrophil # 4.61 X10^3/uL (2.7-7.7); Neutrophil % 58.2 % (47-70); Platelet Count 196 K/mm3 (150-450); RBC Distribution Width CV 13.8 % (11.6-14.6); RBC Distribution Width SD 45.8 fl (35.1-43.9); Red Blood Count 5.07 M/mm3 (4.6-6.2); White Blood Count 7.9 K/mm3 (4.4-11.0)
[2023-10-18] MEDS: Aspirin 325 MG Tablet PO (22:37)
[2023-10-18 22:40] VITALS: BP 158/99; PULSE 80; RESP 16; O2SAT 95
[2023-10-18 22:46] LABS: D-Dimer Quantitative (DVT/PE) 0.33 FEU/ug/m (0.27-0.49)
--- NOTE | 2023-10-18 22:52 | RAD_ITS ---
INDICATION: chest pain EXAMINATION/TECHNIQUE: X-RAY - XR Chest 2 Views COMPARISON: 12/05/2022. FINDINGS: Stable elevation of the left hemidiaphragm. LINES/DEVICES: None. LUNGS: No consolidation or evidence of an effusion. No evidence of edema or a pneumothorax. MEDIASTINUM AND CARDIOVASCULAR STRUCTURES: Cardiac silhouette not well-visualized. Mediastinum is unremarkable. BONES AND SOFT TISSUES: No acute abnormality. RAD/Chest PA and Lateral IMPRESSION: No evidence of acute cardiopulmonary disease. Electronically Signed: Chava Grady DO at 23:32 EST ,
[2023-10-18 22:53] LABS: Anion Gap 2 (5-15); BUN 12 mg/dL (7-18); BUN/Creat Ratio 12.4 RATIO (10-20); Calcium,Total 8.7 mg/dL (8.5-10.1); Chloride 108 mmol/L (98-107); Creatinine, Serum 0.97 mg/dL (0.70-1.30); EST Glomerular Filtration Rate 81 mL/min (>60); Est Glom Filt Rate - Afr Amer 98 mL/min (>60); Estimated Creatinine Clearance 68.84 ml/min; Glucose 95 mg/dL (74-106); Magnesium 2.3 mg/dL (1.6-2.6); Potassium 3.8 mmol/L (3.5-5.1); Sodium Level 142 mmol/L (136-145); Troponin-I HS (w/2H Reflex) 6 pg/mL (3.0-78.0)
[2023-10-18 23:53] VITALS: BP 138/89; PULSE 77; RESP 14; O2SAT 96
[2023-10-19 00:31] LABS: Reflex Troponin-HS? (from REC) Y
[2023-10-19 00:58] LABS: Troponin-I HS 5 pg/mL (3.0-78.0)
[2023-10-19 01:30] VITALS: BP 138/89; PULSE 67; RESP 19; O2SAT 99
== END 2023-10-19 01:30 | disposition home or self-care (01) ==
PROVIDERS: Emergency Medicine; Emergency Provider Emergency Medicine; PCP Family Medicine; Visit Provider Emergency Medicine
DX: R07.9 Chest pain, unspecified (principal); Z87.891 Personal history of nicotine dependence; I10 Essential (primary) hypertension; Z87.19 Personal history of other diseases of the digestive system; Z85.9 Personal history of malignant neoplasm, unspecified; Z90.49 Acquired absence of other specified parts of digestive tract
CPT/HCPCS: 71046; 80048; 83735; 84484; 85025; 85379; 93005; 99284; A4216

== ENCOUNTER 2024-02-24 12:00 | Outpatient (RCR) | payer MEDICARE, SELFPAY ==
--- NOTE | 2024-01-30 16:56 | HP.OTEVAL ---
Patient's Visit Information Visit Information Visit Information: MEHRAN HALE is a 73 year old M, referred to Occupational Therapy by ORA Fernandez, with a diagnosis of unil primary osteoarthritis of first carpometacarpal joint R hand. Date of Evaluation: 01/21/24 Occupational Therapist: Alanis Balderas Subjective Subjective: This male pt arrives this date with completion of R UE CMC arthroplasty with trapezium excision ligament reconstruction tendon interposition utilizing flexor carpi radialis tendon transfer complete December 17 2023. Doctor visit last week for stitches to be taken out. Pt is R hand dominant. Pt failed conservative management in which he had pain for 3-4 years. 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 hobbies include using power tools. Pain R hand: Current Pain Intensity: 2 Pain Intensity Range: 2 Objective Objective/Observation: pt arrives with cast on R arm re applied after doctor visit last week for stitches to be taken out. ROM Shoulder: L and R wfl Elbow: L and R wfl Forearm: L and R wfl Wrist: L wfl R 30/15 CMC: L wfl R 0/10 MP: L wfl R 0/10 IP: L wfl R 0/5 Opposition: to D3 unable to get to D4 Strength Compliance Lead: L 60 Lateral Pinch: L 15 Tripod Pinch: L 15 Strength Comments: unable to assess with R hand at this time Edema Wrist: L 18.5 R 20 Other: R MCP 21.5 L 21 cm Sensation Proprioception: Normal - Left Sensation Comments: denies numbness or tingling Quick DASH-Disab of Arm,Shoulder& Hand Quick DASH Score: 54.5450 Goals Goal:100% adherence to protocol: Yes Comment: Dr anderson Goal:Daily scar massage when approriate: Yes Goal:ROM equal to unaffected hand: Yes Goal:Compliance Lead/Pinch strength at least 75% of unaffected hand: Yes Comment: will not initiate until week 6/ after Goal:No pain with affected hand use: Yes Goal:Full use of affected hand in daily activities including work: Yes Goal:Decrease scar hypersensitivity: Yes Other Goal: pt will improve quick dash score by 20 points or more within 6 weeks in order to return to everyday functioning tasks Rehabilitation Rehabilitation Potential: Good Anticipated Interventions Anticipated Interventions: A/AAROM/PROM, Strengthening, Edema Control, Scar Care, Massage, Triggerpoint Release, Desensitization, Modalities, Orthoses, Joint Protection/Energy Conservation, Fine Motor Coord/Luis, ADL Training, Education re Diagnosis, Education re Skin Care and Precautions, Education re Self Massage Techniques and Home Program Visit Plan Frequency: 2x /Week Duration: 6 Weeks General Plan: Spittle Week 6 remove pin Re-form orthosis so that MCPJ is held in 20* to 30* flexion Begin motion of MCP joint with orthosis off but with exercise off but with exercise orthosis (finger of 8 or oval 8 orthosis) in place IPJ should be allowed full motion and MCPJ should be allowed full flexion. Avoid stretching the volar plat or stretching the thumb into abduction at the web space Week 8 wean MCPJ from thumb spica orthosis. Fabricate hand-based orthosis to hold MCPJ in 20* flexion (or use orthosis that was employed as exercise orthosis for daily activities) choice depends on activity level of pt. Week 10 Begin light isometric strengthening exercises 2x/day within pain tolerance Practice gripping abound objects of various circumferences in various positions with small orthosis for MCPJ in place Week 12 use hand-based orthosis only for high-demand activities Week 16 d/c use of orthosis if MCPJ is stable at 0* or greater in resting position (NO Hyperextension) TEXT: Thank you for the opportunity to evaluate your patient. For Medicare and Medicare HMO plans, please review the plan of care and approve it. It will need to be FAXED BACK to us at [phone] for Medicare purposes. Please let me know if there are questions or concerns regarding this plan of care. Physician Signature: Date:
--- NOTE | 2024-02-12 10:28 | HP.OTREVAL ---
Re-Evaluation Intro: ORA Fernandez, It has been my pleasure to treat MEHRAN HALE over the last 7 visits for unil primary osteoarthritis of first carpometacarpal joint R hand. Please see the progress note below for an update on the occupational therapy plan of care! 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 4# R tripod pinch 0# Plan Plan Frequency: 2x /Week Duration: 6 Weeks Goals Goals Patient Goals: Regain Mobility, Regain Strength, Decrease Pain, Return to Work, Decrease Swelling/Stiffness, Improve Fine Motor Skills, Use Hand/Wrist/Arm Normally Again, Sleep Better, Increase ROM, Be More Independent in ADLS, Decrease Sensitivity, Resume Former Household Responsibilities (Cooking,Cleaning,Yard, etc.) and Resume Hobbies Goal:100% adherence to protocol: Yes Goal:Daily scar massage when approriate: Yes Goal:ROM equal to unaffected hand: Yes 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/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 strength at least 75% of unaffected hand: Yes Goal:No pain with affected hand use: Yes Goal:Full use of affected hand in daily activities including work: Yes Goal:Decrease scar hypersensitivity: Yes Other Goal: pt will improve quick dash score by 20 points or more within 6 weeks in order to return to everyday functioning tasks Anticipated Interventions Anticipated Interventions Anticipated Interventions: A/AAROM/PROM, Strengthening, Edema Control, Scar Care, Massage, Triggerpoint Release, Desensitization, Modalities, Orthoses, Joint Protection/Energy Conservation, Fine Motor Coord/Luis, ADL Training, Education re Diagnosis, Education re Skin Care and Precautions, Education re Self Massage Techniques and Home Program Re-Evaluation Ending Re-evaluation ending: Please do not hesitate to contact me at [phone] by phone or if you have questions or concerns regarding this new plan of care! Sincerely, Alanis Balderas
--- NOTE | 2024-02-24 12:32 | HP.OTDCSUM ---
Discharge Summary D/C Summary: It has been my pleasure to treat MEHRAN HALE under orders from ORA Fernandez, for the diagnosis of unil primary osteoarthritis of first carpometacarpal joint R hand for a total of 10 visit(s). Please see the following information for a summary of their discharge status. Overall Improvement % Improvement: 70 Objective Objective/Function: R IP flexion 40 from 35 R MP flexion 35 from 30 R CMC flexion 10* pt can perform opposition to LF PIP crease. 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 pt does agree to cont. with his thumb stabilization tasks. 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 d/c sentence: If there are questions or concerns regarding this patient's occupational therapy, please fell free to call me at [phone]. Thank you for the referral of this patient. Sincerely, Barbra Wilson, OTR/L, CHT
== END 2024-02-24 19:00 | disposition home or self-care (01) ==
LOC: OT 12:00
PROVIDERS: PCP Family Medicine; Referring Provider Physician Assistant Surgical; Visit Provider Physician Assistant Surgical
DX: M18.11 Unilateral primary osteoarthritis of first carpometacarpal joint, right hand (principal)
CPT/HCPCS: 97035; 97110; 97140; 97166; 97530; 97760

== ENCOUNTER 2024-12-22 08:30 | Outpatient (RCR) | payer MEDICARE, SELFPAY ==
--- NOTE | 2024-12-08 13:49 | HP.PTEVAL_ITS ---
Patient's Visit Information Visit Information Visit Information: MEHRAN HALE is a 74 year old M referred to Physical Therapy by ORA Rodriguez with a diagnosis of thoracic radic. Date of Evaluation: 12/08/24 Physical Therapist: BART Rucker Visit Plan Frequency: 2x /Week Duration: 6 Weeks Plan: Pt struggles with vertigo and laying down... he can do it but needs to go slowly 2X/ week for 6 weeks for light thoracic extension mobs, trunk AROM, postural strength, core strength with HEP HEP: prone on elbows, over the chair thoracic stretch, standing with wand behind back rotation stretches to each side gently Subjective Subjective: Pt reports that he has mid back pain for about 3 months. He had something there for a long time but worse the last 3 months. He reports that it is a dull pain with sharp pain once in awhile. Pain is on the bottom ribs and then radiates to the flank area and gets a spasm B. He has muscle relaxers and Tylenol and IBprof but causes him to be sleepy. He has no N&T. He is able to sleep through the night. Sitting not good for long period of time. He can bend just fine. When he lays on the L side he feels like he has a knot along the ribs. They did x-rays and did not show much. He will schedule and MRI today. Pain is 7/10 at its worst. He did Chiropractor yesterday and he felt a little better today Pain thoracic pain: Pain Intensity (Out of 10): 0 Objective Objective: LE MMT: B hip flex 15.5 R shoulder flex 12.9 and L 15 Trunk AROM: flex 50%, ext 10%, Rot B 50% with increase pain loni to the L, SB B 50% with increase pain Rotation B not good worse on the L than the R neck ext 10% thoracic mobs in prone: were sore to do but did help (increase radiating pain to the ribs with pressure and then just thoracic pain when release the pressure) thoracic extension over chair with towel roll 3 X 10 and then 2 X 10 at the end of treatment. Improved Trunk Rotation B (still worse on the L with increase pain but improved). Pt felt better after stretches and MT today... Balance/Special Test Scores Oswestry Low Back Score: 10 Goals Goal 1:: I HEP Goal Time Frame: 6-8 Weeks Goal 2:: Decrease thoracic and rib pain by 50% Goal Time Frame: 6-8 Weeks Goal 3:: Be able to rotate trunk the L without having rib/flank pain Goal Time Frame: 6-8 Weeks Rehabilitation Potential Rehabilitation Potential: Good Anticipated Interventions Patient/Client Instruction: Educate patient on: Condition and Plan of Care For the Purpose of:: To decrease pain, To increase ROM, To improve nutrient delivery to tissue, To improve muscle performance and motor function, To improve ability to perform ADL's, To improve performance and independence with ADL's, To decrease level of supervision to perform tasks, To improve ability of physical actions for home/community/work/leisure, To improve health of tissue, To decrease soft tissue restriction and To increase flexibility/ROM Therapeutic Exercise to Include: Strength training, Endurance training, Postural training, Flexibilty training, Neuromotor development, Passive ROM, Active ROM, Dynamic Lumbar Stabilization and Scapular Strength/Stabilization For the Purpose of:: To decrease pain, To increase ROM, To improve nutrient delivery to tissue, To improve muscle performance and motor function, To improve ability to perform ADL's, To increase tolerance to activity/condition/position, To improve performance and independence with ADL's, To decrease level of supervision to perform tasks, To improve ability of physical actions for home/community/work/leisure, To improve gait and locomotor functions, To improve health of tissue, To decrease soft tissue restriction and To increase flexibility/ROM Manual Therapy Techniques to Include: Mobilization, Passive ROM and Soft tissue mobilization For the Purpose of:: To decrease pain, To increase ROM, To improve nutrient delivery to tissue, To improve muscle performance and motor function, To improve ability to perform ADL's, To increase tolerance to activity/condition/position, To improve performance and independence with ADL's, To decrease level of supervision to perform tasks, To improve health of tissue, To decrease soft tiss ue restriction and To increase flexibility/ROM Cryotherapy (ice pack, ice massage): Yes Thermo therapy (hot pack): Yes For the Purpose of:: To decrease pain, To increase ROM and To improve nutrient delivery to tissue Text: Thank you for the opportunity to evaluate your patient. For Medicare and Medicare HMO plans, please review the plan of care and approve it. It will need to be FAXED BACK to us at [phone] for Medicare purposes. For Medicare only, by signing this I certify the plan of care. Please let me know if there are questions or concerns regarding this plan of care. Physician Signature: Date:
--- NOTE | 2025-07-13 08:58 | HP.PT.NRP ---
Patient Information Patient Information: MEHRAN HALE was seen in my office for initial evaluation on 12/08/24. The following Plan of Care was established for this patient: POC Established Initial Frequency: 2x /Week Initial Duration: 6 Weeks Anticipated Interventions Patient/Client Instruction: Educate patient on: Condition and Plan of Care For the Purpose of:: To decrease pain, To increase ROM, To improve nutrient delivery to tissue, To improve muscle performance and motor function, To improve ability to perform ADL's, To improve performance and independence with ADL's, To decrease level of supervision to perform tasks, To improve ability of physical actions for home/community/work/leisure, To improve health of tissue, To decrease soft tissue restriction and To increase flexibility/ROM Therapeutic Exercise to Include: Strength training, Endurance training, Postural training, Flexibilty training, Neuromotor development, Passive ROM, Active ROM, Dynamic Lumbar Stabilization and Scapular Strength/Stabilization For the Purpose of:: To decrease pain, To increase ROM, To improve nutrient delivery to tissue, To improve muscle performance and motor function, To improve ability to perform ADL's, To increase tolerance to activity/condition/position, To improve performance and independence with ADL's, To decrease level of supervision to perform tasks, To improve ability of physical actions for home/community/work/leisure, To improve gait and locomotor functions, To improve health of tissue, To decrease soft tissue restriction and To increase flexibility/ROM Manual Therapy Techniques to Include: Mobilization, Passive ROM and Soft tissue mobilization For the Purpose of:: To decrease pain, To increase ROM, To improve nutrient delivery to tissue, To improve muscle performance and motor function, To improve ability to perform ADL's, To increase tolerance to activity/condition/position, To improve performance and independence with ADL's, To decrease level of supervision to perform tasks, To improve health of tissue, To decrease soft tissue restriction and To increase flexibility/ROM Cryotherapy (ice pack, ice massage): Yes Thermo therapy (hot pack): Yes For the Purpose of:: To decrease pain, To increase ROM and To improve nutrient delivery to tissue Last Seen Last Seen: This patient was last seen in our office 12/22/24. Pertinent comments regarding their Physical therapy will appear below: [facility] PT At this point I will be discontinuing this patient from physical therapy. I would be happy to see this patient again in the future if found appropriate by the physician. Thank you! Lisbet Matthews, BART Balance/Gait/Functional tests Balance/Special Test Scores Oswestry Low Back Score: 10
== END 2024-12-22 19:00 | disposition home or self-care (01) ==
LOC: PT 08:30
PROVIDERS: PCP Family Medicine; Referring Provider Student in an Organized Health Care Education/Training Program; Visit Provider Student in an Organized Health Care Education/Training Program
DX: M54.14 Radiculopathy, thoracic region (principal)
CPT/HCPCS: 97110; 97161

== ENCOUNTER → 2025-01-06 | Outpatient (CLI) | payer MEDICARE, SELFPAY ==
--- NOTE | 2025-01-06 07:38 | MRI_ITS ---
EXAM: MRI of the thoracic spine without contrast. CLINICAL HISTORY: Chronic back pain. COMPARISON: Thoracic spine radiographs, two views, dated December 04, 2024. TECHNIQUE: Multiplanar multisequence noncontrast MR imaging of thoracic spine was obtained. FINDINGS: There is no evidence of compression fracture. Posterior elements are intact. No suspicious marrow infiltrative or destructive lesion is seen. A tiny sub endplate lipomas noted along the inferior aspect of the T9 vertebral body. Mild age-related disc desiccation is seen at all levels. No significant posterior disc protrusion or bulge is identified at any level, however. Facet joints are unremarkable for age. Spinal canal and neural foramina are widely patent at all levels. Thoracic spinal cord is normal in signal intensity and caliber. No immediate paraspinous mass lesion or fluid collection is identified. Again incidentally noted is marked elevation of the left hemidiaphragm. MRI/Spine Thoracic (Routine) IMPRESSION: Minor degenerative changes only. No evidence of herniated nucleus pulposis. N o evidence of spinal stenosis. Reading Location: [place] [id number]
== END | disposition home or self-care (01) ==
LOC: MRI 07:33
PROVIDERS: PCP Family Medicine; Referring Provider Student in an Organized Health Care Education/Training Program; Visit Provider Student in an Organized Health Care Education/Training Program
DX: M54.14 Radiculopathy, thoracic region (principal)
CPT/HCPCS: 72146

== ENCOUNTER 2025-07-06 10:24 | Emergency (ER) | payer MEDICARE, SELFPAY ==
[2025-07-06 10:24] VITALS: BP 168/110; PULSE 84; RESP 20; TEMP 37.2; O2SAT 99; BMI 28.8
--- NOTE | 2025-07-06 10:50 | EX.ED.DYSGE1 ---
HPI History of Present Illness Chief Complaint: Other, Pain/Inj Detail of Chief Complaint: Lightheadedness and cold symptoms Informant: patient Narrative Narrative: Patient presents to the emergency room with complaint of feeling lightheaded for about 2 weeks. He states that he has history of vertigo and started having vertigo symptoms 2 weeks ago. He then subsequently 8 days ago developed cold symptoms with cough and sore throat and low-grade fever. He was coughing up some green phlegm that is now become more clear. He just does not feel well. He complains of some bodyaches. Patient concerned about dehydration although he has been eating and drinking normally and he has not had any diarrhea. [facility] Medical History COVID Wears glasses Wears dentures Cancer Prostate disease Back pain Hx of vertigo History of diverticulitis Former smoker Shortness of breath on exertion History of stress test History of irregular heartbeat History of anal fissures Anal pain Abdominal pain Hemorrhoids Chest pain Hypertension Home Medications ?Medication ?Instructions ?Recorded ?Last Taken ?Type methylcellulose (laxative) 1,000 mg PO DAILY 11/14/18 12/13/18 History (Citrucel Sugar Free oral powder) amlodipine 5 mg tablet 5 mg PO DAILY 10/05/19 11/29/21 History acetaminophen 500 mg tablet 1,000 mg PO Q6H PRN pain 01/15/22 Unknown History (Tylenol Extra Strength) cyclobenzaprine 5 mg tablet 5 mg PO TID PRN muscle spasm #30 12/04/24 Unknown Rx tabs loratadine 10 mg tablet (Claritin) 10 mg PO QDAY 02/05/25 Unknown History Allergy/AdvReac Type Severity Reaction Status Date / Time lisinopril Allergy Angioedema Verified 02/05/25 08:52 Family History Mother Cancer Brother Cancer Surgical History Hx of bladder repair surgery Hx of biopsy S/P hemorrhoidectomy H/O colonoscopy History of inguinal hernia repair History of colon surgery S/P laparoscopic cholecystectomy Social History Smoking Status: Former smoker alcohol intake: never substance use type: does not use ROS ROS ED Review of Systems ROS Unobtainable: other Constitutional Constitutional ED: Reports lethargy; Denies chills, fever(s), sweats or weight loss Eyes Eyes: Denies blurry vision, change in vision or diplopia ENT ENT ED: Denies rhinorrhea or sore throat Cardiovascular Cardiovascular: Reports chest pain and racing heartbeat; Denies orthopnea Respiratory/Chest Respiratory/Chest: Reports cough and sputum; Denies dyspnea, dyspnea on exertion or orthopnea Gastrointestinal Gastrointestinal: Denies abdominal pain, diarrhea, nausea or vomiting Genitourinary Genitourinary ED: Denies dysuria, hematuria or urinary frequency Musculoskeletal Musculoskeletal: Reports myalgias; Denies arthralgias, back pain or neck pain Integumentary Denies abscess, Abrasions or rash Neurologic Neurologic: Reports weakness; Denies headache(s) Psychiatric Psychiatric: Denies anxiety, depression or suicidal thoughts Endocrine Endocrinology: Denies polydipsia, polyphagia or polyuria Hematologic/Lymphatic Hematologic/Lymphatic: Denies easy bleeding, easy bruising or lymphadenopathy Allergic/Immunologic Allergic/Immunologic ED: Denies mouth swelling, tongue swelling or urticaria EXAM Physical Exam Const Vital Signs: 07/06/25 10:24 07/06/25 10:30 07/06/25 11:19 Temperature 98.9 F Temperature Source Temporal Pulse Rate 84 Pulse Rate [Lying] 75 Pulse Rate [Sitting (for 1 minute prior to obtaining)] 81 Pulse Rate [Standing (for 1 minute prior to obtaining)] 84 Respiratory Rate 20 H Respiratory Pattern Normal Blood Pressure 168/110 H Blood Pressure [Lying] 158/90 H Blood Pressure [Sitting (for 1 minute prior to obtaining)] 145/89 H Blood Pressure [Standing (for 1 minute prior to obtaining)] 134/100 H Blood Pressure Mean 129 Blood Pressure Mean [Lying] 112 Blood Pressure Mean [Sitting (for 1 minute prior to obtaining)] 107 Blood Pressure Mean [Standing (for 1 minute prior to obtaining)] 111 Pulse Ox 99 Oxygen Delivery Method Room Air Positive well nourished and well developed General Appearance ED: well developed and NAD HEENT Reports TM's clear and moist mucous membranes normocephalic and atraumatic; Negative for trauma or tenderness Tympanic Membrane ED: Yes TM's clear Eyes PERRL and EOMs intact bilaterally General Eye ED: Negative for pale conjunctiva or scleral icterus Neck no lymphadenopathy, supple and no JVD General: Negative for tenderness Chest Wall inspection of chest normal and palpation of chest normal Chest: Negative for tenderness Resp normal respiratory effort and clear to auscultation bilaterally Effort and Inspection: Negative for respiratory distress or pain with movement Auscultation: Negative for rhonchi, wheezes or diminished lung sounds Cardio regular rate, regular rhythm, S1 normal heart sound, S2 normal heart sound and no murmurs Peripheral Pulses: pulses 2+ throughout GI normal to inspection, nondistended, normoactive bowel sounds, soft to palpation, non-tender, non-distended and no masses Back/Spine no CVA tenderness and no thoracic nor lumbar tenderness Extremity normal to inspection General Extremety ED: Negative for edema General Extremity: Negative for edema Neuro oriented x3, CN's II-XII intact bilaterally, no sensory deficits noted and gait normal Sensorium / Orientation: awake, alert, oriented to person, oriented to place and oriented to time Motor Exam: strength 5/5 throughout and strength abnormal Psych mental status grossly normal Skin no rashes or lesions noted and no wounds MDM MDM MDM Narrative Medical decision making narrative: Patient presents with lightheadedness and cold symptoms. Clinically looks well. Negative Hallpike on exam. Ears are unremarkable. He does complaining of some ringing in the ears and with his history of vertigo concerned about possibility for M?ni?re's although he states that he has had no hearing loss. He does see a ear nose and throat physician. CBC with differential obtained showed white count 6.9 with hemoglobin 15.4 and platelet count of 194. Urinalysis was normal. 1 view chest x-ray unremarkable. COVID flu and RSV testing was negative. Chemistries unremarkable. Discussed results with the patient. Recommended follow-up with ENT. No antibiotics indicated. Suspect likely recovering from viral URI. Lab Data Attestation: I reviewed the patient's lab results. Labs: Laboratory Results - last 24 hr 07/06/25 07/06/25 11:08 11:13 WBC 6.9 RBC 5.14 Hgb 15.4 Hct 45.8 MCV 89.1 MCH 30.0 MCHC 33.6 RDW Std Deviation 42.7 RDW Coeff of Adrian 13.1 Plt Count 194 MPV 9.2 Immature Gran % (Auto) 0.100 Neut % (Auto) 71.0 H Lymph % (Auto) 19.9 [place] % (Auto) 7.4 Eos % (Auto) 1.0 Baso % (Auto) 0.6 Absolute Neuts (auto) 4.9 Absolute Lymphs (auto) 1.38 Nucleated RBC % 0 Urine Color Yellow Urine Clarity Clear Urine pH 7.0 Ur Specific [place] 1.005 Urine Protein 15 H Urine Glucose (UA) Normal Urine Ketones Negative Urine Occult Blood Negative Urine Nitrite Negative Urine Bilirubin Negative Urine Urobilinogen Normal Ur Leukocyte Esterase Negative Urine RBC 0 SEEN Urine WBC 0 SEEN Ur Squamous Epith Cells 0-5 SEEN Urine Bacteria 0 SEEN Urine Mucus 0 SEEN Discharge Plan Triage Chief Complaint: Other, Pain/Inj ED Provider: Jose Pleitez Dx/Rx/DC Orders Clinical Impression: Viral URI, Hx of vertigo Instructions: ED URI, Viral, No Abx (Adult) Prescriptions: No Action Citrucel Sugar Free powder 1,000 mg PO DAILY acetaminophen [Tylenol Extra Strength] 500 mg tablet 1,000 mg PO Q6H PRN (Reason: pain) cyclobenzaprine 5 mg tablet 5 mg PO TID PRN (Reason: muscle spasm) Qty: 30 0RF loratadine [Claritin] 10 mg tablet 10 mg PO QDAY amlodipine 5 MG tablet 5 mg PO DAILY Primary Care Provider: Abdoulaye Barber Referrals: Abdoulaye Barber MD [Primary Care Provider, Family Practice] Activity Restrictions/Additional Instructions: Follow-up with ear nose and throat physician to evaluate further ringing in the ears and vertigo with concern for possible M?ni?re's disease. Print Language: [place] Disposition Disposition: Home, Self Care
[2025-07-06 11:18] LABS: Hematocrit 45.8 % (40-54); Hemoglobin 15.4 g/dL (13.0-16.5); Immature Granulocytes Count 0.010 X10^3/uL (0.0-0.0); Mean Corp Hgb Conc 33.6 g/dL (32-36); Mean Corpuscular Volume 89.1 fL (80-94); Mean Platelet Vol. 9.2 fl (6.2-12.0); NRBC Flagged by Analyzer 0 % (0-5); Platelet Count 194 K/mm3 (150-450); RBC Distribution Width CV 13.1 % (11.6-14.6); RBC Distribution Width SD 42.7 fl (35.1-43.9); Red Blood Count 5.14 M/mm3 (4.6-6.2); White Blood Count 6.9 K/mm3 (4.4-11.0)
[2025-07-06 11:19] VITALS: BP 134/100; BP 145/89; BP 158/90; PULSE 75; PULSE 81; PULSE 84
[2025-07-06 11:20] LABS: Mucous, Urine 0 SEEN /hpf (<or=2+); Red Blood Cells-Urine 0 SEEN /hpf (0-5)
[2025-07-06] MEDS: 0.9% Normal Saline (1000mL) 1,000 ML 1000 ML IV (11:25)
[2025-07-06 11:28] LABS: Color, Urine Yellow (Yellow); Glucose, Dipstick Normal (Normal); Ketone-Dipstick Negative (Negative); Leukocyte Esterase-Dipstick Negative /ul (Negative); Nitrite-Dipstick Negative (Negative); Occult Blood-Urine Negative /ul (Negative); Protein-Dipstick 15 mg/dl (Negative); Specific Gravity, Urine 1.005 (1.002-1.030); Urine Bilirubin Dipstick Negative (Negative)
--- NOTE | 2025-07-06 11:30 | RAD_ITS ---
PROCEDURE: CHEST 1 VIEW (PORTABLE) 07/06/2025 REASON FOR EXAM: COUGH TECHNIQUE: Frontal view of the chest. COMPARISON: October 18, 2023 FINDINGS: There is elevation of the left hemidiaphragm, which can indicate paralysis, similar to the prior. Heart size mildly enlarged. Central vascularity appears within normal limits. There is subsegmental atelectasis or infiltrate in the medial right lung base. There is no pneumothorax or effusion. Aortic calcifications are noted. There is no visible acute bony abnormality. RAD/Chest 1 View (Portable) IMPRESSION: There is subsegmental atelectasis or infiltrate in the medial right lung base. Reading Location: [facility]
[2025-07-06 11:55] LABS: Squamous Epithelial Cells - UA 0-5 SEEN /hpf (0-5)
[2025-07-06 12:06] LABS: Anion Gap 11 (5-15); BUN 12 mg/dL (4-19); BUN/Creat Ratio 14.1 RATIO (10-20); Calcium,Total 9.1 mg/dL (7.6-11.0); Carbon Dioxide 26.4 mmol/L (21.0-32.0); Chloride 102 mmol/L (98-108); Estimated Creatinine Clearance 83.92 ml/min (50-250); Glucose 95 mg/dL (70-99); Potassium 4.0 mmol/L (3.3-5.1)
[2025-07-06 12:24] VITALS: BP 136/66; PULSE 78; RESP 16; O2SAT 98
[2025-07-06 12:40] VITALS: BP 136/78; PULSE 78; RESP 18; TEMP 37.1; O2SAT 99
== END 2025-07-06 12:41 | disposition home or self-care (01) ==
PROVIDERS: Emergency Provider Emergency Medicine; PCP Family Medicine; Visit Provider Emergency Medicine
DX: J06.9 Acute upper respiratory infection, unspecified (principal); I10 Essential (primary) hypertension; R42 Dizziness and giddiness; Z87.891 Personal history of nicotine dependence; Z86.69 Personal history of other diseases of the nervous system and sense organs; Z79.899 Other long term (current) drug therapy; Z90.49 Acquired absence of other specified parts of digestive tract
CPT/HCPCS: 71045; 80048; 81001; 85025; 87631; 96360; 99285

== ENCOUNTER 2025-09-22 11:50 | Emergency (ER) | payer MEDICARE, SELFPAY ==
[2025-09-22 11:51] VITALS: BP 142/91; PULSE 88; RESP 16; TEMP 36.6; O2SAT 99; BMI 29.1
--- NOTE | 2025-09-22 12:29 | EX.ED.DYSGE1 ---
HPI History of Present Illness Chief Complaint: Abd Pain Detail of Chief Complaint: Left lower quadrant abdominal pain, history of diverticulitis Informant: patient Onset/Context/Timing Onset: Days Context: Sudden Onset Timing: Continuous Quality: Pain Location: Left lower quadrant Current Severity: Mild Maximum Severity: Moderate Worsened by: Last evening walking and movement and this morning Relieved by: . Remaining still Associated Symptoms Associated Symptoms: Chills last evening Narrative Narrative: Patient is a 75-year-old male. He has history of diverticulitis. He had 12 inches of his colon resected by Dr. Nilay Chino. He has had recurrent diverticulitis since. He has had constipation the past couple days. He states his stool was size of rabbit pellets yesterday. He denies headache, visual, ocular auditory symptoms. He denies cardiac or respiratory symptoms. He does endorse left lower quadrant abdominal pain. He denies vomiting or diarrhea. He does endorse constipation. Denies blood or mucus in his stool. He denies urologic symptoms. Prior similar symptoms: Yes Recent Illness/Hospitalization: No PFSH PFSH Medical History DISH (diffuse idiopathic skeletal hyperostosis) COVID Wears glasses Wears dentures Cancer Prostate disease Back pain Hx of vertigo History of diverticulitis Former smoker Shortness of breath on exertion History of stress test History of irregular heartbeat History of anal fissures Anal pain Abdominal pain Hemorrhoids Chest pain Hypertension Home Medications ?Medication ?Instructions ?Recorded ?Last Taken ?Type methylcellulose (laxative) 1,000 mg PO DAILY 11/14/18 12/13/18 History (Citrucel Sugar Free oral powder) amlodipine 5 mg tablet 5 mg PO DAILY 10/05/19 11/29/21 History acetaminophen 500 mg tablet 1,000 mg PO Q6H PRN pain 01/15/22 Unknown History (Tylenol Extra Strength) cyclobenzaprine 5 mg tablet 5 mg PO TID PRN muscle spasm #30 12/04/24 Unknown Rx tabs loratadine 10 mg tablet (Claritin) 10 mg PO QDAY 02/05/25 Unknown History Allergy/AdvReac Type Severity Reaction Status Date / Time lisinopril Allergy Angioedema Verified 09/22/25 11:53 Family History Mother Cancer Brother Cancer Surgical History Hx of bladder repair surgery Hx of biopsy S/P hemorrhoidectomy H/O colonoscopy History of inguinal hernia repair History of colon surgery S/P laparoscopic cholecystectomy Social History Smoking Status: Former smoker alcohol intake: never substance use type: does not use ROS ROS ED Constitutional Constitutional ED: Reports chills; Denies fever(s) or sweats Eyes Eyes: Denies blurry vision ENT ENT ED: Denies ear pain, rhinorrhea or sore throat Cardiovascular Cardiovascular: Denies chest pain, orthopnea, palpitations or racing heartbeat Respiratory/Chest Respiratory/Chest: Denies cough, dyspnea, dyspnea on exertion or orthopnea Gastrointestinal Gastrointestinal: Reports abdominal pain and constipation; Denies diarrhea, melena, nausea or vomiting Genitourinary Genitourinary ED: Denies dysuria, hematuria or urinary frequency Musculoskeletal Musculoskeletal: Denies arthralgias or myalgias Integumentary Denies rash Hematologic/Lymphatic Hematologic/Lymphatic: Reports systems reviewed and no addt'l complaints, except as documented EXAM Physical Exam Const Vital Signs: 09/22/25 11:51 Temperature 97.9 F Temperature Source Oral Pulse Rate 88 Respiratory Rate 16 Blood Pressure 142/91 H Blood Pressure Mean 108 Pulse Ox 99 Oxygen Delivery Method Room Air Positive well nourished and well developed General Appearance ED: well developed and NAD; Negative for cyanotic, diaphoretic or pallor HEENT Reports moist mucous membranes HEENT Narrative: Head is atraumatic and normocephalic. Ears normal. Nares patent. Posterior pharynx is normal. Eyes PERRL and EOMs intact bilaterally General Eye ED: Negative for pale conjunctiva or scleral icterus Resp normal respiratory effort and clear to auscultation bilaterally Cardio regular rate, regular rhythm, S1 normal heart sound, S2 normal heart sound and no murmurs GI non-distended and no masses; Negative for non-tender or hepatosplenomegaly Auscultation: hypoactive bowel sounds Palpation: soft, tender LLQ, guarding LLQ and rebound tenderness present other (Left lower quadrant); Negative for splenomegaly or mass Narrative: No inguinal lymphadenopathy. Extremity General Extremety ED: Negative for edema or tenderness General Extremity: Negative for edema Neuro Sensorium / Orientation: alert Psych mental status grossly normal Skin no rashes or lesions noted and no wounds General Skin Exam: Negative for jaundice or pallor MDM MDM MDM Narrative Medical decision making narrative: Patient with left lower quadrant abdominal pain. With history of constipation prior episodes of diverticulitis suspect patient has diverticulitis. Because he has peritoneal findings will obtain CT determine if he has simple acute diverticulitis versus perforation versus abscess formation. Appropriate blood work was obtained. This was obtained to risk ratified whether patient is safe to discharge to home versus admission. Review of prior records were undertaken. He has had resection of his bowel by Dr. Lenz. He also had episodes of diverticulitis since the bowel resection. His only medication is amlodipine for hypertension. History & Record Review Additional record(s) reviewed:: Prior inpatient record, Prior ED visit and Prior labs Lab Data Attestation: I reviewed the patient's lab results. Lab results narrative: CBC is normal. Basic metabolic panel is normal. Labs: Laboratory Results - last 24 hr 09/22/25 12:12 WBC 9.1 RBC 4.95 Hgb 14.9 Hct 45.3 MCV 91.5 MCH 30.1 MCHC 32.9 RDW Std Deviation 46.6 H RDW Coeff of Adrian 13.8 Plt Count 203 MPV 10.1 Immature Gran % (Auto) 0.300 Neut % (Auto) 72.6 H Lymph % (Auto) 18.0 L [place] % (Auto) 7.4 Eos % (Auto) 1.4 Baso % (Auto) 0.3 Absolute Neuts (auto) 6.6 Absolute Lymphs (auto) 1.64 Nucleated RBC % 0 Sodium 143 Potassium 4.6 Chloride 105 Carbon Dioxide 28.2 Anion Gap 10 BUN 13 Creatinine 0.77 Estim Creat Clear Calc 89.65 Est GFR (MDRD) Non-Af 94 BUN/Creatinine Ratio 16.6 Glucose 93 Calcium 9.0 Radiography Diagnostic Testing: Clinical Impression(s) from Imaging Studies Abdomen/Pelvis CT 09/22/25 13:00 IMPRESSION: Fatty infiltration of the liver. Status post cholecystectomy. Stable left renal cyst. Prosthetic enlargement with indentation of the bladder base. Surgical anastomosis seen in the rectum. Reading Location: [id number] CT was reviewed by me. I did not see any evidence of diverticulitis. The radiology report was reviewed. There is evidence of a fatty infiltration of the liver. Patient is status postcholecystectomy. He has a stable left renal cyst. There there is prostatic enlargement with indentation of the base of the bladder. And the anastomosis noted where he had resection due to diverticulitis. There is no evidence of diverticulitis per radiologist. Patient was informed the cause of his pain is unknown. Since his labs are all normal his CT reveals no acute pathology he will be discharged to home Discharge Plan Triage Chief Complaint: Abd Pain ED Provider: Lico Cooper Dx/Rx/DC Orders Clinical Impression: Abdominal pain, left lower quadrant, Elevated blood pressure reading with diagnosis of hypertension, History of diverticulitis Instructions: ED Abdominal Pain Unkn Cause Male... Prescriptions: No Action Citrucel Sugar Free powder 1,000 mg PO DAILY acetaminophen [Tylenol Extra Strength] 500 mg tablet 1,000 mg PO Q6H PRN (Reason: pain) cyclobenzaprine 5 mg tablet 5 mg PO TID PRN (Reason: muscle spasm) Qty: 30 0RF loratadine [Claritin] 10 mg tablet 10 mg PO QDAY amlodipine 5 MG tablet 5 mg PO DAILY Primary Care Provider: Chava Mascorro Referrals: Abdoulaye Barber MD [Non-Staff, Family Practice] - 3-5 Days if not improving Print Language: [place] Disposition Disposition: Home, Self Care
[2025-09-22 12:45] LABS: Hematocrit 45.3 % (40-54); Hemoglobin 14.9 g/dL (13.0-16.5); Immature Granulocytes Count 0.030 X10^3/uL (0.0-0.0); Mean Corp Hgb Conc 32.9 g/dL (32-36); Mean Corpuscular Volume 91.5 fL (80-94); Mean Platelet Vol. 10.1 fl (6.2-12.0); NRBC Flagged by Analyzer 0 % (0-5); Platelet Count 203 K/mm3 (150-450); RBC Distribution Width CV 13.8 % (11.6-14.6); RBC Distribution Width SD 46.6 fl (35.1-43.9); Red Blood Count 4.95 M/mm3 (4.6-6.2); White Blood Count 9.1 K/mm3 (4.4-11.0)
--- NOTE | 2025-09-22 13:00 | CT_ITS ---
PROCEDURE: ABDOMEN/PELVIS W IV CONT ONLY 09/22/2025 REASON FOR EXAM: LLQ WITH GUARDING AND LOCALIZED PERITONITIS, HX DI TECHNIQUE: Procedure Code: [id number] Modality: CT Procedure: ABDOMEN/PELVIS W IV CONT ONLY Coronal and Sagittal reconstruction series were provided. CONTRAST: Isovue-300 VOLUME: 95 mL One or more dose reduction techniques were used (e.g., Automated exposure control, adjustment of the mA and/or kV according to patient size, use of iterative reconstruction technique. RADIATION DOSE SUMMARY: CTDlvol: 16.6 mGy DLP: 1119.56 mGycm COMPARISON: November 27, 2021. FINDINGS: Lung bases: Mild degree of increased markings at the left lung base suggestive of atelectasis and/or mild scarring. Liver: Diffuse fatty infiltration. Minimal degree of central intrahepatic biliary ductal dilatation most likely secondary to the post cholecystectomy state. Gallbladder: Surgically absent. Spleen: Normal size. Pancreas: Normal size without evidence of mass surrounding inflammation or ductal dilation. Adrenals: Unremarkable Kidneys: There is a 3.4 cm cyst in the upper medial aspect of the left kidney. No evidence of hydronephrosis. Bladder: The bladder is contracted. Prosthetic enlargement with indentation of the bladder base. The prostate measures 4.4 cm by 5.9 cm. There is prominence of the seminal vesicles bilaterally. Bowel: Surgical anastomosis in the rectum. Surgical clips are seen in the right hemicolon. Appendix: The appendix is not identified. There is no inflammatory process identified in the right lower quadrant to suggest appendicitis. Lymph nodes: Unremarkable. Vasculature: Mild diffuse atherosclerotic calcifications are noted. Peritoneum / Retroperitoneum: Small bilateral inguinal hernias containing fat slightly more prominent on the left side. Bones: Degenerative changes of the spine. CT/Abdomen/Pelvis W IV Cont ONLY IMPRESSION: Fatty infiltration of the liver. Status post cholecystectomy. Stable left renal cyst. Prosthetic enlargement with indentation of the bladder base. Surgical anastomosis seen in the rectum. Reading Location: [place] [id number]
[2025-09-22 13:17] LABS: Anion Gap 10 (5-15); BUN 13 mg/dL (4-19); BUN/Creat Ratio 16.6 RATIO (10-20); Calcium,Total 9.0 mg/dL (7.6-11.0); Carbon Dioxide 28.2 mmol/L (21.0-32.0); Chloride 105 mmol/L (98-108); Estimated Creatinine Clearance 89.65 ml/min (50-250); Glucose 93 mg/dL (70-99); Potassium 4.6 mmol/L (3.3-5.1)
[2025-09-22 14:21] VITALS: BP 125/78; BP 141/77; PULSE 72; PULSE 78; RESP 16; TEMP 36.6; O2SAT 100; O2SAT 99
== END 2025-09-22 14:29 | disposition home or self-care (01) ==
PROVIDERS: Emergency Provider Emergency Medicine; PCP Family Medicine; Visit Provider Emergency Medicine
DX: R10.32 Left lower quadrant pain (principal); I10 Essential (primary) hypertension; Z90.49 Acquired absence of other specified parts of digestive tract; Z79.899 Other long term (current) drug therapy; Z87.19 Personal history of other diseases of the digestive system; Z87.891 Personal history of nicotine dependence
CPT/HCPCS: 74177; 80048; 85025; 96374; 99283; Q9967; A4216